=== PATIENT | female | born 1990 | race Caucasian/White ===

== ENCOUNTER 2019-08-09 08:28 | Inpatient (IN) | payer MEDICAID, SELFPAY ==
[2019-08-09] VITALS (22 sets, daily range): BP systolic 85–124; BP diastolic 50–89; PULSE 93–114; RESP 20–37; TEMP 37.1–38.1; O2SAT 86–98; BMI 18.3; BMI 17.2; BMI 17.3
--- NOTE | 2019-08-09 08:37 | EKG12_ITS ---
Test Reason : SOB Blood Pressure : / mmHG Vent. Rate : 107 BPM Atrial Rate : 107 BPM P-R Int : 168 ms QRS Dur : 076 ms QT Int : 340 ms P-R-T Axes : 037 020 025 degrees QTc Int : 453 ms Sinus tachycardia T wave abnormality, consider anterior ischemia Abnormal ECG Confirmed by ANDREW GARAY, BRENDA ([id number]), photograph editor SHANELLE MOREIRA ([id number]) on 08/12/2019 3:21:39 PM Referred By: NASH Confirmed By:BRENDA MORALES MD
--- NOTE | 2019-08-09 08:37 | RAD_ITS ---
STUDY: X-RAY CHEST REASON FOR EXAM: Female, 29 years old. Dyspnea. Possible aspiration. TECHNIQUE: AP semierect portable view. COMPARISON: None. FINDINGS: Left subclavian approach Essl-T-Lvjwpfam tip is in the SVC. Tracheostomy tube in place. Electronic device in the left chest with the radiopaque wire terminating in the left neck base is presumably used for pain control. Pulmonary hypoinflation. No suspicious infiltrates. There is no demonstrated pleural abnormality. Normal size heart. Normal mediastinum and nannette. Normal visualized pulmonary arteries. Normal visualized aortic arch and descending thoracic aorta. U-shaped metallic jason in the thoracolumbar spine with metallic wires from previous scoliosis surgery. Normal visualized ribs, clavicles, and shoulders. There is no demonstrated abnormality of the visualized soft tissue structures of the upper abdomen. RAD/Chest 1 View (Portable) IMPRESSION: 1. No acute cardiopulmonary morphology. 2. Long U-shaped metallic jason in the thoracolumbar spine with multiple metallic wires from previous scoliosis surgery. Electronically Signed: Colt Burciaga MD at 10:16 EDT , Service support ,
[2019-08-09 09:07] LABS: Mucous, Urine 0 SEEN /hpf (<or=2+); Red Blood Cells-Urine 0 SEEN /hpf (0-5)
[2019-08-09 09:08] LABS: Color, Urine Yellow (Yellow); Glucose, Dipstick Normal (Normal); Ketone-Dipstick Negative (Negative); Leukocyte Esterase-Dipstick 25 /ul (Negative); Nitrite-Dipstick Negative (Negative); Occult Blood-Urine 10 /ul (Negative); Protein-Dipstick 100 mg/dl (Negative); Urine Bilirubin Dipstick Negative (Negative); Urine Clarity Sl. Cloudy (Clear); Urine Urobilinogen Normal (Normal)
[2019-08-09 09:15] LABS: Bacteria 2+ /hpf (None Seen); Squamous Epithelial Cells - UA 5-10 SEEN /hpf (5-10); White Blood Cells 0-5 SEEN /hpf (0-5)
--- NOTE | 2019-08-09 09:48 | ED.RN ---
port accessed, mom unsure if power port. Power port catheter used but marked regular until verified. Port flushes very difficult but pump manages without difficulties. Mom very comfortable suctioning patient as she needs, which is very frequent.
--- NOTE | 2019-08-09 09:58 | ED.DCSUM_ITS ---
- ER Visit Summary Date of Service: 08/09/19 Chief Complaint: [Shortness of breath] History of Present Illness: The patient is a 29 F [presents to the emergency department with complaint of shortness of breath that started yesterday initially. 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 The patient has the port flushed once a month. Patient had an episode yesterday of vomiting after being fed through her Prem button. Mother is concerned that the patient may have aspirated. Patient has had history of aspiration pneumonia but has not been hospitalized for over 3 years. Patient normally gets her care at [facility]. Mother states the patient developed a fever today. She has not been out of the house in November and does have nursing that comes into the home but no sick contacts known. No exposures to COVID-19 known.] Patient is nonverbal. Physical Examination: [HEENT-PERRLA, EOMI. Cranial nerves II through XII grossly intact. TMs clear. Mucous membranes moist. No adenopathy. Cardiovascular-regular rate and rhythm without murmur or ectopy Lungs-coarse breath sounds bilaterally with rhonchi noted bilaterally. Mild tachypnea. No excessive muscle use or retractions. Abdomen-normoactive bowel sounds, soft, nontender, no rebound or rigidity, no peritoneal signs. Extremities-intact ?4, normal range of motion, normal pulses, atraumatic] Test Results: [EKG obtained arrival shows sinus tachycardia with a ventricular rate of 107 bpm with no acute ST segment changes noted. CBC with differential count 16.3, hemoglobin 14, hematocrit 40, placed to 78. Chemistry showed a sodium 121, potassium 3.4, chloride 87, CO2 28. Lactate was 0.4. Urinalysis was normal. Chest x-ray showed nothing acute.] Emergency Department Course and Treatment: [Patient had her port accessed on arrival. She was ordered normal saline. I performed a femoral stick to obtain blood from her femoral vein as she has poor vascular access.] I was asked obtain a COVID-19 test on patient prior to admission to the floor which was negative for COVID-19. Treatment Plan: [IV line established and patient was ordered normal saline fluid bolus as well as Zosyn 4.5 g IV.] Disposition: [Admit] Impression: [Sepsis Hypoxia Hyponatremia Aspiration pneumonia-clinically] This note was generated with RealOps dictation software. It may contain incorrect words, spelling, and punctuation that were not noted in review of the chart prior to signing ED Disposition - Plan for ED Patient: Referrals: [facility] Doctor,Out of [NON-STAFF] -
[2019-08-09 09:59] LABS: Absolute Lymphocyte Count 0.68 X10^3/uL (0.83-4.51); Absolute Neutrophil Count 13.9 X10^3/uL (2.0-7.7); Basophil# 0.04 X10^3/uL; Basophil% 0.2 % (0-1); Eosinophil# 0.04 X10^3/uL; Eosinophils% 0.2 % (0-5); Hematocrit 39.6 % (37-47); Hemoglobin 13.9 g/dL (12.0-15.0); Lymphocyte # 0.68 X10^3/ul (4.0); Lymphocyte % 4.2 % (19-41); Mean Corp Hgb Conc 35.1 g/dL (32-36); Mean Corpuscular Hgb 30.8 pg (27.0-32.0); Mean Corpuscular Volume 87.8 fL (81-99); Mean Platelet Vol. 8.4 fl (6.2-12.0); Monocyte# 1.59 X10^3/uL; Monocyte% 9.8 % (0-10); NRBC Flagged by Analyzer 0 % (0-5); Neutrophil # 13.88 X10^3/uL (2.7-7.7); Neutrophil % 85.2 % (47-70); POSITIVE DIFFERENTIAL YES; Platelet Count 278 K/mm3 (150-450); RBC Distribution Width CV 11.5 % (11.6-14.6); RBC Distribution Width SD 37.1 fl (35.1-43.9); Red Blood Count 4.51 M/mm3 (4.2-5.4); White Blood Count 16.3 K/mm3 (4.4-11.0)
[2019-08-09 10:07] LABS: Differential Indicated SCAN CRITERIA MET
[2019-08-09 10:09] LABS: Anion Gap 6 (5-15); BUN 5 mg/dL (7-18); BUN/Creat Ratio 24.8 RATIO (10-20); Calcium,Total 8.6 mg/dL (8.5-10.1); Chloride 87 mmol/L (98-107); EST Glomerular Filtration Rate 447 mL/min (>60); Est Glom Filt Rate - Afr Amer 541 mL/min (>60); Estimated Creatinine Clearance 322.83 ml/min; Glucose 92 mg/dL (74-106); Potassium 3.4 mmol/L (3.5-5.1); Sodium Level 121 mmol/L (136-145)
[2019-08-09] MEDS: 0.9% Normal Saline 1,000 ML 150 ML IV (10:11)
[2019-08-09 10:23] LABS: Lactic Acid 0.4 mmol/L (0.4-1.9)
[2019-08-09 10:27] LABS: Differential Comment SCANNED
--- NOTE | 2019-08-09 14:42 | PCM.HP.STD ---
Problem List (1) Sepsis Status: Acute (2) Hyponatremia Status: Acute (3) Aspiration pneumonia Status: Acute (4) Status post insertion of percutaneous endoscopic gastrostomy (PEG) tube Status: Chronic (5) Status post tracheostomy Status: Chronic (6) GERD (gastroesophageal reflux disease) Status: Chronic (7) Seizure disorder Status: Chronic (8) Mental disability Status: Chronic (9) Developmental disability Status: Chronic (10) Cerebral palsy Status: Chronic History of Present Illness Date of Admission: 08/09/19 Chief Complaint: Shortness of breath. The patient is a 29 year old F with past medical history as mentioned above who is a bedridden since childhood presented to the emergency room by her mother because of shortness of breath. At this time, patient was sleeping but arousable and her mother was at the bedside. Patient is not able to provide any history because of mental and developmental disabilities. Mother gave the full history. According to the mother, patient had an episode of vomiting yesterday, secretions from both her nose, mouth as well as tracheostomy and she aspirated twice. Since then, patient has been short of breath, requiring more oxygen than usual and she had a fever of 101.4 Fahrenheit today morning. Yesterday, her temperature was 99.8 Fahrenheit according to the mother. Mother mentioned that patient has been coughing since then, having lots of secretions coming out from her mouth and tracheostomy tube. Mother mentioned that patient takes around 4000 cc of tube feeds and fluids every day and she has been on this amount for the last 3 years. Patient with a history of mental retardation and developmental disabilities and she has been bedridden since childhood. She had history of Rett syndrome with cerebral palsy and as mentioned above, has been bedridden since younger age. She will history of seizure disorder and she has been on multiple medications including Lamictal, Keppra and phenytoin as well as Banzel. Patient history of GERD but obviously, she is not on PPI. Patient's mother mentioned that she had a history of recurrent aspiration pneumonia with the same scenario. In the emergency department, patient had a low-grade fever, was tachycardic, tachypneic, dyspneic and she was on trach collar with FiO2 of 50%. At home, mother mentioned that patient has been on oxygen at 2 L mainly at night. During daytime, she does not need oxygen. Her routine blood work was remarkable for leukocytosis, sodium of 121, potassium 3.4, BUN of 5, creatinine of 0.20. Lactic acid was normal. Urinalysis revealed cloudy urine, negative for nitrite, there was only 25 leukocyte esterase, there was 0-5 WBCs and 2+ bacteria. Testing for COVID-19 performed and came back negative. Chest x-ray showed no acute infiltrate, consolidation or effusion. EKG revealed sinus tachycardia, no acute ischemic changes. She is being admitted for aspiration pneumonia highly suspected on clinical evaluation with sepsis and also found to have hyponatremia and mild hypokalemia. Past Medical History Past Medical History (Chronic Problems): Chronic Problems Status post insertion of percutaneous endoscopic gastrostomy (PEG) tube (Chronic) Status post tracheostomy (Chronic) GERD (gastroesophageal reflux disease) (Chronic) Seizure disorder (Chronic) Mental disability (Chronic) Developmental disability (Chronic) Cerebral palsy (Chronic) Allergies latex Allergy (Verified 08/09/19 08:30) Rash hydromorphone [From Dilaudid] Adverse Reaction (Verified 08/09/19 08:30) Shortness of breath morphine Adverse Reaction (Verified 08/09/19 08:30) Shortness of breath Home Medications: Ambulatory Orders Medication Instructions Recorded Albuterol Aerosols [Ventolin 2.5 mg INHALATION TID 08/09/19 Aerosols] Cetirizine HCl 10 ml PO DAILY 08/09/19 Lamotrigine [Lamictal] 1.5 tab PO QHS 08/09/19 Lamotrigine [Lamictal] 400 mg PO DAILY 08/09/19 Levetiracetam 10 ml PO BID 08/09/19 Multivitamin,Therapeutic [Therems] 1 ea PO DAILY 08/09/19 Phenytoin 6 ml PO BID 08/09/19 Potassium Chloride 10 ml PO BID 08/09/19 Rufinamide [Banzel] 2 tab PO 4X/DAY 08/09/19 Surgical History: - - PEG tube insertion, port, back surgery. Placement of vagal nerve stimulator. 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 Denies: Anorexia Eyes: Denies: Blurred vision, Double vision, Drainage, Redness HEENT: Denies: Difficulty Hearing, Ear Pain, Eye Pain, Nasal Congestion, Sore Throat Cardiovascular: Denies: Chest Pain, Chest Pressure, Palpitations, Syncope Respiratory: Reports: Cough, Shortness of Breath. Denies: Sputum production, Wheezing Gastrointestinal: Reports: Vomiting. Denies: Abdominal Pain, Constipation, Diarrhea, Nausea Genitourinary: Denies: Dysuria, Frequency, Hematuria Musculoskeletal: Denies: Arm Pain, Back Pain, Foot Pain Skin: Denies: Dryness, Rash Neurological: Denies: Balance problems, Double vision, Change in Speech, Headaches, Incoordination Psychiatric: Denies: Anxiety, Depression Endocrine: Denies: Change in Body Habitus, Polydipsia, Polyuria VTE Information - Inpt Only VTE Present on Admission: Yes VTE Mechan Device Prophylaxis: None VTE Pharm Prophylaxis ordered?: Yes Patient Problems: Active and Suspected Problems Sepsis (Acute) Hyponatremia (Acute) Aspiration pneumonia (Acute) - Physical Exam Vitals/I&O's: Vital Signs Temp Pulse Resp BP Pulse Ox 99.5 F H 105 H 32 H 103/62 97 08/09/19 14:28 08/09/19 14:28 08/09/19 14:28 08/09/19 14:28 08/09/19 14:28 Oxygen Flow Rate (L/min) 14 Oxygen Delivery Method Venturi Mask Weight: 106 lb 11.26 oz Body Mass Index (BMI) 18.3 Intake and Output for Last 24 Hours 08/07/19 08/08/19 08/09/19 23:59 23:59 23:59 Intake Total 100 / 100 Balance 100 / 100 General: - - Sleeping but arousable. Mildly short of breath. HEENT: Atraumatic, PERRLA, Normocephalic Oral: Moist Mucosa, No Gingival or Mucosal Lesions/ Ulcerations Neck: Supple, No JVD, Negative Carotid Bruits, Trachea Midline, Thyroid Normal Size and Texture Lungs: Normal air movement, No wheeze, No rales, Diminished, Rhonchi Cardiovascular: Regular rate, Regular Rhythm, Normal S1, Normal S2, PMI Normal, Tachycardic Abdomen: Bowel Sounds Present, Soft, Non Tender, Non-Distended, No Hepato-splenomegaly, - - PEG tube in place. Extremities: No clubbing, No cyanosis, Edema, - Skin: No rashes, No breakdown Lymphatic: No Cervical, Supraclavicular, or Inguinal Adenopathy Neurological: Cranial nerves II-XII grossly intact, - - Underdeveloped both upper and lower extremities, quadriplegia. Psych/Mental Status: - - Unable to assess. Microbiology Past 72 Hours 08/09/19 10:52 Mucosa - Nasopharyngeal Coronavirus COVID-19 PCR - Final Laboratory Results 08/09/19 09:00: Urine Color Yellow, Urine Clarity Sl. Cloudy, Urine pH 7.0, Ur Specific [place] 1.010, Urine Protein 100 H, Urine Glucose (UA) Normal, Urine Ketones Negative, Urine Occult Blood 10 H, Urine Nitrite Negative, Urine Bilirubin Negative, Urine Urobilinogen Normal, Ur Leukocyte Esterase 25 H, Urine RBC 0 SEEN, Urine WBC 0-5 SEEN, Ur Squamous Epith Cells 5-10 SEEN, Urine Bacteria 2+, Urine Mucus 0 SEEN 08/09/19 09:40: WBC 16.3 H, RBC 4.51, Hgb 13.9, Hct 39.6, MCV 87.8, MCH 30.8, MCHC 35.1, RDW Std Deviation 37.1, RDW Coeff of Mendez 11.5 L, Plt Count 278, MPV 8.4, Immature Gran % (Auto) 0.400, Neut % (Auto) 85.2 H, Lymph % (Auto) 4.2 L, [place] % (Auto) 9.8, Eos % (Auto) 0.2, Baso % (Auto) 0.2, Absolute Neuts (auto) 13.9 H, Absolute Lymphs (auto) 0.68 L, Nucleated RBC % 0, Differential Comment SCANNED, Diff Path Review July08/09/19 09:40: Sodium 121 L, Potassium 3.4 L, Chloride 87 L, Carbon Dioxide 28.0, Anion Gap 6, BUN 5 L, Creatinine 0.20 L, Estim Creat Clear Calc 322.83, Est GFR (MDRD) Af Amer 541, Est GFR (MDRD) Non-Af 447, BUN/Creatinine Ratio 24.8 H, Glucose 92, Calcium 8.6 08/09/19 09:40: Lactic Acid 0.4 08/09/19 10:52: COVID-19 (KATARINA) Cancelled Clinical Impression(s) from Imaging Studies Chest X-Ray 08/09/19 08:37 IMPRESSION: 1. No acute cardiopulmonary morphology. 2. Long U-shaped metallic jason in the thoracolumbar spine with multiple metallic wires from previous scoliosis surgery. Electronically Signed: Colt Burciaga MD at 10:16 EDT , Service support , Current Medications Sodium Chloride () 1,000 mls @ 150 mls/hr IV .[id number] ONE Stop: 08/09/19 15:16 Last Admin: 08/09/19 10:11 Dose: 150 mls/hr Documented by: Assessment/Plan All Active Problems Sepsis (Acute) Hyponatremia (Acute) Aspiration pneumonia (Acute) This is a 29 years old female patient presented to the emergency room because of shortness of breath, cough and fever and she was found to have sepsis attributed to aspiration pneumonia diagnosed by clinical evaluation although chest x-ray revealed no evidence of acute infiltrate and she is being admitted for evaluation and treatment. #1 aspiration pneumonia/sepsis: This is based on clinical evaluation. Chest x-ray reviewed, no obvious infiltrate. Patient had spikes of low-grade fever in the ED, was dyspneic, tachypneic and does have leukocytosis. Lactic acid was normal. Testing for COVID-19 came back negative. Plan: Admit to PCU, cardiac monitoring, blood culture, urine culture, sputum culture, start IV Zosyn, albuterol inhaler 4 times daily, repeat CBC and BMP tomorrow morning, Tylenol PRN through the G-tube, IV Zofran PRN, chest physiotherapy, speech therapy evaluation and treatment, resume tube feeds, PT OT evaluation and treatment. #2 hyponatremia/hypokalemia: Patient's mother mentioned that her sodium and potassium are always low as well as her BUN/creatinine. She mentioned that her daughter takes around 4000 cc of tube feeds and fluids every day which I think it is very large amount. Given her low BUN and creatinine as well as vomiting and aspiration, hypervolemia could be the reason why her sodium is low. Plan: Urine is bloody, serum was bloody, urine sodium, urine potassium, urine creatinine, gentle IV fluids for hydration, repeat BMP tomorrow morning. #3 status post PEG tube/status post tracheostomy: Normally, she is on oxygen at 2 L mainly at night, not on oxygen during daytime. At this time, she is on trach collar with FiO2 of 50%. Plan to continue same, titrate as tolerated. #4 cerebral palsy/MRDD: Patient is bedridden, plan for PT OT, chest physiotherapy, supportive treatment. #5 seizure disorder: Stable, continue Lamictal, Keppra and phenytoin as well as Banzel. #6 GERD: Start IV Pepcid twice daily. #7 CODE STATUS: Full code, discussed with mother. #8 DVT prophylaxis consult [facility]. This note was generated with Entrec dictation software. It may contain incorrect words, spelling, and punctuation that were not noted in checking the note before signing. Inpatient E&M: 11067 Init Hosp L3
[2019-08-09 15:38] LABS: Magnesium 1.7 mg/dL (1.6-2.6)
[2019-08-09 16:10] LABS: Osmolality, Serum 245 mOsm/KG (275-295)
[2019-08-09 18:13] LABS: Urine Chloride 18 mmol/L (Not Establ.)
[2019-08-09 18:19] LABS: Urine Sodium 37 mmol/L (Not Establ.)
[2019-08-09 18:23] LABS: Osmolality, Urine 447 mOsm/KG
[2019-08-09] MEDS: Phenytoin Na 100 MG/4 ML UDC 150 MG GT (18:39)
[2019-08-09] MEDS: levETIRAcetam Oral Solution 500 MG/5 ML 1000 MG GT (18:39)
[2019-08-09] MEDS: LORazepam 1 MG Tablet GT (18:39)
[2019-08-09] MEDS: Albuterol 2.5 MG/3 ML VIAL.NEB. INHALATION ×2 (18:40→23:06)
[2019-08-09] MEDS: Ondansetron 4 MG/2 ML Vial IV (19:51)
[2019-08-09] MEDS: 0.9% Saline Lock 10 ML Syringe IV (19:51)
[2019-08-09] MEDS: lamoTRIgine 100 MG Tablet 300 MG GT (21:00)
[2019-08-09] MEDS: hydroCHLOROthiazide 12.5mg 12.5 MG GT (21:00)
[2019-08-09] MEDS: Famotidine 200 MG/20 ML MDV 20 MG in 0.9% Normal Saline (Pres. free 8 ML 300 MG IV (22:48)
[2019-08-10] VITALS (40 sets, daily range): BP systolic 86–147; BP diastolic 52–120; PULSE 78–122; RESP 18–36; TEMP 36.6–37.9; O2SAT 50–99
[2019-08-10] MEDS: Albuterol 2.5 MG/3 ML VIAL.NEB. INHALATION ×6 (02:45→22:31)
[2019-08-10] MEDS: LORazepam 1 MG Tablet GT ×3 (05:38→23:01)
[2019-08-10 06:08] LABS: Absolute Lymphocyte Count 0.66 X10^3/uL (0.83-4.51); Absolute Neutrophil Count 10.7 X10^3/uL (2.0-7.7); Basophil# 0.03 X10^3/uL; Basophil% 0.2 % (0-1); Eosinophil# 0.01 X10^3/uL; Eosinophils% 0.1 % (0-5); Hematocrit 37.7 % (37-47); Hemoglobin 12.9 g/dL (12.0-15.0); Lymphocyte # 0.66 X10^3/ul (4.0); Lymphocyte % 5.1 % (19-41); Mean Corp Hgb Conc 34.2 g/dL (32-36); Mean Corpuscular Hgb 31.2 pg (27.0-32.0); Mean Corpuscular Volume 91.1 fL (81-99); Mean Platelet Vol. 8.6 fl (6.2-12.0); Monocyte# 1.54 X10^3/uL; Monocyte% 11.8 % (0-10); NRBC Flagged by Analyzer 0 % (0-5); Neutrophil # 10.74 X10^3/uL (2.7-7.7); Neutrophil % 82.2 % (47-70); POSITIVE DIFFERENTIAL YES; Platelet Count 260 K/mm3 (150-450); RBC Distribution Width CV 11.9 % (11.6-14.6); RBC Distribution Width SD 39.5 fl (35.1-43.9); Red Blood Count 4.14 M/mm3 (4.2-5.4); White Blood Count 13.1 K/mm3 (4.4-11.0)
[2019-08-10 06:28] LABS: Differential Indicated SCAN CRITERIA MET
[2019-08-10 06:35] LABS: Anion Gap 8 (5-15); BUN 5 mg/dL (7-18); BUN/Creat Ratio 28.1 RATIO (10-20); Calcium,Total 8.2 mg/dL (8.5-10.1); Chloride 103 mmol/L (98-107); Creatinine, Serum 0.18 mg/dL (0.55-1.02); EST Glomerular Filtration Rate 518 mL/min (>60); Est Glom Filt Rate - Afr Amer 626 mL/min (>60); Estimated Creatinine Clearance 337.95 ml/min; Glucose 75 mg/dL (74-106); Potassium 3.2 mmol/L (3.5-5.1); Sodium Level 136 mmol/L (136-145)
[2019-08-10 08:00] LABS: Differential Comment SCANNED
--- NOTE | 2019-08-10 08:52 | PCM.PROGNOTE ---
Patient Problems: Active and Suspected Problems Sepsis (Acute) Hyponatremia (Acute) Aspiration pneumonia (Acute) Subjective: Chief complaint: Follow-up after admission for aspiration pneumonia, sepsis, hypokalemia and hyponatremia. Patient seen and examined. No acute events overnight. This morning, patient is alert, opening eyes spontaneously, not following commands. She looked slightly agitated. Suction was done this morning and she received albuterol treatment. She is afebrile, tachycardic, pulse ox is 96% on trach collar. Patient's mother mentioned that usually she gets tachycardic upon agitation or when she wants to urinate. - Physical Exam Vitals/I&O's: Vital Signs Temp Pulse Resp BP Pulse Ox 98.6 F 114 H 26 H 121/105 H 96 08/10/19 08:00 08/10/19 08:00 08/10/19 08:00 08/10/19 08:00 08/10/19 08:00 Oxygen Flow Rate (L/min) 12 Oxygen Delivery Method Trach Collar Weight: 100 lb 8.493 oz Body Mass Index (BMI) 17.2 Intake and Output for Last 24 Hours 08/08/19 08/09/19 08/10/19 23:59 23:59 23:59 Intake Total 1776.04 / 1776.04 543.96 / 543.96 Balance 1776.04 / 1776.04 543.96 / 543.96 General: Alert, - - Minimally agitated, not following commands. HEENT: Atraumatic, PERRLA, EOMI, Normocephalic Oral: Moist Mucosa, No Gingival or Mucosal Lesions/ Ulcerations Neck: Supple, No JVD, Negative Carotid Bruits, Trachea Midline, Thyroid Normal Size and Texture Lungs: No wheeze, No rales, Diminished, Rhonchi, - - Decreased breath sounds bilateral, scattered rhonchi. Cardiovascular: Regular rate, Regular Rhythm, Normal S1, Normal S2, PMI Normal, Tachycardic Abdomen: Bowel Sounds Present, Soft, Non Tender, Non-Distended, No Hepato-splenomegaly, - - PEG tube in place. Extremities: No clubbing, No cyanosis, Edema Skin: No rashes, No breakdown Lymphatic: No Cervical, Supraclavicular, or Inguinal Adenopathy Neurological: Cranial nerves II-XII grossly intact, - - Underdeveloped both upper and lower extremities, quadriplegia. Psych/Mental Status: - - Unable to assess. Microbiology Past 72 Hours 08/09/19 10:52 Mucosa - Nasopharyngeal Coronavirus COVID-19 PCR - Final Laboratory Results 08/09/19 09:00: Urine Color Yellow, Urine Clarity Sl. Cloudy, Urine pH 7.0, Ur Specific [place] 1.010, Urine Protein 100 H, Urine Glucose (UA) Normal, Urine Ketones Negative, Urine Occult Blood 10 H, Urine Nitrite Negative, Urine Bilirubin Negative, Urine Urobilinogen Normal, Ur Leukocyte Esterase 25 H, Urine RBC 0 SEEN, Urine WBC 0-5 SEEN, Ur Squamous Epith Cells 5-10 SEEN, Urine Bacteria 2+, Urine Mucus 0 SEEN 08/09/19 09:00: Urine Osmolality 447 08/09/19 09:00: Urine Creatinine 41.10 08/09/19 09:00: Urine Chloride 18 08/09/19 09:00: Urine Potassium 37.0 08/09/19 09:00: Ur Random Sodium 37 08/09/19 09:40: WBC 16.3 H, RBC 4.51, Hgb 13.9, Hct 39.6, MCV 87.8, MCH 30.8, MCHC 35.1, RDW Std Deviation 37.1, RDW Coeff of Mendez 11.5 L, Plt Count 278, MPV 8.4, Immature Gran % (Auto) 0.400, Neut % (Auto) 85.2 H, Lymph % (Auto) 4.2 L, Citrus % (Auto) 9.8, Eos % (Auto) 0.2, Baso % (Auto) 0.2, Absolute Neuts (auto) 13.9 H, Absolute Lymphs (auto) 0.68 L, Nucleated RBC % 0, Differential Comment SCANNED, Diff Path Review July08/09/19 09:40: Sodium 121 L, Potassium 3.4 L, Chloride 87 L, Carbon Dioxide 28.0, Anion Gap 6, BUN 5 L, Creatinine 0.20 L, Estim Creat Clear Calc 322.83, Est GFR (MDRD) Af Amer 541, Est GFR (MDRD) Non-Af 447, BUN/Creatinine Ratio 24.8 H, Glucose 92, Calcium 8.6 08/09/19 09:40: Lactic Acid 0.4 08/09/19 09:40: Serum Osmolality 245 L 08/09/19 09:40: Magnesium 1.7 08/09/19 10:52: COVID-19 (KATARINA) Cancelled 08/10/19 05:10: WBC 13.1 H, RBC 4.14 L, Hgb 12.9, Hct 37.7, MCV 91.1, MCH 31.2, MCHC 34.2, RDW Std Deviation 39.5, RDW Coeff of Mendez 11.9, Plt Count 260, MPV 8.6, Immature Gran % (Auto) 0.600, Neut % (Auto) 82.2 H, Lymph % (Auto) 5.1 L, [place] % (Auto) 11.8 H, Eos % (Auto) 0.1, Baso % (Auto) 0.2, Absolute Neuts (auto) 10.7 H, Absolute Lymphs (auto) 0.66 L, Nucleated RBC % 0, Differential Comment SCANNED, Diff Path Review July08/10/19 05:10: Sodium 136, Potassium 3.2 L, Chloride 103, Carbon Dioxide 25.0, Anion Gap 8, BUN 5 L, Creatinine 0.18 L, Estim Creat Clear Calc 337.95, Est GFR (MDRD) Af Amer 626, Est GFR (MDRD) Non-Af 518, BUN/Creatinine Ratio 28.1 H, Glucose 75, Calcium 8.2 L Current Medications Albuterol Sulfate (Ventolin Aerosols) 2.5 mg INHALATION Q4H PRN PRN Reason: SOB/Wheezing Last Admin: 08/10/19 07:26 Dose: 2.5 mg Documented by: Enoxaparin Sodium (Lovenox) 30 mg SC DAILY [facility] Famotidine (Pepcid) 20 mg GT BID [facility] Last Admin: 08/09/19 22:48 Dose: Not Given Documented by: Hydrochlorothiazide () 12.5 mg GT BID [facility] Last Admin: 08/09/19 21:00 Dose: 12.5 mg Documented by: Famotidine 20 mg/ Sodium (Chloride) 10 mls @ 300 mls/hr IV Q12 [facility] Last Infusion: 08/09/19 22:50 Dose: Infused Documented by: Piperacillin Sod/Tazobactam (Sod 3.375 gm/ Sodium Chloride) 50 mls @ 12.5 mls/hr IV Q8 [facility] Last Admin: 08/10/19 05:37 Dose: 12.5 mls/hr Documented by: Sodium Chloride () 250 mls @ 15 mls/hr IV .[id number] PRN PRN Reason: Saline Flush Sodium Chloride () 250 mls @ 15 mls/hr IV .[id number] PRN PRN Reason: Additional IVPB Infusion Potassium Chloride () 10 meq in 100 mls @ 100 mls/hr IV BOLUS Q1H [facility] Stop: 08/10/19 10:59 Sodium Chloride () 1,000 mls @ 60 mls/hr IV .[id number] [facility] Lactobacillus Acidophilus (Acidophilus) 1 tablet GT TID [facility] Last Admin: 08/10/19 05:38 Dose: 1 tablet Documented by: Lamotrigine (Lamictal) 300 mg GT QHS [facility] Last Admin: 08/09/19 21:00 Dose: 300 mg Documented by: Lamotrigine (Lamictal) 400 mg GT DAILY [facility] Levetiracetam (Keppra Oral Solution) 1,000 mg GT BID [facility] Last Admin: 08/09/19 18:39 Dose: 1,000 mg Documented by: Loratadine (Claritin) 10 mg GT DAILY [facility] Lorazepam (Ativan) 1 mg GT DAILY PRN PRN Reason: AGITATION Lorazepam (Ativan) 1 mg GT TID [facility] Last Admin: 08/10/19 05:38 Dose: 1 mg Documented by: Non-Formulary Medication (Rufinamide) 2 tab GT 4X/DAY [facility] Non-Formulary Medication (Nut.Tx.Impaired Digestive Fxn [Peptamen]) 150 ml GT 5X/DAY [facility] Ondansetron HCl (Zofran) 4 mg IV Q8H PRN PRN PRN Reason: NAUSEA/VOMITING Last Admin: 08/09/19 19:51 Dose: 4 mg Documented by: Phenytoin Sodium (Dilantin) 150 mg GT BID [facility] Last Admin: 08/09/19 18:39 Dose: 150 mg Documented by: Sodium Chloride () 10 - 40 ml IV UD PRN PRN Reason: SALINE FLUSH Last Admin: 08/09/19 19:51 Dose: 20 ml Documented by: Medical Necessity - Tobacco Use Smoking Status: Never smoker Tobacco Use: Non-smoker Assessment/Plan All Active Problems Sepsis (Acute) Hyponatremia (Acute) Aspiration pneumonia (Acute) This is a 29 years old female patient presented to the emergency room because of shortness of breath, cough and fever and she was found to have sepsis attributed to aspiration pneumonia diagnosed by clinical evaluation although chest x-ray revealed no evidence of acute infiltrate and she is being admitted for evaluation and treatment. #1 aspiration pneumonia/sepsis: She is on IV Zosyn. She has been afebrile, WBC is trending down. Blood pressure stable, slightly tachycardic, on trach collar. Sputum, urine and blood cultures are pending. She tested negative for COVID-19. Plan to continue same treatment, repeat CBC and BMP tomorrow morning.. #2 hyponatremia/hypokalemia: Both are chronic. Serum magnesium is normal. Sodium replaced and corrected, potassium still low. Plan: We will give IV potassium chloride replacement, change IV fluids to normal saline only at 60 cc/h, repeat BMP tomorrow morning. #3 status post PEG tube/status post tracheostomy: Normally, she is on oxygen at 2 L mainly at night, not on oxygen during daytime. Remained on trach collar with FiO2 50%. Started back on her home medications through the PEG tube. #4 cerebral palsy/MRDD: Patient is bedridden, continue PT OT, chest physiotherapy, supportive treatment. #5 seizure disorder: Stable, continue Lamictal, Keppra and phenytoin as well as Banzel. #6 GERD: She is on IV Pepcid twice daily. #7 CODE STATUS: Full code, discussed with mother. #8 DVT prophylaxis: Subcu Lovenox. This note was generated with [employer] dictation software. It may contain incorrect words, spelling, and punctuation that were not noted in checking the note before signing. Inpatient E&M: 96489 Subs Hosp L2
[2019-08-10] MEDS: 0.9% Normal Saline 1,000 ML 60 ML IV (10:06)
[2019-08-10] MEDS: Potassium Chloride 10mEq/100mL 10 MEQ/100 ML IV.SOLN. 100 MEQ IV BOLUS ×2 (10:06→11:17)
[2019-08-10] MEDS: Famotidine 200 MG/20 ML MDV 20 MG in 0.9% Normal Saline (Pres. free 8 ML 300 MG IV (10:06)
[2019-08-10] MEDS: 0.9% Saline Lock 10 ML Syringe IV (10:09)
[2019-08-10] MEDS: hydroCHLOROthiazide 12.5mg 12.5 MG GT ×2 (10:15→22:59)
[2019-08-10] MEDS: levETIRAcetam Oral Solution 500 MG/5 ML 1000 MG GT ×2 (10:15→22:59)
[2019-08-10] MEDS: Phenytoin Na 100 MG/4 ML UDC 150 MG GT ×2 (10:15→22:56)
[2019-08-10] MEDS: Enoxaparin 30 MG/0.3 ML Syringe SC (10:16)
[2019-08-10] MEDS: lamoTRIgine 100 MG Tablet 400 MG GT (10:17)
[2019-08-10] MEDS: Loratadine 10 MG Tablet GT (10:17)
[2019-08-10] MEDS: lamoTRIgine 100 MG Tablet 300 MG GT (22:59)
[2019-08-10] MEDS: Famotidine 20 MG Tablet GT (22:59)
[2019-08-11] VITALS (26 sets, daily range): BP systolic 90–143; BP diastolic 60–105; PULSE 81–112; RESP 16–28; TEMP 36.4–37; O2SAT 50–98; BMI 17.2
[2019-08-11] MEDS: 0.9% Normal Saline 1,000 ML 60 ML IV (03:02)
[2019-08-11] MEDS: Albuterol 2.5 MG/3 ML VIAL.NEB. INHALATION ×5 (03:31→20:04)
[2019-08-11] MEDS: LORazepam 1 MG Tablet GT ×3 (05:45→22:44)
--- NOTE | 2019-08-11 07:45 | PN_ITS ---
Patient Problems: Active and Suspected Problems Sepsis (Acute) Hyponatremia (Acute) Aspiration pneumonia (Acute) Reason for Visit: Follow-up aspiration pneumonia Subjective: Patient is a 29-year-old lady with history of cerebral palsy admitted with progressive shortness of breath and assessment of aspiration pneumonia made admitted to monitored bed where patient is currently being managed Objective: GENERAL: Patient is noncommunicative HEENT: Atraumatic; EYES; Anicteric, Normal Conjunctiva NECK; trach collar in place RESPIRATORY: Diminished to auscultation CARDIOVASCULAR: Regular S1 S2, GI: soft, PEG tube in situ : No Renal angle tenderness; EXTREMITIES: No edema, no clubbing, MUSCULOSKELETAL: no muscle waisting NEURO: Patient is noncommunicative SKIN: No Rash Vitals/I&O's: Vital Signs Temp Pulse Resp BP Pulse Ox 98.4 F 93 22 H 105/77 95 08/11/19 07:00 08/11/19 07:12 08/11/19 07:12 08/11/19 07:00 08/11/19 07:13 Oxygen Flow Rate (L/min) 12 Oxygen Delivery Method Trach Collar Weight: 45.6 kg Body Mass Index (BMI) 17.2 Intake and Output for Last 24 Hours 08/09/19 08/10/19 08/11/19 23:59 23:59 23:59 Intake Total 1776.04 / 1776.04 2870.21 / 2870.21 1310 / 1310 Balance 1776.04 / 1776.04 2870.21 / 2870.21 1310 / 1310 Microbiology Past 72 Hours 08/09/19 09:00 Urine Catheter - Catheter Urine Culture - Preliminary GNR lactose waiter/waitress counter 08/09/19 08:50 Sputum, Expectorated/Coughed Gram Stain - Final 08/09/19 08:50 Sputum, Expectorated/Coughed Respiratory Culture - Preliminary Gram negative jason Staphylococcus aureus Alpha Hemolytic Streptococcus 08/09/19 10:52 Mucosa - Nasopharyngeal Coronavirus COVID-19 PCR - Final Laboratory Results 08/10/19 05:10: Differential Comment SCANNED, Diff Path Review July08/11/19 07:38: WBC Pending, RBC Pending, Hgb Pending, Hct Pending, MCV Pending, MCH Pending, MCHC Pending, RDW Std Deviation Pending, RDW Coeff of Mendez Pending, Plt Count Pending, Neut % (Auto) Pending, Absolute Neuts (auto) Pending 08/11/19 07:38: Sodium Pending, Potassium Pending, Chloride Pending, Carbon Dioxide Pending, Anion Gap Pending, BUN Pending, Creatinine Pending, Est GFR (MDRD) Af Amer Pending, Est GFR (MDRD) Non-Af Pending, BUN/Creatinine Ratio Pending, Glucose Pending, Calcium Pending Current Medications Albuterol Sulfate (Ventolin Aerosols) 2.5 mg INHALATION Q4H PRN PRN Reason: SOB/Wheezing Last Admin: 08/11/19 07:11 Dose: 2.5 mg Documented by: Enoxaparin Sodium (Lovenox) 30 mg SC DAILY [facility] Last Admin: 08/10/19 10:16 Dose: 30 mg Documented by: Famotidine (Pepcid) 20 mg GT BID [facility] Last Admin: 08/10/19 22:59 Dose: 20 mg Documented by: Hydrochlorothiazide () 12.5 mg GT BID [facility] Last Admin: 08/10/19 22:59 Dose: 12.5 mg Documented by: Piperacillin Sod/Tazobactam (Sod 3.375 gm/ Sodium Chloride) 50 mls @ 12.5 mls/hr IV Q8 [facility] Last Admin: 08/11/19 05:49 Dose: 12.5 mls/hr Documented by: Sodium Chloride () 250 mls @ 15 mls/hr IV .[id number] PRN PRN Reason: Saline Flush Sodium Chloride () 250 mls @ 15 mls/hr IV .[id number] PRN PRN Reason: Additional IVPB Infusion Sodium Chloride () 1,000 mls @ 60 mls/hr IV .[id number] [facility] Last Admin: 08/11/19 03:02 Dose: 60 mls/hr Documented by: Lactobacillus Acidophilus (Acidophilus) 1 tablet GT TID [facility] Last Admin: 08/11/19 05:45 Dose: 1 tablet Documented by: Lamotrigine (Lamictal) 300 mg GT QHS [facility] Last Admin: 08/10/19 22:59 Dose: 300 mg Documented by: Lamotrigine (Lamictal) 400 mg GT DAILY [facility] Last Admin: 08/10/19 10:17 Dose: 400 mg Documented by: Levetiracetam (Keppra Oral Solution) 1,000 mg GT BID [facility] Last Admin: 08/10/19 22:59 Dose: 1,000 mg Documented by: Loratadine (Claritin) 10 mg GT DAILY [facility] Last Admin: 08/10/19 10:17 Dose: 10 mg Documented by: Lorazepam (Ativan) 1 mg GT DAILY PRN PRN Reason: AGITATION Lorazepam (Ativan) 1 mg GT TID [facility] Last Admin: 08/11/19 05:45 Dose: 1 mg Documented by: Non-Formulary Medication (Nut.Tx.Impaired Digestive Fxn [Peptamen]) 150 ml GT 5X/DAY [facility] Ondansetron HCl (Zofran) 4 mg IV Q8H PRN PRN PRN Reason: NAUSEA/VOMITING Last Admin: 08/09/19 19:51 Dose: 4 mg Documented by: Phenytoin Sodium (Dilantin) 150 mg GT BID [facility] Last Admin: 08/10/19 22:56 Dose: 150 mg Documented by: Sodium Chloride () 10 - 40 ml IV UD PRN PRN Reason: SALINE FLUSH Last Admin: 08/10/19 10:09 Dose: 10 ml Documented by: STROKE Vital Signs/Narrative: Vital Signs Temp Pulse Resp BP Pulse Ox 08/11/19 07:13 95 08/11/19 07:12 93 22 H 08/11/19 07:00 98.4 F 81 20 H 105/77 95 08/11/19 06:50 85 08/11/19 06:00 98.6 F 86 20 H 100/78 95 08/11/19 05:00 98.3 F 84 28 H 95/78 95 08/11/19 04:00 98.2 F 96 21 H 109/62 94 Medical Necessity - Tobacco Use Smoking Status: Never smoker Tobacco Use: Non-smoker Assessment/Plan All Active Problems Sepsis (Acute) Hyponatremia (Acute) Aspiration pneumonia (Acute) Patient is a 29-year-old lady with history of cerebral palsy admitted with progressive shortness of breath and assessment of aspiration pneumonia made admitted to monitored bed where patient is currently being managed . Sepsis secondary to aspiration pneumonia ?Patient was managed with Zosyn. Improving clinically 2. Hypokalemia ?Corrected per protocol 3. Hyponatremia ?Resolved with rehydration 4. Cerebral palsy ?With subsequent MRDD patient is post PEG as well as trach 5. Seizure disorder ?Patient is on Lamictal and Keppra as well as Banzel did continue 6. GERD ?Patient is on Pepcid 7. DVT prophylaxis SC Lovenox Inpatient E&M: 06779 Subs Hosp L2
[2019-08-11 07:49] LABS: Absolute Lymphocyte Count 1.17 X10^3/uL (0.83-4.51); Absolute Neutrophil Count 7.9 X10^3/uL (2.0-7.7); Basophil# 0.02 X10^3/uL; Basophil% 0.2 % (0-1); Eosinophil# 0.07 X10^3/uL; Eosinophils% 0.7 % (0-5); Hematocrit 33.7 % (37-47); Hemoglobin 12.1 g/dL (12.0-15.0); Lymphocyte # 1.17 X10^3/ul (4.0); Lymphocyte % 11.5 % (19-41); Mean Corp Hgb Conc 35.9 g/dL (32-36); Mean Corpuscular Hgb 31.9 pg (27.0-32.0); Mean Corpuscular Volume 88.9 fL (81-99); Mean Platelet Vol. 8.3 fl (6.2-12.0); Monocyte# 0.95 X10^3/uL; Monocyte% 9.4 % (0-10); NRBC Flagged by Analyzer 0 % (0-5); Neutrophil # 7.87 X10^3/uL (2.7-7.7); Neutrophil % 77.6 % (47-70); Platelet Count 220 K/mm3 (150-450); RBC Distribution Width CV 12.2 % (11.6-14.6); RBC Distribution Width SD 39.2 fl (35.1-43.9); Red Blood Count 3.79 M/mm3 (4.2-5.4); White Blood Count 10.1 K/mm3 (4.4-11.0)
[2019-08-11 08:18] LABS: Anion Gap 11 (5-15); BUN 3 mg/dL (7-18); Calcium,Total 8.4 mg/dL (8.5-10.1); Chloride 96 mmol/L (98-107); EST Glomerular Filtration Rate 631 mL/min (>60); Est Glom Filt Rate - Afr Amer 763 mL/min (>60); Glucose 65 mg/dL (74-106); Potassium 2.5 mmol/L (3.5-5.1); Sodium Level 134 mmol/L (136-145)
[2019-08-11 08:25] LABS: Creatinine, Serum < 0.15 mg/dL (0.55-1.02)
[2019-08-11] MEDS: Potassium Chloride 10mEq/100mL 10 MEQ/100 ML IV.SOLN. 100 MEQ IV BOLUS ×4 (09:40→13:23)
[2019-08-11] MEDS: Loratadine 10 MG Tablet GT (10:00)
[2019-08-11] MEDS: Phenytoin Na 100 MG/4 ML UDC 150 MG GT ×2 (10:00→22:29)
[2019-08-11] MEDS: levETIRAcetam Oral Solution 500 MG/5 ML 1000 MG GT ×2 (10:04→22:30)
[2019-08-11] MEDS: Famotidine 20 MG Tablet GT ×2 (10:04→22:30)
[2019-08-11] MEDS: Enoxaparin 30 MG/0.3 ML Syringe SC (10:05)
[2019-08-11] MEDS: lamoTRIgine 100 MG Tablet 400 MG GT (10:26)
--- NOTE | 2019-08-11 11:33 | PCM.NTREPORT ---
Nutrition Therapy Report - History Nutrition Services has been consulted to:: Manage enteral nutrition Current diet / nutrition support order:: NPO/ TF support - Anthropometric Measurements Height:: 5 ft 4 in Weight:: 45.6 kg Body Mass Index (BMI):: 17.2 - Relevant Labs Relevant Labs:: WBC 13.1 K/mm3 (4.4-11.0) H 08/10/19 05:10 RBC 3.79 M/mm3 (4.2-5.4) L 08/11/19 07:38 Hct 33.7 % (37-47) L 08/11/19 07:38 RDW Coeff of Mendez 11.5 % (11.6-14.6) L 08/09/19 09:40 Neut % (Auto) 77.6 % (47-70) H 08/11/19 07:38 Lymph % (Auto) 11.5 % (19-41) L 08/11/19 07:38 [place] % (Auto) 11.8 % (0-10) H 08/10/19 05:10 Absolute Neuts (auto) 7.9 X10^3/uL (2.0-7.7) H 08/11/19 07:38 Absolute Lymphs (auto) 0.66 X10^3/uL (0.83-4.51) L 08/10/19 05:10 Sodium 134 mmol/L (136-145) L 08/11/19 07:38 Potassium 2.5 mmol/L (3.5-5.1) L* 08/11/19 07:38 Chloride 96 mmol/L (98-107) L 08/11/19 07:38 BUN 3 mg/dL (7-18) L 08/11/19 07:38 Creatinine < 0.15 mg/dL (0.55-1.02) L 08/11/19 07:38 BUN/Creatinine Ratio 28.1 RATIO (10-20) H 08/10/19 05:10 Glucose 65 mg/dL (74-106) L 08/11/19 07:38 Serum Osmolality 245 mOsm/KG (275-295) L 08/09/19 09:40 Calcium 8.4 mg/dL (8.5-10.1) L 08/11/19 07:38 - Assessment Food / Nutrition-Related History:: Pt admitted with sepsis/aspiration pneumonia and hyponatremia. Spoke to pt's mother (Karen) at length today--she did bring TF from home & does not want [facility] formulary comparable substitution. Mom reports she has a very sensitive stomach typically when pt is acutely ill, Mom holds TF for 1 to 2 days & starts very slowly with Pedialyte on day 2-3 then restarts TF of Peptamen Intense VHP with only 50 ml on day 3-4 with gradual increase to typical goal TF of bolus 150 ml 4 times per day plus 100 ml last bolus of the day (not 150 ml) for total 700 ml/day. Informed pt that [facility] does not have pedialytle but, pt is receiving IV fluids at this time. Mom agrees to restart TF very very slowly today with 50 ml bolus 5 times per day & increase by 25 ml per day to goal TF of 150 ml bolus 5 times per day by Monday 08/14. Mom brought TF product from home & this RD spoke to Quiana, pharmacist to clarify TF order. No new wt to assess since admit and labs noted--Na improving & K+ low. Discussed TF plan with [facility]. Peptamen Intense VHP provides 840 ml water/L, 1 kcal/ml, 92 gm pro/L so, estimated nutrition provided with pt's home TF regimen~588 ml free water, 700 kcal and 64.4 gm protein/day. Re-estimated nutrition needs~4693-7952 kcal & ~55-65 gm protein/day and ~1500 ml free water/day. Home TF appears to be adequate to meet estimated protein needs but, inadequate to meet estimated energy/kcal needs, only meeting~50% of calorie needs. Mom is very adamant that TF must start slowly prior to advancing to goal and reports that she follows with a paper coater for TF managment. Pt has had gradual wt loss over the past several years per Mom but, currently maintaining wt. - Nutrition Diagnosis Problem / Etiology / Signs & Symptoms (PES):: Increased nutrition needs for merrill/pro related to inflammation/sepsis and inability to swallow as evidenced by need for TF support/NPO. Evidence of Malnutrition Exists:: No - Nutrition Intervention Nutrition Prescription:: Peptamen Intense VHP brought from home--will start bolus 50 ml 5 times per day & increase each bolus feed by 25 ml each day to goal 150 ml bolus 5 times per day (should be reached by 08/14). Spoke to Quiana in pharmacy to clarify home TF as ordered on admit. TF bolus at goal 150 ml Q feed 5 times daily will provide 750 kcal, 69 gm protein and 630 ml free water per day. Suggest water flush to start ~20 ml Q bolus and increase by ~20 ml free water each day as TF titrated up to goal bolus feeding to provide an additonal 100-600 ml/day as TF increased. - Food / Nutrient Delivery Interventions Summary of nutrition intervention:: Peptamen Intense VHP brought from home--will start bolus 50 ml 5 times per day & increase each bolus feed by 25 ml each day to goal 150 ml bolus 5 times per day (should be reached by 08/14). Spoke to Quiana in pharmacy to clarify home TF as ordered on admit. TF bolus at goal 150 ml Q feed 5 times daily will provide 750 kcal, 69 gm protein and 630 ml free water per day. Suggest water flush to start ~20 ml Q bolus and increase by ~20 ml free water each day as TF titrated up to goal bolus feeding to provide an additonal 100-600 ml/day as TF increased. Maintain NPO--pt does not take food/nutrition by mouth. Nutrition support ordered as / adjusted to:: Peptamen Intense VHP brought from home--will start bolus 50 ml 5 times per day today & increase each bolus feed by 25 ml each day to goal 150 ml bolus 5 times per day (should be reached by 08/14) Nutrition education provided?: Yes - to Karen pt's mom--she is in agreement with TF plan. - MNT Monitoring Further MNT monitoring and evaluation required?: Yes MNT Follow-up in:: 1-2 days
[2019-08-11 11:49] LABS: Pathologist Review Reviewed
[2019-08-11 11:52] LABS: Pathologist Review Reviewed
--- NOTE | 2019-08-11 13:48 | CASEMGMT ---
Addendum entered by Radha Morton 08/11/19 14:21: Patient is also active with [employer] and her rn field case manager is Kylahbecky Velasco. SW will notify her that patient is in the hospital. Radha BACK Original Note: Assessment- SW called patient's mom and completed assessment. Patient is non ambulatory and non verbal. Living situation- Patient lives with her mom in a 2 story home with a ramp entrance. Patient is set up on the first floor. PCP: Her PCP retired. She will be seeing Dr Parish Leonard with [facility] Specialists: Nephrology-Dr Duran at [facility], Dr Winston Medina- ENT in [place], Dr Anabella Vasquez-Endocrinology at [facility], Dr Frida Maya-Neurology at [facility], Dr Johnson- Pulmonology [facility], Dr Barber-Urology at [facility], and Palliative Care with [facility]: [facility] in [place] DME: Percussor, pulse ox, video monitor, Ambu bag, hospital bed, suction machine, O2 and nebulizer through [employer], air pressure mattress, humidifier for her trach, wheelchair, bath seat, and a van with a lift. ADL's/IADL's: Patient's mom helps patient with everything. Patient is bedbound and has been. Past SNF/rehab: None Past HH: current with [facility]. She has nurses 10 hours a day 7 days a week and she gets 3 hours of respite a week. LW: None POA: None Plan: Plan is to return home with patient's mom who is her caregiver. They will resume their home health nursing. Patient gets her trach supplies and O2 through [employer] and her port flushing supplies through [employer]. She could not remember the name of the company they go through for her tube feeds. She does not anticipate any additional needs at d/c. She will need transportation arranged for patient. She has a van with a lift, but her dies last year and she cannot transport patient on her own due to patient needing frequent suctioning. MOE will notify [facility] that patient is in the hospital. Radha BACK
--- NOTE | 2019-08-11 14:27 | CASEMGMT ---
MOE left a message for Kylah Velasco with [employer] notifying her of patient's admission. Radha DUPONT MSW
[2019-08-11 15:15] LABS: Anion Gap 3 (5-15); BUN 4 mg/dL (7-18); BUN/Creat Ratio 20.5 RATIO (10-20); Calcium,Total 8.6 mg/dL (8.5-10.1); Chloride 103 mmol/L (98-107); EST Glomerular Filtration Rate 466 mL/min (>60); Est Glom Filt Rate - Afr Amer 564 mL/min (>60); Estimated Creatinine Clearance 304.16 ml/min; Glucose 96 mg/dL (74-106); Potassium 5.4 mmol/L (3.5-5.1); Sodium Level 134 mmol/L (136-145)
[2019-08-11] MEDS: lamoTRIgine 100 MG Tablet 300 MG GT (22:30)
[2019-08-11] MEDS: hydroCHLOROthiazide 12.5mg 12.5 MG GT (22:31)
[2019-08-12] VITALS (15 sets, daily range): BP systolic 96–120; BP diastolic 49–103; PULSE 75–118; RESP 16–28; TEMP 36.3–36.7; O2SAT 86–97
[2019-08-12] MEDS: 0.9% Normal Saline 1,000 ML 60 ML IV (01:40)
[2019-08-12] MEDS: LORazepam 1 MG Tablet GT ×2 (06:26→13:25)
[2019-08-12] MEDS: Albuterol 2.5 MG/3 ML VIAL.NEB. INHALATION ×2 (07:10→11:18)
[2019-08-12 08:03] LABS: Hematocrit 35.9 % (37-47); Hemoglobin 12.4 g/dL (12.0-15.0); Mean Corp Hgb Conc 34.5 g/dL (32-36); Mean Corpuscular Hgb 31.2 pg (27.0-32.0); Mean Corpuscular Volume 90.4 fL (81-99); Mean Platelet Vol. 8.4 fl (6.2-12.0); Platelet Count 270 K/mm3 (150-450); RBC Distribution Width CV 11.9 % (11.6-14.6); RBC Distribution Width SD 39.3 fl (35.1-43.9); Red Blood Count 3.97 M/mm3 (4.2-5.4); White Blood Count 8.6 K/mm3 (4.4-11.0)
[2019-08-12 08:33] LABS: Anion Gap 6 (5-15); BUN 3 mg/dL (7-18); Calcium,Total 8.1 mg/dL (8.5-10.1); Chloride 100 mmol/L (98-107); Creatinine, Serum < 0.15 mg/dL (0.55-1.02); Glucose 92 mg/dL (74-106); Magnesium 1.4 mg/dL (1.6-2.6); Potassium 2.8 mmol/L (3.5-5.1); Sodium Level 135 mmol/L (136-145)
[2019-08-12 08:34] LABS: EST Glomerular Filtration Rate 631 mL/min (>60); Est Glom Filt Rate - Afr Amer 765 mL/min (>60)
[2019-08-12] MEDS: Loratadine 10 MG Tablet GT (09:10)
[2019-08-12] MEDS: Famotidine 20 MG Tablet GT (09:10)
[2019-08-12] MEDS: Phenytoin Na 100 MG/4 ML UDC 150 MG GT (09:10)
[2019-08-12] MEDS: hydroCHLOROthiazide 12.5mg 12.5 MG GT (09:11)
[2019-08-12] MEDS: lamoTRIgine 100 MG Tablet 400 MG GT (09:11)
[2019-08-12] MEDS: Enoxaparin 30 MG/0.3 ML Syringe SC (09:12)
[2019-08-12] MEDS: levETIRAcetam Oral Solution 500 MG/5 ML 1000 MG GT (09:13)
--- NOTE | 2019-08-12 10:49 | DCINST_ITS ---
- Discharge Diagnoses Current Active Problems: Current Active and Chronic Problems Sepsis (Acute) Hyponatremia (Acute) Aspiration pneumonia (Acute) Status post insertion of percutaneous endoscopic gastrostomy (PEG) tube (Chronic) Status post tracheostomy (Chronic) GERD (gastroesophageal reflux disease) (Chronic) Seizure disorder (Chronic) Mental disability (Chronic) Developmental disability (Chronic) Cerebral palsy (Chronic) You will use the following diet at home:: Other - Tube feeding Your food should be the consistency of: Regular Allergies/Adverse Reactions: Allergies latex Allergy (Verified 08/09/19 08:30) Rash hydromorphone [From Dilaudid] Adverse Reaction (Verified 08/09/19 08:30) Shortness of breath morphine Adverse Reaction (Verified 08/09/19 08:30) Shortness of breath Medications to take at Discharge Albuterol Aerosols [Ventolin Aerosols] 2.5 mg INHALATION TID 08/09/19 Cetirizine HCl 10 ml PO DAILY 08/09/19 Denosumab [Prolia] 60 mg SQ 08/09/19 Famotidine [Pepcid] 20 mg PO BID 08/09/19 Hydrochlorothiazide 2 tab JT BID 08/09/19 Lactobacillus Acidophilus [Acidophilus] 1 ea PO TID 08/09/19 Lamotrigine [Lamictal] 1.5 tab PO QHS 08/09/19 Lamotrigine [Lamictal] 400 mg PO DAILY 08/09/19 Levetiracetam 10 ml PO BID 08/09/19 Lorazepam [Ativan] 1 mg PO DAILY PRN 08/09/19 Lorazepam [Ativan] 1 mg PO TID 08/09/19 Multivitamin,Therapeutic [Therems] 1 ea PO DAILY 08/09/19 Nut.tx.impaired Digestive Fxn [Peptamen] 150 ml GT 5X/DAY 08/09/19 Phenytoin 6 ml PO BID 08/09/19 Rufinamide [Banzel] 2 tab PO 4X/DAY 08/09/19 Amox/Clav 400mg/5ml Susp [Augmentin Suspension 400mg/5ml] 800 mg PO BIDCM #140 ml 08/12/19 Potassium Chloride 15 ml PO BID #0 08/12/19 The following prescriptions were given: Amox/Clav 400mg/5ml Susp [Augmentin Suspension 400mg/5ml] 800 mg PO BIDCM #140 ml Transmission Status: Received by JOON [facility]UMAS [facility] Primary Care Physician: [facility] Doctor,Out of [NON-STAFF] - Please follow up with your Primary Care Physician in: Follow-up with primary care physician for repeat BMP on 08/15/2019 Test Results: Test results from this visit will be discussed in further detail at your follow- up appointment, if applicable. Proposed Discharge Date: 08/12/19
--- NOTE | 2019-08-12 11:33 | CASEMGMT ---
Addendum entered by Laura Haney 08/12/19 15:07: Per RT Jeanie, pt de-satted on RA via trach collar down to 86%. Pt requiring 2 L/M via trach collar to keep pulse ox @ 91%. Dr Bradshaw notified and new order received for 2 L/M via trach collar continuously. Per Mahsa @ [facility], CMN form w/updated oxygen documentation form works as an updated script. This was signed by Dr Bradshaw and faxed to [facility] along w/documented Home oxygen testing completed by RT Jeanie. ALEXIS CHARLES to room to talk w/pt's mother. She is aware of pt requiring O2 continuously. She denies having any other discharge planning/needs. Addendum entered by Laura Haney 08/12/19 14:43: Oxygen has been weaned and pt is currently on RA/trach collar and pulse ox maintaining @ 93%. Pt does not qualify for increasing oxygen than current Home O2 @ HS. Discharge summary faxed to [facility] at this time. Original Note: ALEXIS CHARLES NOTE: Call placed to [facility] to inquire about pt's current oxygen orders. Pt's current oxygen orders are for 2.5 L/M O2 @ HS. Spoke w/Tameka HERNDON. She states she is currently weaning pt's oxygen at this time and will notify ALEXIS CHARLES if she is unable to get pt weaned to RA. [facility]: Call placed to Paulina @ [facility]. She was made aware pt is discharging today. Discharge instructions faxed to [facility] at this time. H/P and progress note also faxed at this time. [facility]: Erendira BROWN RN, CM
--- NOTE | 2019-08-12 11:46 | CASEMGMT ---
Patient will be discharged today. MOE called [facility] and arranged for patient to get picked up at 3p via cot. ALEXIS CM taking care of notifying home health of discharge. Plan: Home with resumption of [facility] home health and [facility] will transport home via cot. Radha DUPONT MSW
[2019-08-12 14:20] LABS: Potassium 3.5 mmol/L (3.5-5.1)
--- NOTE | 2019-08-12 14:29 | PCM.DC.SUM ---
Discharge Date and Diagnosis - Problem List Patient Problems: Active and Suspected Problems Sepsis (Acute) Hyponatremia (Acute) Aspiration pneumonia (Acute) Date of Admission: 08/09/19 Date of Discharge: 08/12/19 - Primary Discharge Diagnosis Active and Suspected Problems Sepsis (Acute) Hyponatremia (Acute) Aspiration pneumonia (Acute) - Secondary Discharge Diagnosis Chronic Problems Status post insertion of percutaneous endoscopic gastrostomy (PEG) tube (Chronic) Status post tracheostomy (Chronic) GERD (gastroesophageal reflux disease) (Chronic) Seizure disorder (Chronic) Mental disability (Chronic) Developmental disability (Chronic) Cerebral palsy (Chronic) Hospital Course and Treatment Summary of Care Provided: Patient is a 29-year-old lady with history of cerebral palsy admitted with progressive shortness of breath and assessment of aspiration pneumonia made admitted to monitored bed where patient is currently being managed . Sepsis secondary to aspiration pneumonia ?Patient was managed with Zosyn. Improving clinically -Patient's mother felt patient was ready for discharge subsequently requested for patient to be discharged home. Prescription was written for Augmentin for 7 more days 2. Hypokalemia ?Corrected per protocol 3. Hyponatremia ?Resolved with rehydration 4. Cerebral palsy ?With subsequent MRDD patient is post PEG as well as trach 5. Seizure disorder ?Patient is on Lamictal and Keppra as well as Banzel did continue 6. GERD ?Patient is on Pepcid 7. DVT prophylaxis -SC Lovenox Patient Problems: Active and Suspected Problems Sepsis (Acute) Hyponatremia (Acute) Aspiration pneumonia (Acute) Objective: GENERAL: Patient is noncommunicative HEENT: Atraumatic; EYES; Anicteric, Normal Conjunctiva NECK; trach collar in place RESPIRATORY: Diminished to auscultation CARDIOVASCULAR: Regular S1 S2, GI: soft, PEG tube in situ : No Renal angle tenderness; EXTREMITIES: No edema, no clubbing, MUSCULOSKELETAL: no muscle waisting NEURO: Patient is noncommunicative SKIN: No Rash - Physical Exam Vitals/I&O's: Vital Signs Temp Pulse Resp BP Pulse Ox 98.0 F 114 H 20 H 119/82 H 93 08/12/19 14:03 08/12/19 14:03 08/12/19 14:03 08/12/19 14:03 08/12/19 14:03 Oxygen Flow Rate (L/min) 6 Oxygen Delivery Method Trach Collar Weight: 45.6 kg Body Mass Index (BMI) 17.2 Intake and Output for Last 24 Hours 08/10/19 08/11/19 08/12/19 23:59 23:59 23:59 Intake Total 2870.21 / 2870.21 2980 / 2980 2533.25 / 2533.25 Balance 2870.21 / 2870.21 2980 / 2980 2533.25 / 2533.25 Microbiology Past 72 Hours 08/09/19 08:50 Sputum, Expectorated/Coughed Gram Stain - Final 08/09/19 08:50 Sputum, Expectorated/Coughed Respiratory Culture - Preliminary Pseudomonas aeroginosa Staphylococcus aureus Gram negative jason 08/09/19 09:40 Blood Culture (Wb) - Femoral Artery Blood Culture - Preliminary No growth in 48 hours. 08/09/19 09:40 Blood Culture (Wb) - Femoral Artery Blood Culture - Preliminary No growth in 48 hours. 08/09/19 09:00 Urine Catheter - Catheter Urine Culture - Final Klebsiella oxytoca 08/09/19 10:52 Mucosa - Nasopharyngeal Coronavirus COVID-19 PCR - Final Laboratory Results 08/11/19 14:15: Sodium 134 L, Potassium 5.4 H, Chloride 103, Carbon Dioxide 28.0, Anion Gap 3 L, BUN 4 L, Creatinine 0.20 L, Estim Creat Clear Calc 304.16, Est GFR (MDRD) Af Amer 564, Est GFR (MDRD) Non-Af 466, BUN/Creatinine Ratio 20.5 H, Glucose 96, Calcium 8.6 08/12/19 07:56: WBC 8.6, RBC 3.97 L, Hgb 12.4, Hct 35.9 L, MCV 90.4, MCH 31.2, MCHC 34.5, RDW Std Deviation 39.3, RDW Coeff of Mendez 11.9, Plt Count 270, MPV 8.4 08/12/19 07:56: Sodium 135 L, Potassium 2.8 L, Chloride 100, Carbon Dioxide 29.0, Anion Gap 6, BUN 3 L, Creatinine < 0.15 L, Estim Creat Clear Calc 405.57, Est GFR (MDRD) Af Amer 765, Est GFR (MDRD) Non-Af 631, BUN/Creatinine Ratio 20.0, Glucose 92, Calcium 8.1 L, Magnesium 1.4 L 08/12/19 14:08: Potassium 3.5 Current Medications Albuterol Sulfate (Ventolin Aerosols) 2.5 mg INHALATION Q4H PRN PRN Reason: SOB/Wheezing Last Admin: 08/12/19 11:18 Dose: 2.5 mg Documented by: Enoxaparin Sodium (Lovenox) 30 mg SC DAILY [facility] Last Admin: 08/12/19 09:12 Dose: 30 mg Documented by: Famotidine (Pepcid) 20 mg GT BID [facility] Last Admin: 08/12/19 09:10 Dose: 20 mg Documented by: Hydrochlorothiazide () 12.5 mg GT BID [facility] Last Admin: 08/12/19 09:11 Dose: 12.5 mg Documented by: Piperacillin Sod/Tazobactam (Sod 3.375 gm/ Sodium Chloride) 50 mls @ 12.5 mls/hr IV Q8 [facility] Last Infusion: 08/12/19 10:28 Dose: Infused Documented by: Sodium Chloride () 250 mls @ 15 mls/hr IV .[id number] PRN PRN Reason: Saline Flush Last Infusion: 08/12/19 10:28 Dose: 15 mls/hr Documented by: Sodium Chloride () 250 mls @ 15 mls/hr IV .[id number] PRN PRN Reason: Additional IVPB Infusion Sodium Chloride () 1,000 mls @ 60 mls/hr IV .[id number] [facility] Last Admin: 08/12/19 13:43 Dose: Not Given Documented by: Lactobacillus Acidophilus (Acidophilus) 1 tablet GT TID [facility] Last Admin: 08/12/19 13:15 Dose: 1 tablet Documented by: Lamotrigine (Lamictal) 300 mg GT QHS [facility] Last Admin: 08/11/19 22:30 Dose: 300 mg Documented by: Lamotrigine (Lamictal) 400 mg GT DAILY [facility] Last Admin: 08/12/19 09:11 Dose: 400 mg Documented by: Levetiracetam (Keppra Oral Solution) 1,000 mg GT BID [facility] Last Admin: 08/12/19 09:13 Dose: 1,000 mg Documented by: Loratadine (Claritin) 10 mg GT DAILY [facility] Last Admin: 08/12/19 09:10 Dose: 10 mg Documented by: Lorazepam (Ativan) 1 mg GT DAILY PRN PRN Reason: AGITATION Lorazepam (Ativan) 1 mg GT TID [facility] Last Admin: 08/12/19 13:25 Dose: 1 mg Documented by: Non-Formulary Medication (Nut.Tx.Impaired Digestive Fxn [Peptamen]) 75 ml GT 5X/DAY [facility]; Taper Stop: 05/10/22 09:59 Last Admin: 08/12/19 13:15 Dose: 75 ml Documented by: Ondansetron HCl (Zofran) 4 mg IV Q8H PRN PRN PRN Reason: NAUSEA/VOMITING Last Admin: 08/09/19 19:51 Dose: 4 mg Documented by: Phenytoin Sodium (Dilantin) 150 mg GT BID [facility] Last Admin: 08/12/19 09:10 Dose: 150 mg Documented by: [facility] Sodium [facility] () 10 - 40 ml IV UD PRN PRN Reason: SALINE FLUSH Last Admin: 08/10/19 10:09 Dose: 10 ml Documented by: Home Medications: Medications to take at Discharge Albuterol Aerosols [Ventolin Aerosols] 2.5 mg INHALATION TID 08/09/19 Cetirizine HCl 10 ml PO DAILY 08/09/19 Denosumab [Prolia] 60 mg SQ 08/09/19 Famotidine [Pepcid] 20 mg PO BID 08/09/19 Hydrochlorothiazide 2 tab JT BID 08/09/19 Lactobacillus Acidophilus [Acidophilus] 1 ea PO TID 08/09/19 Lamotrigine [Lamictal] 1.5 tab PO QHS 08/09/19 Lamotrigine [Lamictal] 400 mg PO DAILY 08/09/19 Levetiracetam 10 ml PO BID 08/09/19 Lorazepam [Ativan] 1 mg PO DAILY PRN 08/09/19 Lorazepam [Ativan] 1 mg PO TID 08/09/19 Multivitamin,Therapeutic [Therems] 1 ea PO DAILY 08/09/19 Nut.tx.impaired Digestive Fxn [Peptamen] 150 ml GT 5X/DAY 08/09/19 Phenytoin 6 ml PO BID 08/09/19 Rufinamide [Banzel] 2 tab PO 4X/DAY 08/09/19 Amox/Clav 400mg/5ml Susp [Augmentin Suspension 400mg/5ml] 800 mg PO BIDCM #140 ml 08/12/19 Potassium Chloride 15 ml PO BID #0 08/12/19 Following Prescrptions Were Given to Patient: Amox/Clav 400mg/5ml Susp [Augmentin Suspension 400mg/5ml] 800 mg PO BIDCM #140 ml Transmission Status: Received by JOON [facility] [facility] Primary Care Physician: [facility] Doctor,Out of [NON-STAFF] - Please follow up with your Primary Care Physician in: Follow-up with primary care physician for repeat BMP on 08/15/2019 Disposition: [facility] facility Minutes spent on discharge:: 35 Patient Condition:: Stable Medical Necessity - Tobacco Use Smoking Status: Never smoker Tobacco Use: Non-smoker Meaningful Use Info Meaningful Use Diagnoses (Choose all that apply): None applicable Inpatient E&M: 46971 Disch Hosp
[2019-08-12] MEDS: 0.9% Saline Lock 10 ML Syringe IV (14:46)
--- NOTE | 2019-08-12 15:00 | CPS ---
Patient was 86% on room air at rest. Patient unable to amulate. Put on 2 lpm and patient's sat. was 91%
--- NOTE | 2019-08-12 15:02 | CPS ---
86% at rest, unable to ambulate, put on 2 lpm and patient's sat. was 91%
--- NOTE | 2019-08-12 15:19 | NURSING ---
transport team arrived to PCU to transport pt home. this rn gave report to transport team including pt's freq need for suction.
== END 2019-08-12 16:45 | disposition home or self-care (01) | DRG 720 ==
LOC: ED 10:02 → PCU 14:53
PROVIDERS: Admitting Provider Hospitalist; Emergency Provider Emergency Medicine; Visit Provider Internal Medicine
DX: A41.9 Sepsis, unspecified organism (principal); J69.0 Pneumonitis due to inhalation of food and vomit; R09.02 Hypoxemia; E87.1 Hypo-osmolality and hyponatremia; E87.6 Hypokalemia; F84.2 Rett's syndrome; G80.9 Cerebral palsy, unspecified; K21.9 Gastro-esophageal reflux disease without esophagitis; G40.909 Epilepsy, unspecified, not intractable, without status epilepticus; F79 Unspecified intellectual disabilities; Z74.01 Bed confinement status; Z93.0 Tracheostomy status; Z79.899 Other long term (current) drug therapy; Z87.01 Personal history of pneumonia (recurrent); Z93.1 Gastrostomy status
CPT/HCPCS: 31720; 36415; 71045; 80048; 81001; 82436; 82570; 83605; 83735; 83930; 83935; 84132; 84133; 84300; 85025; 85027; 87040; 87070; 87077; 87086; 87088; 87184; 87186; 87205; 87635; 92526; 93005; 94640; 94667; 94668; 94762; 96361; 96365; 96366; 97802; 97803; 99251; 99285; G2023; J7030; J7050; A4216; G0463; J2405; J3490; U0002

== ENCOUNTER → 2020-05-27 04:44 | Outpatient (CLI) | payer MEDICAID, SELFPAY ==
[2019-08-11 11:42] VITALS: BMI 17.2
[2020-05-27 10:22] LABS: Basophil# 0.03 X10^3/uL; Basophil% 0.5 % (0-1); Eosinophil# 0.18 X10^3/uL; Eosinophils% 2.8 % (0-5); Hematocrit 38.6 % (37-47); Hemoglobin 13.2 g/dL (12.0-15.0); Mean Corp Hgb Conc 34.2 g/dL (32-36); Mean Corpuscular Volume 93.7 fL (81-99); Monocyte# 0.77 X10^3/uL; Monocyte% 11.8 % (0-10); NRBC Flagged by Analyzer 0 % (0-5); Neutrophil # 4.03 X10^3/uL (2.7-7.7); Neutrophil % 61.6 % (47-70); Platelet Count 282 K/mm3 (150-450); RBC Distribution Width CV 12.4 % (11.6-14.6); RBC Distribution Width SD 42.5 fl (35.1-43.9); Red Blood Count 4.12 M/mm3 (4.2-5.4); White Blood Count 6.5 K/mm3 (4.4-11.0)
[2020-05-27 11:01] LABS: ALB/GLOB Ratio 0.8 RATIO (0.9-2.4); AST(SGOT) 23 U/L (15-37); Alanine Aminotransfer ALT/SGPT 22 U/L (13-56); Albumin, Serum 3.1 g/dL (3.2-5.0); Alkaline Phosphatase 76 U/L (45-117); Anion Gap 7 (5-15); BUN 14 mg/dL (7-18); BUN/Creat Ratio 73.7 RATIO (10-20); Calcium,Total 8.8 mg/dL (8.5-10.1); Chloride 92 mmol/L (98-107); Creatinine, Serum 0.19 mg/dL (0.55-1.02); EST Glomerular Filtration Rate 477 mL/min (>60); Est Glom Filt Rate - Afr Amer 577 mL/min (>60); Glucose 91 mg/dL (74-106); Iron 68 ug/dL (50-170); Iron Binding Capacity,Total 394 ug/dL (250-450); Potassium 3.9 mmol/L (3.5-5.1); Prealbumin 27.5 mg/dL (20.0-40.0); Protein, Total 7.1 g/dL (6.4-8.2); Sodium Level 129 mmol/L (136-145)
[2020-05-27 12:49] LABS: Vitamin B12 985 pg/mL (211-911); Vitamin D,25 Hydroxy 64.5 ng/mL
== END ==
DX: Z91.89 Other specified personal risk factors, not elsewhere classified (principal); M81.0 Age-related osteoporosis without current pathological fracture
CPT/HCPCS: 36415; 80053; 82306; 82607; 83540; 83550; 84134; 85025

== ENCOUNTER → 2020-08-17 08:53 | Outpatient (CLI) | payer MEDICAID, SELFPAY ==
[2019-08-11 11:42] VITALS: BMI 17.2
[2020-08-17 13:34] LABS: Anion Gap 5 (5-15); BUN 16 mg/dL (7-18); BUN/Creat Ratio 98.8 RATIO (10-20); Calcium,Total 8.8 mg/dL (8.5-10.1); Chloride 97 mmol/L (98-107); Creatinine, Serum 0.16 mg/dL (0.55-1.02); EST Glomerular Filtration Rate 573 mL/min (>60); Est Glom Filt Rate - Afr Amer 693 mL/min (>60); Glucose 74 mg/dL (74-106); Potassium 3.8 mmol/L (3.5-5.1); Sodium Level 133 mmol/L (136-145); Thyroid Stim Hormone (TSH) 1.73 uIU/mL (0.358-3.74)
[2020-08-19 12:59] LABS: Vitamin D,25 Hydroxy 55.1 ng/mL
== END ==
DX: M81.0 Age-related osteoporosis without current pathological fracture (principal); E87.1 Hypo-osmolality and hyponatremia
CPT/HCPCS: 36415; 80048; 82306; 84443

== ENCOUNTER 2020-09-02 19:19 | Emergency (ER) | payer MEDICAID, SELFPAY ==
[2019-08-11 11:42] VITALS: BMI 17.2
[2020-09-02 19:20] VITALS: BP 152/81; PULSE 104; RESP 20; TEMP 36.3; O2SAT 95; BMI 17.3
--- NOTE | 2020-09-02 20:14 | EDS_ITS ---
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 she is basically nonverbal full care patient, she is developed a skin lesion to the buttock consisting of a shallow ulcer she sees physicians in [place] and they did not wish to take the patient all the way to [place] as she is a full care patient they understand how to manage her skin conditions and her other health conditions well been stable PFSH [facility] Home Medications Lactobacillus acidophilus 1 ea PO TID 08/09/19 [History Last Taken Unknown] albuterol sulfate 2.5 mg INHALATION TID 08/09/19 [History Last Taken Unknown] cetirizine 10 ml PO DAILY 08/09/19 [History Last Taken Unknown] denosumab 60 mg SQ 08/09/19 [History Last Taken Unknown] famotidine 20 mg PO BID 08/09/19 [History Last Taken Unknown] hydrochlorothiazide 2 tab JT BID 08/09/19 [History Last Taken Unknown] lamotrigine 1.5 tab PO QHS 08/09/19 [History Last Taken Unknown] lamotrigine 400 mg PO DAILY 08/09/19 [History Last Taken Unknown] levetiracetam 10 ml PO BID 08/09/19 [History Last Taken Unknown] lorazepam 1 mg PO DAILY PRN 08/09/19 [History Last Taken Unknown] lorazepam 1 mg PO TID 08/09/19 [History Last Taken Unknown] nut.tx.impaired digest fxn 150 ml GT 5X/DAY 08/09/19 [History Last Taken Unknown] phenytoin 6 ml PO BID 08/09/19 [History Last Taken Unknown] rufinamide 2 tab PO 4X/DAY 08/09/19 [History Last Taken Unknown] therapeutic multivitamin 1 ea PO DAILY 08/09/19 [History Last Taken Unknown] potassium chloride 15 ml PO BID #0 08/12/19 [Rx Last Taken Unknown] Allergy/AdvReac Type Severity Reaction Status Date / Time latex Allergy Rash Verified 09/02/20 19:20 hydromorphone [From Dilaudid] AdvReac Shortness Verified 09/02/20 19:20 of breath morphine AdvReac Shortness Verified 09/02/20 19:20 of breath Social History Smoking Status: Never smoker ROS ROS ED ROS Narrative History is unobtainable due to the patient's mental status per the mother the patient has no complaints they just wanted somebody to check the decubitus ulcer involving her buttock Review of Systems ROS Unobtainable: due to encephalopathy, due to endotracheal tube, due to mental condition and other EXAM Physical Exam Narrative Exam Narrative: The patient basically is unresponsive her eyes are open she has a short body habitus no other acute issues per the mother just the issue to the decubitus, to the buttock area there is a small circular area of decubitus ulcer that really is barely through the skin surface it does not involve the subcu there is no bony involvement, there is no drainage or foul order tenderness or discomfort 2 cm maximum diameter, we discussed wound care managed with the mother she needs some dressing supplies with which we have provided she is comfortable with discharge home Const Vital Signs: 09/02/20 19:20 Temperature 97.3 F L Temperature Source Temporal Pulse Rate 104 H Respiratory Rate 20 H Blood Pressure 152/81 H Blood Pressure Mean 104 Pulse Ox 95 Oxygen Delivery Method Room Air Positive well developed General Appearance ED: well developed HEENT Reports normocephalic Negative for trauma Eyes EOMs intact bilaterally Neck supple Chest Wall inspection of chest normal Resp normal respiratory effort Cardio regular rate GI non-tender and non-distended Back/Spine Back/Spine Narrative: unremarkable Extremity normal to inspection Neuro Neuro Narrative: Eyes open looking about at baseline Psych Psych Narrative: At baseline per mother Skin no rashes or lesions noted Skin Narrative: See the dictation above MDM MDM MDM Narrative Medical decision making narrative: Given all the above given the nature of this skin condition we provided wound care instructions wound care management supplies to the mother she will basically persist and manage her at home follow- up with her outpatient providers and return for change in symptoms as the lesion appears to be very superficial and the patient is otherwise doing well per the mother they believe that the potential diaper elastic rubbed up against this area causing the skin to be irritated superficially abraded Discharge Plan Triage Chief Complaint: Wound ED Provider: Parveen Vegas Dx/Rx/DC Orders Clinical Impression: Cerebral palsy Instructions: Pressure Ulcer, ED Skin Avulsion Prescriptions: No Action lamotrigine 200 MG tablet 400 mg PO DAILY RF: 0 lamotrigine 200 MG tablet 1.5 tab PO QHS RF: 0 albuterol sulfate 2.5 MG/3 ML solution for nebulization 2.5 mg inhalation TID RF: 0 therapeutic multivitamin 1 EACH tablet 1 ea PO DAILY RF: 0 phenytoin 125 MG/5 ML suspension 6 ml PO BID RF: 0 levetiracetam 100 MG/ML solution 10 ml PO BID RF: 0 rufinamide 400 MG tablet 2 tab PO 4X/DAY RF: 0 cetirizine 5 MG/5 ML solution 10 ml PO DAILY RF: 0 famotidine 20 MG tablet 20 mg PO BID RF: 0 hydrochlorothiazide 12.5 mg capsule 2 tab JT BID RF: 0 lorazepam 1 MG tablet 1 mg PO TID RF: 0 lorazepam 1 MG tablet 1 mg PO DAILY PRN (Reason: Agitation) RF: 0 Lactobacillus acidophilus 1 EACH capsule 1 ea PO TID RF: 0 denosumab 60 MG/ML syringe 60 mg SQ RF: 0 nut.tx.impaired digest fxn 250 ML liquid 150 ml GT 5X/DAY RF: 0 potassium chloride 20 MEQ/15 ML liquid 15 ml PO BID Qty: 0 RF: 0 Referrals: NAVI SKINNER [Other]
== END 2020-09-02 20:30 | disposition home or self-care (01) ==
LOC: ED 20:13
PROVIDERS: Emergency Provider Emergency Medicine
DX: L89.309 Pressure ulcer of unspecified buttock, unspecified stage (principal); G80.9 Cerebral palsy, unspecified; F84.2 Rett's syndrome
CPT/HCPCS: 99282

== ENCOUNTER → 2020-10-13 10:44 | Outpatient (CLI) | payer MEDICAID, SELFPAY ==
[2020-10-13 12:03] LABS: Erythrocyte Sedimentation Rate 49 mm/hr (0-30)
[2020-10-13 12:05] LABS: Absolute Lymphocyte Count 1.43 X10^3/uL (0.83-4.51); Absolute Neutrophil Count 5.7 X10^3/uL (2.0-7.7); Basophil# 0.04 X10^3/uL; Basophil% 0.5 % (0-1); Eosinophil# 0.18 X10^3/uL; Eosinophils% 2.2 % (0-5); Hematocrit 42.5 % (37-47); Hemoglobin 13.7 g/dL (12.0-15.0); Lymphocyte # 1.43 X10^3/ul (0.83-4.51); Lymphocyte % 17.2 % (19-41); Mean Corp Hgb Conc 32.2 g/dL (32-36); Mean Corpuscular Hgb 30.3 pg (27.0-32.0); Mean Platelet Vol. 8.3 fl (6.2-12.0); Monocyte# 0.96 X10^3/uL; Monocyte% 11.5 % (0-10); NRBC Flagged by Analyzer 0 % (0-5); Neutrophil # 5.65 X10^3/uL (2.7-7.7); Neutrophil % 67.9 % (47-70); Platelet Count 435 K/mm3 (150-450); RBC Distribution Width CV 12.6 % (11.6-14.6); RBC Distribution Width SD 43.4 fl (35.1-43.9); Red Blood Count 4.52 M/mm3 (4.2-5.4); White Blood Count 8.3 K/mm3 (4.4-11.0)
[2020-10-13 12:23] LABS: ALB/GLOB Ratio 0.6 RATIO (0.9-2.4); AST(SGOT) 46 U/L (15-37); Alanine Aminotransfer ALT/SGPT 35 U/L (13-56); Albumin, Serum 2.6 g/dL (3.2-5.0); Alkaline Phosphatase 82 U/L (45-117); Anion Gap 4 (5-15); BUN 16 mg/dL (7-18); CPK Total, Creatine Kinase 21 U/L (26-192); Calcium,Total 8.6 mg/dL (8.5-10.1); Chloride 102 mmol/L (98-107); Globulin 4.5 g/dL (2.2-4.2); Glucose 87 mg/dL (74-106); Potassium 3.6 mmol/L (3.5-5.1); Protein, Total 7.1 g/dL (6.4-8.2); Sodium Level 138 mmol/L (136-145)
[2020-10-13 12:34] LABS: BUN/Creat Ratio 106.7 RATIO (10-20); Creatinine, Serum < 0.15 mg/dL (0.55-1.02); EST Glomerular Filtration Rate 627 mL/min (>60); Est Glom Filt Rate - Afr Amer 760 mL/min (>60)
== END ==
DX: M86.9 Osteomyelitis, unspecified (principal)
CPT/HCPCS: 36415; 80053; 82550; 85025; 85652; 86140

== ENCOUNTER → 2020-10-20 08:34 | Outpatient (CLI) | payer MEDICAID, SELFPAY ==
[2020-10-20 10:56] LABS: ALB/GLOB Ratio 0.5 RATIO (0.9-2.4); AST(SGOT) 44 U/L (15-37); Alanine Aminotransfer ALT/SGPT 35 U/L (13-56); Albumin, Serum 2.6 g/dL (3.2-5.0); Alkaline Phosphatase 87 U/L (45-117); Anion Gap 4 (5-15); BUN 17 mg/dL (7-18); CPK Total, Creatine Kinase 35 U/L (26-192); Calcium,Total 8.6 mg/dL (8.5-10.1); Chloride 99 mmol/L (98-107); Creatinine, Serum < 0.15 mg/dL (0.55-1.02); EST Glomerular Filtration Rate 625 mL/min (>60); Est Glom Filt Rate - Afr Amer 756 mL/min (>60); Globulin 5.3 g/dL (2.2-4.2); Glucose 86 mg/dL (74-106); Potassium 3.9 mmol/L (3.5-5.1); Protein, Total 7.9 g/dL (6.4-8.2); Sodium Level 133 mmol/L (136-145)
[2020-10-20 11:00] LABS: Erythrocyte Sedimentation Rate 56 mm/hr (0-30)
[2020-10-20 11:13] LABS: Absolute Lymphocyte Count 1.42 X10^3/uL (0.83-4.51); Absolute Neutrophil Count 6.1 X10^3/uL (2.0-7.7); Basophil# 0.05 X10^3/uL; Basophil% 0.6 % (0-1); Eosinophil# 0.18 X10^3/uL; Hematocrit 41.8 % (37-47); Hemoglobin 13.5 g/dL (12.0-15.0); Lymphocyte # 1.42 X10^3/ul (0.83-4.51); Mean Corp Hgb Conc 32.3 g/dL (32-36); Mean Corpuscular Hgb 30.3 pg (27.0-32.0); Mean Corpuscular Volume 93.9 fL (81-99); Mean Platelet Vol. 8.2 fl (6.2-12.0); Monocyte# 1.08 X10^3/uL; Monocyte% 12.2 % (0-10); NRBC Flagged by Analyzer 0 % (0-5); Neutrophil # 6.09 X10^3/uL (2.7-7.7); Neutrophil % 68.5 % (47-70); Platelet Count 504 K/mm3 (150-450); RBC Distribution Width CV 12.8 % (11.6-14.6); RBC Distribution Width SD 43.8 fl (35.1-43.9); Red Blood Count 4.45 M/mm3 (4.2-5.4); White Blood Count 8.9 K/mm3 (4.4-11.0)
[2020-10-20 11:43] LABS: Color, Urine Yellow (Yellow); Glucose, Dipstick Normal (Normal); Ketone-Dipstick Negative (Negative); Leukocyte Esterase-Dipstick Negative /ul (Negative); Nitrite-Dipstick Negative (Negative); Occult Blood-Urine Negative /ul (Negative); Protein-Dipstick 15 mg/dl (Negative); Specific Gravity, Urine 1.015 (1.002-1.030); Urine Bilirubin Dipstick Negative (Negative); Urine Clarity Sl. Cloudy (Clear); Urine Urobilinogen Normal (Normal)
== END ==
DX: N39.0 Urinary tract infection, site not specified (principal); M86.9 Osteomyelitis, unspecified
CPT/HCPCS: 36415; 80053; 81002; 82550; 85025; 85652; 86140; 87086; 87088

== ENCOUNTER → 2020-10-27 09:02 | Outpatient (CLI) | payer MEDICAID, SELFPAY ==
[2020-10-27 11:19] LABS: Erythrocyte Sedimentation Rate 43 mm/hr (0-30)
[2020-10-27 11:29] LABS: Absolute Lymphocyte Count 0.93 X10^3/uL (0.83-4.51); Absolute Neutrophil Count 7.6 X10^3/uL (2.0-7.7); Basophil# 0.04 X10^3/uL; Basophil% 0.4 % (0-1); Eosinophil# 0.16 X10^3/uL; Eosinophils% 1.6 % (0-5); Hematocrit 40.3 % (37-47); Hemoglobin 13.2 g/dL (12.0-15.0); Lymphocyte # 0.93 X10^3/ul (0.83-4.51); Lymphocyte % 9.5 % (19-41); Mean Corp Hgb Conc 32.8 g/dL (32-36); Mean Corpuscular Hgb 30.9 pg (27.0-32.0); Mean Corpuscular Volume 94.4 fL (81-99); Mean Platelet Vol. 8.2 fl (6.2-12.0); Monocyte# 0.96 X10^3/uL; Monocyte% 9.8 % (0-10); NRBC Flagged by Analyzer 0 % (0-5); Neutrophil # 7.64 X10^3/uL (2.7-7.7); Neutrophil % 78.4 % (47-70); Platelet Count 393 K/mm3 (150-450); RBC Distribution Width CV 12.9 % (11.6-14.6); RBC Distribution Width SD 44.6 fl (35.1-43.9); Red Blood Count 4.27 M/mm3 (4.2-5.4); White Blood Count 9.8 K/mm3 (4.4-11.0)
[2020-10-27 11:46] LABS: ALB/GLOB Ratio 0.5 RATIO (0.9-2.4); AST(SGOT) 39 U/L (15-37); Alanine Aminotransfer ALT/SGPT 32 U/L (13-56); Albumin, Serum 2.7 g/dL (3.2-5.0); Alkaline Phosphatase 86 U/L (45-117); Anion Gap 3 (5-15); BUN 17 mg/dL (7-18); BUN/Creat Ratio 110.4 RATIO (10-20); CPK Total, Creatine Kinase 33 U/L (26-192); Calcium,Total 8.7 mg/dL (8.5-10.1); Chloride 97 mmol/L (98-107); Creatinine, Serum 0.15 mg/dL (0.55-1.02); EST Glomerular Filtration Rate 606 mL/min (>60); Est Glom Filt Rate - Afr Amer 734 mL/min (>60); Globulin 5.2 g/dL (2.2-4.2); Glucose 82 mg/dL (74-106); Potassium 3.6 mmol/L (3.5-5.1); Protein, Total 7.9 g/dL (6.4-8.2); Sodium Level 135 mmol/L (136-145)
== END ==
DX: M86.9 Osteomyelitis, unspecified (principal)
CPT/HCPCS: 36415; 80053; 82550; 85025; 85652; 86140

== ENCOUNTER → 2020-11-03 07:06 | Outpatient (CLI) | payer MEDICAID, SELFPAY ==
[2020-11-03 10:19] LABS: Erythrocyte Sedimentation Rate 54 mm/hr (0-30)
[2020-11-03 10:20] LABS: Absolute Lymphocyte Count 1.34 X10^3/uL (0.83-4.51); Absolute Neutrophil Count 3.7 X10^3/uL (2.0-7.7); Basophil# 0.03 X10^3/uL; Basophil% 0.5 % (0-1); Eosinophil# 0.29 X10^3/uL; Eosinophils% 4.7 % (0-5); Hematocrit 41.6 % (37-47); Hemoglobin 13.6 g/dL (12.0-15.0); Lymphocyte # 1.34 X10^3/ul (0.83-4.51); Lymphocyte % 21.7 % (19-41); Mean Corp Hgb Conc 32.7 g/dL (32-36); Mean Corpuscular Hgb 30.6 pg (27.0-32.0); Mean Corpuscular Volume 93.7 fL (81-99); Mean Platelet Vol. 8.2 fl (6.2-12.0); Monocyte# 0.75 X10^3/uL; Monocyte% 12.1 % (0-10); NRBC Flagged by Analyzer 0 % (0-5); Neutrophil # 3.74 X10^3/uL (2.7-7.7); Neutrophil % 60.5 % (47-70); Platelet Count 328 K/mm3 (150-450); RBC Distribution Width CV 12.5 % (11.6-14.6); Red Blood Count 4.44 M/mm3 (4.2-5.4); White Blood Count 6.2 K/mm3 (4.4-11.0)
[2020-11-03 10:56] LABS: ALB/GLOB Ratio 0.6 RATIO (0.9-2.4); AST(SGOT) 55 U/L (15-37); Alanine Aminotransfer ALT/SGPT 43 U/L (13-56); Albumin, Serum 2.9 g/dL (3.2-5.0); Alkaline Phosphatase 87 U/L (45-117); Anion Gap 6 (5-15); BUN 18 mg/dL (7-18); BUN/Creat Ratio 94.2 RATIO (10-20); CPK Total, Creatine Kinase 41 U/L (26-192); Chloride 96 mmol/L (98-107); Creatinine, Serum 0.19 mg/dL (0.55-1.02); EST Glomerular Filtration Rate 473 mL/min (>60); Est Glom Filt Rate - Afr Amer 572 mL/min (>60); Glucose 96 mg/dL (74-106); Potassium 3.5 mmol/L (3.5-5.1); Protein, Total 7.9 g/dL (6.4-8.2); Sodium Level 134 mmol/L (136-145)
== END ==
DX: M86.9 Osteomyelitis, unspecified (principal)
CPT/HCPCS: 36415; 80053; 82550; 85025; 85652; 86140

== ENCOUNTER → 2020-11-11 04:33 | Outpatient (CLI) | payer MEDICAID, SELFPAY ==
[2020-11-11 11:59] LABS: Erythrocyte Sedimentation Rate 55 mm/hr (0-30)
[2020-11-11 12:03] LABS: Absolute Lymphocyte Count 1.13 X10^3/uL (0.83-4.51); Basophil# 0.04 X10^3/uL; Basophil% 0.5 % (0-1); Eosinophils% 2.4 % (0-5); Hematocrit 41.4 % (37-47); Hemoglobin 13.4 g/dL (12.0-15.0); Lymphocyte # 1.13 X10^3/ul (0.83-4.51); Lymphocyte % 13.3 % (19-41); Mean Corp Hgb Conc 32.4 g/dL (32-36); Mean Corpuscular Hgb 30.5 pg (27.0-32.0); Mean Corpuscular Volume 94.1 fL (81-99); Mean Platelet Vol. 8.3 fl (6.2-12.0); Monocyte# 1.02 X10^3/uL; NRBC Flagged by Analyzer 0 % (0-5); Neutrophil # 6.03 X10^3/uL (2.7-7.7); Platelet Count 379 K/mm3 (150-450); RBC Distribution Width SD 44.9 fl (35.1-43.9); White Blood Count 8.5 K/mm3 (4.4-11.0)
[2020-11-11 12:09] LABS: ALB/GLOB Ratio 0.5 RATIO (0.9-2.4); AST(SGOT) 43 U/L (15-37); Alanine Aminotransfer ALT/SGPT 41 U/L (13-56); Alkaline Phosphatase 93 U/L (45-117); Anion Gap 5 (5-15); BUN 19 mg/dL (7-18); BUN/Creat Ratio 96.9 RATIO (10-20); CPK Total, Creatine Kinase 28 U/L (26-192); Calcium,Total 9.3 mg/dL (8.5-10.1); Chloride 95 mmol/L (98-107); EST Glomerular Filtration Rate 459 mL/min (>60); Est Glom Filt Rate - Afr Amer 555 mL/min (>60); Globulin 5.5 g/dL (2.2-4.2); Glucose 72 mg/dL (74-106); Potassium 3.6 mmol/L (3.5-5.1); Protein, Total 8.5 g/dL (6.4-8.2); Sodium Level 133 mmol/L (136-145)
== END ==
DX: M86.9 Osteomyelitis, unspecified (principal)
CPT/HCPCS: 36415; 80053; 82550; 85025; 85652; 86140

== ENCOUNTER → 2020-11-17 04:22 | Outpatient (CLI) | payer MEDICAID, SELFPAY ==
[2020-11-17 11:31] LABS: Erythrocyte Sedimentation Rate 47 mm/hr (0-30)
[2020-11-17 11:33] LABS: Absolute Lymphocyte Count 1.15 X10^3/uL (0.83-4.51); Absolute Neutrophil Count 5.6 X10^3/uL (2.0-7.7); Basophil# 0.04 X10^3/uL; Basophil% 0.5 % (0-1); Eosinophil# 0.17 X10^3/uL; Eosinophils% 2.1 % (0-5); Hemoglobin 13.4 g/dL (12.0-15.0); Lymphocyte # 1.15 X10^3/ul (0.83-4.51); Lymphocyte % 14.1 % (19-41); Mean Corp Hgb Conc 32.7 g/dL (32-36); Mean Corpuscular Hgb 30.9 pg (27.0-32.0); Mean Corpuscular Volume 94.7 fL (81-99); Mean Platelet Vol. 8.1 fl (6.2-12.0); Monocyte# 1.13 X10^3/uL; Monocyte% 13.9 % (0-10); NRBC Flagged by Analyzer 0 % (0-5); Neutrophil # 5.61 X10^3/uL (2.7-7.7); Neutrophil % 68.8 % (47-70); Platelet Count 427 K/mm3 (150-450); RBC Distribution Width CV 12.8 % (11.6-14.6); RBC Distribution Width SD 44.9 fl (35.1-43.9); Red Blood Count 4.33 M/mm3 (4.2-5.4); White Blood Count 8.2 K/mm3 (4.4-11.0)
[2020-11-17 11:54] LABS: ALB/GLOB Ratio 0.5 RATIO (0.9-2.4); AST(SGOT) 42 U/L (15-37); Alanine Aminotransfer ALT/SGPT 36 U/L (13-56); Albumin, Serum 2.8 g/dL (3.2-5.0); Alkaline Phosphatase 87 U/L (45-117); Anion Gap 4 (5-15); BUN 19 mg/dL (7-18); CPK Total, Creatine Kinase 30 U/L (26-192); Calcium,Total 9.2 mg/dL (8.5-10.1); Chloride 98 mmol/L (98-107); Creatinine, Serum 0.15 mg/dL (0.55-1.02); EST Glomerular Filtration Rate 615 mL/min (>60); Est Glom Filt Rate - Afr Amer 744 mL/min (>60); Globulin 5.3 g/dL (2.2-4.2); Glucose 75 mg/dL (74-106); Potassium 3.5 mmol/L (3.5-5.1); Protein, Total 8.1 g/dL (6.4-8.2); Sodium Level 134 mmol/L (136-145)
== END ==
DX: M86.9 Osteomyelitis, unspecified (principal)
CPT/HCPCS: 36415; 80053; 82550; 85025; 85652; 86140

== ENCOUNTER → 2020-11-22 17:00 | Outpatient (CLI) | payer MEDICAID, SELFPAY ==
[2020-11-23 13:09] LABS: Color, Urine Yellow (Yellow); Glucose, Dipstick Normal (Normal); Ketone-Dipstick Negative (Negative); Leukocyte Esterase-Dipstick 100 /ul (Negative); Nitrite-Dipstick Negative (Negative); Occult Blood-Urine Negative /ul (Negative); Protein-Dipstick 15 mg/dl (Negative); Specific Gravity, Urine 1.015 (1.002-1.030); Urine Bilirubin Dipstick Negative (Negative); Urine Clarity Clear (Clear); Urine Urobilinogen Normal (Normal)
== END ==
DX: N39.0 Urinary tract infection, site not specified (principal); R19.7 Diarrhea, unspecified
CPT/HCPCS: 81002; 87077; 87086; 87088; 87186; 87493

== ENCOUNTER → 2021-01-04 10:50 | Outpatient (CLI) | payer MEDICAID, SELFPAY | DX: N39.0 Urinary tract infection, site not specified (principal) | CPT/HCPCS: 87077; 87086; 87088; 87186 ==

== ENCOUNTER → 2021-01-19 09:23 | Outpatient (CLI) | payer MEDICAID, SELFPAY ==
[2021-01-19 12:26] LABS: Vitamin D,25 Hydroxy 59.6 ng/mL
[2021-01-19 13:16] LABS: PTHIN 25.9 pg/mL (18.4-80.1)
[2021-01-19 13:22] LABS: Anion Gap 8 (5-15); BUN 14 mg/dL (7-18); Calcium,Total 9.2 mg/dL (8.5-10.1); Chloride 98 mmol/L (98-107); Creatinine, Serum 0.16 mg/dL (0.55-1.02); EST Glomerular Filtration Rate 575 mL/min (>60); Est Glom Filt Rate - Afr Amer 696 mL/min (>60); Glucose 86 mg/dL (74-106); Magnesium 1.9 mg/dL (1.6-2.6); Phosphorus 3.4 mg/dL (2.5-4.9); Potassium 3.6 mmol/L (3.5-5.1); Sodium Level 134 mmol/L (136-145); Thyroid Stim Hormone (TSH) 1.57 uIU/mL (0.358-3.74)
[2021-01-19 14:18] LABS: 24HR. Urine Creatinine 0.39 g/24 HR (0.70-1.90); 24Hr.Lytes Total Volume 3000 mL; Creatinine, Urine < 13.00 mg/dL (NO RANGE EST.); Sodium 24 HR UR 135 mmol/24h (40-220); Urine Chloride 38 mmol/L (Not Establ.); Urine Chloride / 24 Hours 114 mmol/24h (110-250); Urine Sodium 45 mmol/L (Not Establ.)
== END ==
DX: E83.51 Hypocalcemia (principal); M81.8 Other osteoporosis without current pathological fracture; F84.2 Rett's syndrome; G82.50 Quadriplegia, unspecified; Z87.81 Personal history of (healed) traumatic fracture; Z87.898 Personal history of other specified conditions; R82.991 Hypocitraturia
CPT/HCPCS: 36415; 80048; 81050; 82306; 82330; 82436; 82570; 83735; 83970; 84100; 84133; 84300; 84443

== ENCOUNTER → 2021-01-21 08:59 | Outpatient (CLI) | payer MEDICAID, SELFPAY ==
[2021-01-21 11:05] LABS: 24HR UR TOTAL VOLUME 3000 ml; Calcium Urine pH Range 1; Urine Calcium (Random) 10.6 (Not Estab.)
[2021-01-25 16:08] LABS: Citric Acid, Ur 5 mg/L (Undefined)
[2021-01-25 16:39] LABS: Citric Acid, 24Ur 15 mg/24 hr (320-1240)
== END ==
DX: M81.8 Other osteoporosis without current pathological fracture (principal); E83.51 Hypocalcemia; R82.991 Hypocitraturia; F84.2 Rett's syndrome; Z87.81 Personal history of (healed) traumatic fracture; G82.50 Quadriplegia, unspecified; Z87.898 Personal history of other specified conditions
CPT/HCPCS: 81050; 82340; 82507

== ENCOUNTER 2021-03-30 04:17 | Outpatient (CLI) | payer MEDICAID, SELFPAY ==
[2021-03-30 09:55] LABS: Phenytoin (Dilantin) Level 20.4 mL (10.0-20.0)
[2021-04-02 08:36] LABS: Lamotrigine (Lamictal) Level 4.1 ug/mL (2.0-20.0)
== END 2021-03-30 23:59 | disposition home or self-care (01) ==
PROVIDERS: Visit Provider Psychiatry & Neurology Neurology
DX: G40.309 Generalized idiopathic epilepsy and epileptic syndromes, not intractable, without status epilepticus (principal)
CPT/HCPCS: 36415; 80177; 80185; 82542

== ENCOUNTER 2021-05-13 04:25 | Outpatient (CLI) | payer MEDICAID, SELFPAY ==
[2021-05-13 09:56] LABS: Anion Gap 6 (5-15); BUN 14 mg/dL (7-18); BUN/Creat Ratio 54.1 RATIO (10-20); Calcium,Total 9.1 mg/dL (8.5-10.1); Chloride 102 mmol/L (98-107); Creatinine, Serum 0.26 mg/dL (0.55-1.02); EST Glomerular Filtration Rate 331 mL/min (>60); Est Glom Filt Rate - Afr Amer 401 mL/min (>60); Glucose 96 mg/dL (74-106); Potassium 3.5 mmol/L (3.5-5.1); Sodium Level 138 mmol/L (136-145)
[2021-05-16 18:02] LABS: Lamotrigine (Lamictal) Level 4.9 ug/mL (2.0-20.0)
== END 2021-05-13 23:59 | disposition home or self-care (01) ==
PROVIDERS: Visit Provider Internal Medicine Endocrinology, Diabetes & Metabolism
DX: F84.2 Rett's syndrome (principal)
CPT/HCPCS: 36415; 80048; 82330; 82542

== ENCOUNTER → 2021-09-19 | Outpatient (CLI) | payer MEDICAID, SELFPAY ==
[2021-09-19 11:09] LABS: Anion Gap 8 (5-15); BUN 28 mg/dL (7-18); BUN/Creat Ratio 106.9 RATIO (10-20); Calcium,Total 9.4 mg/dL (8.5-10.1); Chloride 101 mmol/L (98-107); Creatinine, Serum 0.26 mg/dL (0.55-1.02); EST Glomerular Filtration Rate 326 mL/min (>60); Est Glom Filt Rate - Afr Amer 395 mL/min (>60); Glucose 99 mg/dL (74-106); Potassium 3.4 mmol/L (3.5-5.1); Sodium Level 136 mmol/L (136-145)
== END | disposition home or self-care (01) ==
PROVIDERS: Referring Provider Internal Medicine Endocrinology, Diabetes & Metabolism
DX: F84.2 Rett's syndrome (principal); E83.51 Hypocalcemia
CPT/HCPCS: 36415; 80048; 82330; 82542

== ENCOUNTER → 2021-10-03 08:07 | Outpatient (CLI) | payer MEDICAID, SELFPAY ==
[2021-10-05 16:14] LABS: Lamotrigine (Lamictal) Level 2.6 ug/mL (2.0-20.0)
== END ==
DX: F84.2 Rett's syndrome (principal)
CPT/HCPCS: 82330; 82542

== ENCOUNTER → 2022-10-26 | Outpatient (CLI) | payer MEDICAID, SELFPAY ==
[2022-10-26 11:49] LABS: Absolute Lymphocyte Count 1.83 X10^3/uL (0.83-4.51); Absolute Neutrophil Count 3.8 X10^3/uL (2.0-7.7); Basophil# 0.03 X10^3/uL; Basophil% 0.4 % (0-1); Eosinophil# 0.21 X10^3/uL; Eosinophils% 3.1 % (0-5); Hematocrit 45.4 % (37-47); Hemoglobin 15.3 g/dL (12.0-15.0); Lymphocyte # 1.83 X10^3/ul (0.83-4.51); Lymphocyte % 26.9 % (19-41); Mean Corp Hgb Conc 33.7 g/dL (32-36); Mean Corpuscular Hgb 32.3 pg (27.0-32.0); Mean Platelet Vol. 8.2 fl (6.2-12.0); Monocyte# 0.91 X10^3/uL; Monocyte% 13.4 % (0-10); NRBC Flagged by Analyzer 0 % (0-5); Neutrophil # 3.79 X10^3/uL (2.7-7.7); Neutrophil % 55.8 % (47-70); POSITIVE MORPHOLOGY YES; Platelet Count 265 K/mm3 (150-450); RBC Distribution Width CV 12.2 % (11.6-14.6); RBC Distribution Width SD 43.3 fl (35.1-43.9); Red Blood Count 4.73 M/mm3 (4.2-5.4); White Blood Count 6.8 K/mm3 (4.4-11.0)
[2022-10-26 11:50] LABS: Differential Indicated SCAN CRITERIA MET
[2022-10-26 12:23] LABS: Atypical Lymphocyte 1+ %
[2022-10-26 12:31] LABS: ALB/GLOB Ratio 0.6 RATIO (0.9-2.4); AST(SGOT) 17 U/L (15-37); Alanine Aminotransfer ALT/SGPT 28 U/L (13-56); Albumin, Serum 2.9 g/dL (3.2-5.0); Alkaline Phosphatase 87 U/L (45-117); Anion Gap 5 (5-15); BUN 35 mg/dL (7-18); BUN/Creat Ratio 120.3 RATIO (10-20); Calcium,Total 9.1 mg/dL (8.5-10.1); Chloride 103 mmol/L (98-107); Creatinine, Serum 0.29 mg/dL (0.55-1.02); EST Glomerular Filtration Rate 287 mL/min (>60); Est Glom Filt Rate - Afr Amer 347 mL/min (>60); Globulin 4.9 g/dL (2.2-4.2); Glucose 80 mg/dL (74-106); Potassium 3.6 mmol/L (3.5-5.1); Protein, Total 7.8 g/dL (6.4-8.2); Sodium Level 140 mmol/L (136-145); Vitamin D,25 Hydroxy 57.2 ng/mL
== END | disposition home or self-care (01) ==
LOC: LAB 09:58
PROVIDERS: Referring Provider Internal Medicine Endocrinology, Diabetes & Metabolism; Visit Provider Internal Medicine Endocrinology, Diabetes & Metabolism
DX: M81.0 Age-related osteoporosis without current pathological fracture (principal); G40.319 Generalized idiopathic epilepsy and epileptic syndromes, intractable, without status epilepticus; E55.9 Vitamin D deficiency, unspecified; F84.2 Rett's syndrome
CPT/HCPCS: 36415; 80053; 82306; 85025

== ENCOUNTER → 2023-04-19 | Outpatient (CLI) | payer MEDICAID, SELFPAY ==
--- OUTSIDE RECORDS SUMMARY | 2023-04-19 04:37 | XMS RPT_ITS | CCD ---
Author Name Unknown Address [address] [place] [address] Organization [facility] Care Team Providers Care Pony Worker Name Role Phone KELSEYSANTOS DALY Unavailable Unavailable IM[facility] Referring Unavailable [facility] Primary Care Unavailable Parish Leonard Primary Care Provider Misty Porter Primary Care Provider Misty Porter MD Primary Care Provider Misty Porter MD Primary Care Provider Teagarden DO, Lolis N Primary Care Provider Misty Porter Primary Care Provider Teagarden DO, Lolis N Primary Care Provider Teagarden DO, Lolis N Primary Care Provider [phone] Teagarden DO, Lolis N Primary Care Provider Chris Goff RPh Unavailable Neri Ontiveros APRN, CNP Unavailable Zahira Cedeno MD Unavailable Misty Porter Primary Care Provider Teagarden DO, Lolis N Primary Care Provider [phone] Chris Goff RPh Unavailable Neri Ontiveros APRN, CNP Unavailable Zahira Cedeno MD Unavailable Misty Porter MD Primary Care Provider NERI MITCHELL Attending Unavailable TEAGARDEN, LOLIS Primary Care Unavailable YOGI JONESIC Attending Unavailable TEAGARDEN, OLLIS Primary Care Unavailable TEAGARDEN, LOLIS Attending Unavailable TEAGARDEN, LOLIS Primary Care Unavailable SANTOS BELLO Attending Unavailable TEAGARDEN, LOLIS Primary Care Unavailable NERI MITCHELL Attending Unavailable TEAGARDEN, LOLIS Primary Care Unavailable SANTOS BELLO Attending Unavailable TEAGARDEN, LOLIS Primary Care Unavailable Zahira Cedeno MD Unavailable Allergies Allergy Classification Reported Allergen(s) Allergy Type Date of Onset Reaction(s) Facility Adhesive Tape (6 sources) Adhesive Tape Substance Allergy 11-28-19 12 Hives [facility] Doxycycline (6 sources) Doxycycline Drug Allergy 09-14-19 18 Nausea And Vomiting [facility] Work Phone: Latex (6 sources) Latex Substance Allergy 04-14-19 10 Hives, Rash [facility] Work Phone: Nitrofurantoin (6 sources) Nitrofurantoin Drug Allergy 09-14-19 18 Nausea And Vomiting [facility] Work Phone: Opioid Agonists (12 sources) HYDROmorphone Drug Allergy 11-28-19 12 Other (See Comments) [facility] Work Phone: (9 sources) Adhesive Tape; Translations: [ADHESIVE TAPE (ROSINS)] Propensity to adverse reactions (disorder) 11-28-19 12 Hives [facility] Rep[facility] (20 sources) doxycycline; Translations: [DOXYCYCLINE] Drug Allergy 09-14-19 18 Nausea And Vomiting, Vomiting [facility] (9 sources) HYDROmorphone; Translations: [HYDROMORPHONE (BULK)] Drug Allergy 11-28-19 12 Other: See Comments [facility] (20 sources) Latex; Translations: [LATEX] Propensity to adverse reactions to drug (disorder) 04-14-19 10 Hives, Rash [facility] (20 sources) morphine; Translations: [MORPHINE] Drug Allergy 11-28-19 12 Other (See Comments), Shortness of Breath [facility] (9 sources) NITROFURANTOIN MONOHYD/M-CRYST; Translations: [NITROFURANTOIN MONOHYD/M-CRYST] Propensity to adverse reactions to drug (disorder) 09-14-19 18 Vomiting [facility] (9 sources) OPIOIDS - MORPHINE ANALOGUES; Translations: [OPIOIDS - MORPHINE ANALOGUES] Propensity to adverse reactions to drug (disorder) 01-25-20 12 Other: See Comments [facility] (20 sources) Adhesive Tape Propensity to adverse reactions to drug 11-28-19 12 [facility] [place] [place] ([facility] sources) HYDROmorphone Drug Allergy 11-28-19 12 Other (See Comments) [place] (20 sources) Nitrofurantoin Drug Allergy 09-14-19 18 Nausea And Vomiting [place], [place] (20 sources) Wound Dressing Adhesive Propensity to adverse reactions to drug 11-28-19 12 Rash, [facility] [place] [place] Medications Current Medications Medication Drug Class(es) Dates Sig (Normalized) Sig (Original) acetaminophen 500 mg oral tablet (20 sources) Start: 03-21-2023 acetaminophen (Tylenol) 500 MG tablet TAKE 1 AND 1/2 TABLETS VIA GTUBE EVERY 4 HOURS NEEDED FOR PAIN. DO NOT EXCEED 4 DOSES 120 tablet 5 03/21/2023 Active Completed/Discontinued Medications Medication Drug Class(es) Dates Sig (Normalized) Sig (Original) calcium chloride 0.0014 meq/ml / potassium chloride 0.004 meq/ml / sodium chloride 0.103 meq/ml / sodium lactate 0.028 meq/ml injectable solution (1 source) Start: 10-04-2020 End: 10-05-2020 lactated ringers infusion daptomycin (CUBICIN) infusion (10 sources) Start: 10-06-2020 End: 11-17-2020 take 300 mg intravenously every twenty-four hours daptomycin (CUBICIN) infusion Infuse 300 mg intravenously every 24 hours Compound per protocol. 0 10/06/2020 11/17/2020 Problems Active Problems Problem Classification Problem Date Documented Da te Episodic/Chronic Allergic reactions (1 source) Inflammatory dermatosis; Translations: [Dermatitis, unspecified] 12-22-2022 Episodic Asthma (20 sources) Moderate persistent asthma; Translations: [Moderate persistent asthma, uncomplicated] Onset: 0 11-12-2019 Chronic Developmental disorders (20 sources) Profound intellectual disability; Translations: [Profound intellectual disabilities] Onset: 3 11-12-2019 Chronic Disorders usually diagnosed in infancy childhood or adolescence (20 sources) Rett's disorder; 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] Onset: 2 11-12-2019 Chronic Epilepsy; convulsions (20 sources) Refractory generalized convulsive epilepsy; Translations: [Generalized idiopathic epilepsy and epileptic syndromes, intractable, without status epilepticus] Onset: 8 11-12-2019 Chronic Esophageal disorders (20 sources) Gastroesophageal reflux disease; Translations: [Gastro-esophageal reflux disease without esophagitis] Onset: 0 04-19-2022 Chronic Genitourinary symptoms and ill-defined conditions (20 sources) Urinary incontinence; Translations: [Unspecified urinary incontinence] Onset: 9 Resolved: 1 11-12-2019 Chronic Infective arthritis and osteomyelitis (except that caused by tuberculosis or sexually transmitted disease) (20 sources) Chronic osteomyelitis; Translations: [Other chronic osteomyelitis, unspecified site] Onset: 1 02-14-2021 Chronic Medical examination/evaluation (1 source) Encounter for general adult medical examination without abnormal findings; Translations: [Encounter for general adult medical examination without abnormal findings] Onset: 8 Episodic Nutritional deficiencies (4 sources) Vitamin D deficiency; Translations: [Vitamin D deficiency, unspecified] Onset: 3 Chronic Osteoporosis (20 sources) Osteoporosis; Translations: [Age-related osteoporosis without current pathological fracture] Onset: 2 11-12-2019 Chronic Other acquired deformities (20 sources) Contracture of multiple joints; Translations: [Contracture, unspecified joint] Onset: 0 11-12-2019 Chronic Other acquired deformities (20 sources) Scoliosis deformity of spine; Translations: [Scoliosis, unspecified] Onset: 0 11-12-2019 Chronic Other gastrointestinal disorders (2 sources) H/O: gastrostomy; Translations: [Gastrostomy status] Onset: 8 11-12-2019 Chronic Other gastrointestinal disorders (20 sources) Dependence on enabling machine or device; Translations: [Gastrostomy status] Onset: 8 02-14-2021 Chronic Other gastrointestinal disorders (5 sources) Slow transit constipation; Translations: [Slow transit constipation] Onset: 3 Episodic Other inflammatory condition of skin (1 source) Psoriasis; Translations: [Other psoriasis] Onset: 3 11-12-2019 Chronic Other inflammatory condition of skin (1 source) Seborrheic dermatitis of scalp; Translations: [Seborrhea capitis] Episodic Other upper respiratory disease (20 sources) Tracheostomy present; Translations: [Tracheostomy status] Onset: 7 11-12-2019 Chronic Other upper respiratory disease (20 sources) Seasonal allergic rhinitis; Translations: [Other seasonal allergic rhinitis] Onset: 8 11-12-2019 Chronic Other upper respiratory disease (2 sources) Allergic rhinitis; Translations: [Allergic rhinitis, unspecified] Chronic Paralysis (20 sources) Spastic tetraplegia; Translations: [Quadriplegia, unspecified] Onset: 0 11-12-2019 Chronic Residual codes; unclassified (20 sources) Obstructive sleep apnea syndrome; Translations: [Obstructive sleep apnea (adult) (pediatric)] Onset: 0 11-12-2019 Chronic Residual codes; unclassified (20 sources) Past history of procedure; Translations: [Presence of other specified functional implants] Onset: 8 11-12-2019 Chronic Residual codes; unclassified (8 sources) Dependence on wheelchair; Translations: [Dependence on wheelchair] Onset: 8 Resolved: 1 09-06-2017 Chronic Residual codes; unclassified (1 source) Other specified personal risk factors, not elsewhere classified; Translations: [Other specified personal history presenting hazards to health] 12-25-2022 Episodic Residual codes; unclassified (2 sources) At risk for imbalanced nutrition, less than body requirements; Translations: [At high risk for malnutrition] Onset: 0 11-12-2019 Unclassified (2 sources) For cardiopulmonary resuscitation; Translations: [Full cardiopulmonary resuscitation status] Onset: 0 11-12-2019 Unclassified (20 sources) Reflux; Translations: [Reflux] Onset: 0 11-12-2019 Past or Other Problems Problem Classification Problem Date Documented Da te Episodic/Chronic Aspiration pneumonitis; food/vomitus (20 sources) Aspiration pneumonia; Translations: [Pneumonitis due to inhalation of food and vomit] Onset: 11-12-2019 Resolved: 04-23-2020 11-12-2019 Episodic Blindness and vision defects (20 sources) Astigmatism; Translations: [Unspecified astigmatism, unspecified eye] Onset: 07-30-2020 07-30-2020 Episodic Calculus of urinary tract (20 sources) Kidney stone; Translations: [History of calculus of kidney] Onset: 02-04-2008 Resolved: 04-19-2022 11-12-2019 Episodic Chronic ulcer of skin (20 sources) Pressure ulcer of buttock; Translations: [Pressure ulcer of right buttock, unstageable] Onset: 10-05-2020 Resolved: 04-19-2022 Chronic Complication of device; implant or graft (20 sources) Urinary tract infectious disease; Translations: [Infection and inflammatory reaction due to indwelling urethral catheter, initial encounter] Onset: 12-01-2020 Resolved: 04-19-2022 12-01-2020 Episodic Diseases of white blood cells (12 sources) Leukocytosis; Translations: [Elevated white blood cell count, unspecified] Onset: 02-14-2021 Resolved: 02-18-2021 02-18-2021 Chronic Esophageal disorders (2 sources) Reflux; Translations: [Reflux] Onset: 11-12-2019 11-12-2019 Episodic Fracture of neck of femur (hip) (1 source) Fracture of neck of femur; Translations: [Femoral neck fracture] Onset: 01-21-2017 11-12-2019 Episodic Genitourinary symptoms and ill-defined conditions (7 sources) Abnormal urinalysis; Translations: [Unspecified abnormal findings in urine] Onset: 09-05-2018 09-05-2018 Episodic Heart valve disorders (20 sources) Heart murmur; Translations: [Cardiac murmur, unspecified] Onset: 07-15-2012 Resolved: 12-01-2020 11-12-2019 Episodic Noninfectious gastroenteritis (2 sources) Noninfective gastroenteritis and colitis, unspecified; Translations: [Noninfective gastroenteritis and colitis, unspecified] Onset: 10-11-2022 Episodic Other aftercare (20 sources) Drug therapy finding; Translations: [Other residential (current) drug therapy] Onset: 07-26-2022 Episodic Other aftercare (2 sources) Other residential (current) drug therapy; Translations: [Other residential (current) drug therapy] Onset: 07-26-2022 Episodic Other diseases of bladder and urethra (20 sources) Neurogenic bladder; Translations: [Neuromuscular dysfunction of bladder, unspecified] Onset: 09-05-2018 Resolved: 04-07-2023 11-12-2019 Chronic Other gastrointestinal disorders (20 sources) Gastrostomy present; Translations: [Gastrostomy status] Onset: 08-28-2017 Resolved: 04-23-2020 11-12-2019 Chronic Other gastrointestinal disorders (20 sources) Oropharyngeal dysphagia; Translations: [Dysphagia, oropharyngeal phase] Onset: 11-12-2019 11-12-2019 Episodic Other gastrointestinal disorders (20 sources) Diarrhea; Translations: [Diarrhea, unspecified] Onset: 07-02-2012 Resolved: 04-19-2022 Episodic Other gastrointestinal disorders (1 source) Slow transit constipation; Translations: [Slow transit constipation] Onset: 10-11-2022 Episodic Other inflammatory condition of skin (9 sources) Cradle cap; Translations: [Seborrhea capitis] Onset: 11-11-2012 04-23-2020 Episodic Other inflammatory condition of skin (20 sources) Seborrheic dermatitis; Translations: [Seborrheic dermatitis, unspecified] Onset: 11-11-2012 12-01-2020 Episodic Other injuries and conditions due to external causes (20 sources) H/O: fracture; Translations: [Personal history of (healed) traumatic fracture] Onset: 01-21-2017 Resolved: 04-19-2022 04-23-2020 Episodic Other injuries and conditions due to external causes (7 sources) Fracture of bone; Translations: [Unspecified multiple injuries, initial encounter] Onset: 01-25-2012 01-25-2012 Episodic Other nutritional; endocrine; and metabolic disorders (20 sources) Developmental delay; Translations: [Unspecified lack of expected normal physiological development in childhood] Onset: 07-02-2012 02-14-2021 Episodic Residual codes; unclassified (20 sources) Wheelchair bound; Translations: [Dependence on wheelchair] Onset: 09-06-2017 Resolved: 04-23-2020 04-23-2020 Chronic Residual codes; unclassified (2 sources) Past history of procedure; Translations: [Status post VNS (vagus nerve stimulator) placement] Onset: 08-24-2017 11-12-2019 Episodic Residual codes; unclassified (2 sources) Wheelchair bound; Translations: [Wheelchair bound] Onset: 09-06-2017 Resolved: 04-23-2020 11-12-2019 Episodic Residual codes; unclassified (20 sources) At risk for imbalanced nutrition, less than body requirements; Translations: [Other specified personal risk factors, not elsewhere classified] Onset: 11-12-2019 11-12-2019 Episodic Residual codes; unclassified (20 sources) For cardiopulmonary resuscitation; Translations: [Other specified health status] Onset: 11-12-2019 11-12-2019 Episodic Residual codes; unclassified (20 sources) Urinary catheter in situ; Translations: [Presence of other specified devices] Onset: 12-01-2020 Resolved: 04-19-2022 12-01-2020 Episodic Septicemia (except in labor) (20 sources) Sepsis; Translations: [Sepsis, unspecified organism] Onset: 10-04-2020 Resolved: 02-18-2021 Episodic Skin and subcutaneous tissue infections (20 sources) Cellulitis; Translations: [Cellulitis, unspecified] Onset: 02-14-2021 Resolved: 04-19-2022 02-14-2021 Episodic Results Test Name Value Interpretation Reference Range Facil ity Vital Signs Date Time Vital Sign Value Performing Clinician Carissa millan 07-26-2022 14:21-0400 Body height 162.6 cm Deanalka Jones [employer] - [employer] Work Phone: [employer] 07-26-2022 14:21-0400 Body mass index (BMI) [Ratio] 25.58 kg/m2 Dean [employer] Work Phone: [employer] 07-26-2022 14:21-0400 Body weight 67.59 kg Dean [employer] - [employer] Work Phone: [employer] 10-08-2020 17:31-0400 Diastolic blood pressure 84 mm[Hg] Bharat Baez MD Work Phone: [employer] Phone: 10-08-2020 17:31-0400 Heart rate 115 /min Bharat Baez MD Work Phone: [facility] Work Phone: 10-08-2020 17:31-0400 Respiratory rate 20 /min Bharat Baez MD Work Phone: [facility] Work Phone: 10-08-2020 17:31-0400 SaO2% (BldA) [Mass fraction] 94 % Bharat Baez MD Work Phone: [facility] Work Phone: 10-08-2020 17:31-0400 Systolic blood pressure 118 mm[Hg] Bharat Baez MD Work Phone: [facility] Work Phone: 10-08-2020 15:28-0400 Body temperature 98.1 [degF] Bharat Baez MD Work Phone: [facility] Work Phone: 10-06-2020 09:01-0400 Body temperature 97.7 [degF] DELORIS Oliva MD Work Phone: [facility] Work Phone: 10-06-2020 09:01-0400 Diastolic blood pressure 63 mm[Hg] DELORIS Oliva MD Work Phone: [facility] Work Phone: 10-06-2020 09:01-0400 Heart rate 90 /min DELORIS Oliva MD Work Phone: [facility] Work Phone: 10-06-2020 09:01-0400 Respiratory rate 15 /min DELORIS Oliva MD Work Phone: [facility] Work Phone: 10-06-2020 09:01-0400 SaO2% (BldA) [Mass fraction] 94 % DELORIS Oliva MD Work Phone: [facility] Work Phone: 10-06-2020 09:01-0400 Systolic blood pressure 99 mm[Hg] DELORIS Oliva MD Work Phone: [facility] Work Phone: 10-05-2020 11:39-0400 Body height 162.6 cm DELORIS Oliva MD Work Phone: [facility] Work Phone: 10-05-2020 06:04-0400 Body mass index (BMI) [Ratio] 18.23 kg/m2 DELORIS Oliva MD Work Phone: [facility] Work Phone: 10-05-2020 06:04-0400 Body weight 48.17 kg DELORIS Oliva MD Work Phone: [facility] Work Phone: Encounters Encounter Date Encounter Type Care Provider Facility Start: 04-12-2023 Refill Deanalka Jones [employer] - [employer] Work Phone: [facility] Procedures Date Procedure Procedure Detail Performing Clinician Start: 08-10-2022 Follow-up visit Follow-up SANTOS BELLO Start: 07-05-2021 Cul prsmptv pthgnc organism scrn w/colony estimj Edelmira Lopez [employer] - [employer] Work Phone: Start: 10-06-2020 End: 10-06-2020 Assay of magnesium Janice Herrera [employer] - [employer] Work Phone: Start: 10-06-2020 BASIC METABOLIC PANEL W/ REFLEX TO MG FOR LOW K Janice Herrera [employer] - [employer] Work Phone: Start: 10-05-2020 Drug screen quantitative vancomycin Samy Maloney MD Work Phone: Start: 10-05-2020 Cul prsmptv pthgnc organism scrn w/colony estimj Moody Lopez MD Work Phone: Start: 10-05-2020 Blood count complete auto&auto difrntl wbc Samy Maloney MD Work Phone: Start: 10-05-2020 RBC morphology finding Nom (Bld) Samy Maloney MD Work Phone: Start: 10-04-2020 CULTURE, BLOOD 1 Samy Maloney MD Work Phone: Start: 10-04-2020 Basic metabolic panel calcium total Bree May [employer] - [employer] Work Phone: Start: 08-26-2007 H/O: gastrostomy Gastrostomy status Misty Porter MD Work Phone: H/O: gastrostomy Gastrostomy sta tus ([facility]) Lolis Tito Crandall DO Work Phone: Plan of Treatment Date Care Activity Detail Author Start: 2057 Pneumococcal 0-64 ye ars Vaccine (2 of 2 - PPSV23) Pneumococcal 0-64 years Vaccine (2 of 2 - PPSV23) [facility] Start: 2052 RSV Immunization age d 60 or older (1 - 1-dose 60+ series) RSV Immunization aged 60 or older (1 - 1-dose 60+ series) [facility] Start: 2042 Zoster Vaccines (1 of 2) Zoster Vacc anastacia (1 of 2) [facility] Start: 11-25-2029 Screening for malign ant neoplasm of cervix Pap smear [facility] Immunizations Immunization Date Immunization Notes Care Provider Fa [facility] 12-20-2015 influenza, injectabl e, quadrivalent, preservative free Negrita Pennington [employer] Work Phone: [facility] 12-20-2015 influenza virus vacc ine, unspecified formulation Licha Mullen RN [facility] 12-22-2013 influenza, seasonal, injectable Negrita Pennington [employer] Work Phone: [facility] 01-15-2013 influenza virus vacc ine, whole virus Negrita Pennington [employer] Work Phone: [facility] 12-26-2011 influenza, seasonal, injectable, preservative free Negrita Pennington TU[employer] TE[employer] Work Phone: [facility] 12-23-2011 influenza, injectabl e, quadrivalent, preservative free Negrita Pennington TUBE TE[employer] Work Phone: [facility] 02-20-2011 influenza virus vacc ine, whole virus Negrita Pennington TUBE TE[employer] Work Phone: [facility] 02-07-2010 influenza, seasonal, injectable Negrita Pennington [employer] TE[employer] Work Phone: [facility] 01-31-2010 meningococcal polysaccharide (groups A, C, Y and W-135) diphtheria toxoid conjugate vaccine (MCV4P) [facility] [place] 01-31-2010 TD(adult) unspecifie d formulation [place], [place] 01-31-2010 tetanus and diphther ia toxoids, adsorbed, preservative free, for adult use (2 Lf of tetanus toxoid and 2 Lf of diphtheria toxoid) [facility] [place] 01-18-2010 influenza, seasonal, injectable Negrita Pennington TU[employer] Work Phone: [facility] 01-25-2009 novel influenza-H1N1 -09, preservative-free, injectable Negrita Pennington TU[employer] Work Phone: [facility] 01-25-2009 pneumococcal polysaccharide vaccine, 23 valent [facility] [place] 01-18-2009 influenza, seasonal, injectable Negrita Pennington [employer] Work Phone: [facility] 02-03-2008 influenza, seasonal, injectable Negrita Pennington [employer] Work Phone: [facility] 01-29-2006 influenza, seasonal, injectable Negrita Pennington [employer] Work Phone: [facility] 02-06-2005 influenza virus vacc ine, whole virus Negrita Pennington TU[employer] TE[employer] Work Phone: [facility] 02-04-2004 influenza, seasonal, injectable Negrita Pennington [employer] Work Phone: [facility] 01-12-2003 influenza, seasonal, injectable Negrita Pennington TU[employer] Work Phone: [facility] 01-10-2002 influenza, seasonal, injectable Negrita Pennington [employer] Work Phone: [facility] 01-10-2002 pneumococcal polysaccharide vaccine, 23 valent [facility] [place] 10-30-1997 measles, mumps and rubella virus vaccine [facility] [place] 07-28-1997 diphtheria, tetanus toxoids and acellular pertussis vaccine [facility] [place] 07-28-1997 diphtheria, tetanus toxoids and acellular pertussis vaccine, unspecified formulation Negrita Pennington [employer] Work Phone: [facility] 07-28-1997 poliovirus vaccine, inactivated [facility] [place] 03-05-1995 diphtheria, tetanus toxoids and acellular pertussis vaccine [facility] [place] 03-05-1995 diphtheria, tetanus toxoids and acellular pertussis vaccine, unspecified formulation Negrita Pennington TU[employer] Work Phone: [facility] 10-19-1993 haemophilus influenz ae type b vaccine, PRP-T conjugate [facility] [place] 10-19-1993 measles, mumps and rubella virus vaccine [facility] [place] 10-19-1993 poliovirus vaccine, inactivated [facility] [place] 01-20-1993 diphtheria, tetanus toxoids and acellular pertussis vaccine [facility] [place] 01-20-1993 diphtheria, tetanus toxoids and acellular pertussis vaccine, unspecified formulation Negrita Pennington TU[employer] Work Phone: [facility] 01-20-1993 haemophilus influenz ae type b conjugate and Hepatitis B vaccine [facility] [place] 1992 diphtheria, tetanus toxoids and acellular pertussis vaccine [facility] [place] 1992 diphtheria, tetanus toxoids and acellular pertussis vaccine, unspecified formulation Negrita Pennington TU[employer] TE[employer] Work Phone: [facility] 1992 haemophilus influenz ae type b vaccine, PRP-T conjugate [facility] [place] 1992 poliovirus vaccine, inactivated [facility] [facility] [place] [facility] diphtheria, tetanus toxoids and acellular pertussis vaccine [place], [place] 1992 diphtheria, tetanus toxoids and acellular pertussis vaccine, unspecified formulation Negrita Morris TUBE TESTER.WOVEN BLIND LOOM TENDER Work Phone: [facility] 1990 haemophilus influenz ae type b conjugate and Hepatitis B vaccine [place], [place] 1992 poliovirus vaccine, inactivated [place], [place] 1992 hepatitis B vaccine, pediatric or pediatric/adolescent dosage Negrita Morris TUBE TESTER.WOVEN BLIND LOOM TENDER Work Phone: [facility] Payers Date Payer Category Payer Medicaid [id number] 2018 Unknown DENTAL [facility] DENTAL [id number] 2018-Present [phone] [address] [place] [address] Dental [id number] 2014 Medicaid [id number] 2011 Medicaid [id number] 2011 Medicaid [id number] 1992 Unknown [id number] Social History Date Type Detail Facility Tobacco smoking stat [facility] Unknown if ever smoked [place], [place] Start: 1990 Sex Assigned At Not on file [place], [place] Start: 07-02-2012 End: 07-21-2020 Tobacco smoking status NEIS Never smoker [facility] Start: 07-02-2012 End: 07-21-2020 Tobacco use and exposure Never used [facility] Start: 10-06-2020 End: 04-07-2023 Alcohol intake Lifetime non-drinker (finding) [facility] Work Phone: Start: 10-04-2020 History SDOH Alcohol Frequency 1 [facility] Work Phone: Start: 08-06-2021 End: 10-11-2022 Exposure to SARS-CoV-2 (event) Not sure [facility] Start: 03-09-2020 Alcohol intake 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 (finding) [facility] Start: 1990 Sex Assigned At Female [facility] Start: 07-16-2022 End: 08-10-2022 Exposure to SARS-CoV-2 (event) Unable to assess [facility] History of tobacco use Passive smoker [facility] Work Phone: Start: 04-12-2022 End: 07-26-2022 History of Social function [facility] Start: 04-12-2022 End: 07-26-2022 Tobacco use panel [facility] Start: 01-25-2022 Gender identity Identifies as female gender (finding) [facility] National Score (1-100), lower number is lower risk 67 [facility] Medical Equipment Procedure Code Equipment Code Equipment Origin al Text Equipment Identifier Dates 1 each by Does n ot apply route daily [id number] Start: 04-22-2021 1 EACH BY DOES N OT APPLY ROUTE DAILY [id number] Start: 02-23-2022 End: 03-17-2023 1 EACH BY DOES N OT APPLY ROUTE DAILY [id number] Start: 03-01-2023 End: 02-27-2024 Clinical Notes 08-24-2017 to 03-02-2023 Telephone Encounter - Cristino Salazar APRN.CNP - 03/02/2023 11:03 AM ESTTelephone Encounter - Britta Fischer - 03/01/2023 3:35 PM ESTTelephone Encounter - Ny Aragon MA - 03/01/2023 3:23 PM EST Note Date & Type Note Facility 03-02-2023 Miscellaneous Notes The following approved medication requests have been transmitted electronically. Requested Prescriptions Signed Prescriptions Disp Refills lamoTRIgine (LAMICTAL) 200 mg tablet 315 tablet 1 Sig: TAKE 2 TABLETS by G-tube EVERY MORNING and TAKE 1 AND 1/2 TABLETS EVERY EVENING Authorizing Provider: CRISTINO SALAZAR APRN.CNP Prescription Refill: Requested by: pharmacy Please E-Scribe Caller Contact Number: Pharmacy Name: [facility] Number: [phone] Generic/ brand: 30 or 90 day supply requested: 90 Last appointment: 03/16/21 Next Appointment: none; sent to schedulers Patient of Dr. Phipps documented in this encounter [facility] 03-01-2023 Telephone encounter Note Next appt 09/05/2023. [facility] 03-01-2023 Miscellaneous Notes Next appt 09/05/2023. documented in this encounter [facility] 02-21-2023 History of Presen t illness Narrative . ENDOCRINOLOGY [address] [place] [address] Dept: [phone] Dept Visit type: Established patient Reason for Visit: Osteoporosis Patient was identified and seen today via Telehealth by agreement and consent. I used the following Telehealth technology: Audio and video capabilities. Patient location: Patient Location: Home. This patient encounter is appropriate and reasonable under the circumstances: too sick to leave home . The patient has been advised of the potential risks and limitations of this mode of treatment (including but not limited to the absence of in-person examination) and has agreed to be treated in a remote fashion in spite of them. Any and all of the patient's/patient's family's questions on this issue have been answered and I have made no promises or guarantees to the patient. The patient has also been advised to contact this office for worsening conditions or problems, and seek emergency medical treatment and/or call 911 if the patient deems either necessary. The patient stated that they are currently in the [facility]. If the patient is a minor, permission has been obtained by the parent or guardian for the patient to receive medical care at this visit. Chief complaint osteoporosis Assessment and Plan 1. Osteoporosis without current pathological fracture, unspecified osteoporosis type - Basic metabolic panel - Vitamin D Deficiency Screening (Vit D 25) 2. Vitamin D deficiency Follow up in about 6 months (around 08/22/2023). Discussed with patient and mother -osteoporosis treatment -osteoporosis diagnosis Will want to stop forteo in late 04/18 and start reclast in 05/19 -will need to get it at home if possible- very difficult for pt to move out of her home Check bmp in 04/18 and d level- will place order for late 04/18 Subjective HPI Follow-up appointment for osteoporosis Still taking forteo Has been on close to 2 years Has had no issues with it Had vitamin d level done Previously was on infusion therapy of pamidronate Had been on oral bisphosphonates but had Forteo for 2 years Has been unable to get dexa scans bc debility and immobility- previous scans demonstrated severe osteoporosis Could not get arm scan on continued basis Had renal function 3 mos ago Does have nephrolithiasis had therapy Taking vit d 2000 units daily Review of Systems Constitutional: Negative for fatigue. HENT: Negative for hearing loss, trouble swallowing and voice change. Respiratory: Negative for shortness of breath and wheezing. Cardiovascular: Negative for chest pain and palpitations. Gastrointestinal: Negative for nausea and vomiting. Endocrine: Negative for cold intolerance and heat intolerance. Genitourinary: Negative for dysuria and hematuria. Skin: Negative for rash. Neurological: Positive for weakness. Negative for headaches. Psychiatric/Behavioral: Negative for sleep disturbance. Allergies Allergen Reactions Hydromorphone Other reaction(s): Other (See Comments) Can take very small doses. Usually is given Tylenol #3. Doxycycline Nausea And Vomiting Latex Hives and Rash Morphine Other reaction(s): Other (See Comments) Resiptory Issues. VEry sensitive to small doses Nitrofurantoin Nausea And Vomiting Pedi-Pre Tape [place] [Wound Dressing Adhesive] Hives and Rash Outpatient Medications Prior to Visit Medication Sig Dispense Refill acetaminophen (Tylenol Children's) 160 MG/5ML suspension Take 22.5 mL (720 mg) by mouth every 6 hours as needed for mild pain (1-3), moderate pain (4-6) or fever. No more than 4 doses in a 24 hour period. 118 mL 11 Acetaminophen Extra Strength 500 MG tablet TAKE 1 AND 1/2 TABLETS VIA GTUBE EVERY 4 HOURS NEEDED FOR PAIN. DO NOT EXCEED 4 DOSES 120 tablet 5 albuterol (2.5 MG/3ML) 0.083% nebulizer solution USE 1 VIAL VIA NEBULIZER DIRECTED EVERY 4 HOURS NEEDED 120 mL 5 Banzel 400 MG tablet Take 2 tablets (800 mg) by mouth in the morning and 2 tablets (800 mg) at noon and 2 tablets (800 mg) in the evening and 2 tablets (800 mg) before bedtime. 240 tablet 5 betamethasone valerate (Valisone) 0.1 % lotion apply 5 milliliters to affected area 2 TIMES A WEEK, WHEN NEEDED FOR RASH cetirizine (ZyrTEC) 1 MG/ML syrup 10 mL (10 mg) by Per G Tube route daily. 300 mL 5 collagenase (Santyl) 250 UNIT/GM ointment APPLY OINTMENT TOPICALLY TO WOUND DIRECTED Control Gel Formula Dressing (DuoDERM CGF Border) misc Apply to open wound and change every 7 days. Size: 10 x 10 cm D-Neal Pediatric 10 MCG/ML liquid TAKE 5 ML BY MOUTH (1 TEASPOONFUL) BY MOUTH EVERY DAY 5 mLs by Per G Tube route daily 150 mL 11 famotidine (Pepcid) 40 MG/5ML suspension USE DIRECTED 2 TIMES DAILY 2.5 mLs by Per G Tube route 2 times daily 150 mL 11 fluocinonide (Lidex) 0.05 % external solution APPLY TOPICALLY THIN LAYER TO THE AFFECTED AREA(S) TO SCALP AND SKIN EVERY OTHER DAY NEEDED 120 mL 5 ibuprofen 100 MG/5ML suspension TAKE 10 ML [2 TEASPOONFUL] BY MOUTH EVERY 6 HOURS NEEDED FOR PAIN OR FOR FEVER insulin pen needle 31G x 6 mm misc 1 EACH BY DOES NOT APPLY ROUTE DAILY 100 each 3 ketoconazole (NIZOral) 2 % cream Apply topically daily to affected areas on face 60 g 5 ketoconazole (NIZOral) 2 % shampoo Apply topically. Lactobacillus (Acidophilus) tablet 1 capsule by Per G Tube route in the morning and 1 capsule at noon and 1 capsule before bedtime. 270 tablet 3 lamoTRIgine (LaMICtal) 200 MG tablet Takes 2 tabs in the AM and 1.5 tabs in the PM levETIRAcetam (Keppra) 100 MG/ML solution 10 mL (1,000 mg) by Per G Tube route 2 times daily. 1800 mL 3 lidocaine-prilocaine (Emla) 2.5-2.5 % cream Apply topically as needed for Pain (prior to blood draw) 30 g 5 loperamide (Imodium) 2 MG capsule TAKE 1 CAPSULE BY MOUTH 3 TIMES DAILY NEEDED 90 capsule 1 LORazepam (Ativan) 1 MG tablet Take 1 mg by mouth as needed for seizures. LORazepam (Ativan) 1 MG tablet 1 tablet (1 mg) by Per G Tube route 3 times daily. Do not start before December 06, 2022. 90 tablet 5 Midazolam 5 MG/0.1ML solution Inhale 5 mg as needed. Multiple Vitamins-Minerals (multivitamin with iron-minerals) liquid TAKE 15 ML BY MOUTH (1 TABLESPOONFUL) BY MOUTH EVERY DAY 450 mL 11 mupirocin (Bactroban) 2 % ointment APPLY TOPICALLY THIN LAYER TO THE AFFECTED AREA(S) TO TO TO RASH 3 TIMES DAILY NEEDED 22 g 5 Nutritional Supplements (Nutritional Supplement Plus) liquid PEPTAMIN VHP 4 cans per day nystatin (Mycostatin) cream Apply topically 2 times daily. 60 g 5 Oral Electrolytes (Pediatric Electrolyte) solution 30 mL. oral electrolytes replacement (Pedialyte) solution 200 mL. phenytoin (Dilantin) 125 MG/5ML suspension 6 mL (150 mg) by Per G Tube route 2 times daily. 360 mL 0 polyethylene glycol (Miralax) 17 GM/SCOOP powder GIVE 17gram PER gtube 2 TIMES DAILY 1020 g 5 pyridoxine (B-6) 100 MG tablet CRUSHED] 1 tablet AND put THROUGH THE tube ONCE daily 30 tablet 11 Senna (Senokot) 8.8 MG/5ML syrup 5 mLs by Per G Tube route 2 times daily 236 mL 5 sodium chloride 0.9 % injection Normal saline bullets for trach cleaning - lifetime refills sodium chloride 0.9 % nebulizer solution use 3 mLs by nebulization as needed for Wheezing (about 60% of 1 vial. Discard any remaining from the vial) 600 mL 5 sodium hypochlorite (Dakin's, HALF-Strength,) external solution Irrigate with 473 mL as directed. sodium phosphate (Fleets) 7-19 GM/118ML enema enema place 1 enema RECTALLY 2 TIMES DAILY NEEDED FOR CONSTIPATION teriparatide (Forteo) injection Inject 20 mcg under the skin. teriparatide (Forteo) injection INJECT 0.08ML UNDE THE SKIN DAILY 2.4 mL 3 No facility-administered medications prior to visit. 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 Scoliosis Seizure (HCC) Urinary tract infection associated with indwelling urethral catheter ([facility]) 12/01/2020 Social History Tobacco Use Smoking status: Never Smokeless tobacco: Never Substance Use Topics Alcohol use: Never Past Surgical History: Procedure Laterality Date GASTROSTOMY TUBE PLACEMENT SPINAL FIXATION SURGERY W/ IMPLANT TRACHEOSTOMY VAGUS NERVE STIMULATOR INSERTION Family History Problem Relation Name Age of Onset Colon cancer Neg Hx Ulcerative colitis Neg Hx Celiac disease Neg Hx Stomach cancer Neg Hx Seizures Neg Hx Inflammatory bowel disease Neg Hx Objective There were no vitals taken for this visit. Physical Exam Today's visit was a telehealth visit occurring by phone; therefore physical examination could not be completed. A physical examination will be completed at the time of the patient's next in person office visit. Data Reviewed and Summarized Labs: THYROID STIMULATING HORMONE Date Value Ref Range Status 08/17/2020 1.73 uIU/mL Final Comment: [facility] Auto WBC Date Value Ref Range Status 02/17/2021 13.5 (H) 3.6 - 10.7 10*3/uL Final Hemoglobin Date Value Ref Range Status 02/17/2021 12.2 11.7 - 16.0 g/dL Final 02/16/2021 11.0 (L) 11.7 - 16.0 g/dL Final 02/15/2021 9.8 (L) 11.7 - 16.0 g/dL Final 02/14/2021 11.5 (L) 11.7 - 16.0 g/dL Final 02/13/2021 13.4 11.7 - 16.0 g/dL Final 10/06/2020 14.5 11.7 - 16.0 g/dL Final 10/05/2020 13.1 11.7 - 16.0 g/dL Final 10/04/2020 15.0 11.7 - 16.0 g/dL Final 05/27/2020 13.2 12.0 - 16.0 g/dL Final [facility] MEAN CORPUSCULAR VOLUME Date Value Ref Range Status 02/17/2021 88.8 79.0 - 98.0 fL Final SODIUM Date Value Ref Range Status 10/26/2022 140 135 - 145 mmol/L Final POTASSIUM Date Value Ref Range Status 10/26/2022 3.6 3.5 - 5.1 mmol/L Final CHLORIDE Date Value Ref Range Status 10/26/2022 103 98 - 107 mmol/L Final CARBON DIOXIDE Date Value Ref Range Status 10/26/2022 32 (A) 22 - 30 mmol/L Final UREA NITROGEN Date Value Ref Range Status 10/26/2022 35 (A) 7 - 17 mg/dL Final CREATININE Date Value Ref Range Status 10/26/2022 0.29 (A) 0.52 - 1.04 mg/dL Final 09/19/2021 0.26 Final 02/17/2021 <0.15 (L) 0.52 - 1.25 mg/dL Final 02/16/2021 <0.15 (L) 0.52 - 1.25 mg/dL Final 02/15/2021 <0.15 (L) 0.52 - 1.25 mg/dL Final 02/14/2021 <0.15 (L) 0.52 - 1.25 mg/dL Final 02/13/2021 <0.15 (L) 0.52 - 1.25 mg/dL Final 01/20/2021 0.16 Final 10/06/2020 0.20 (L) 0.52 - 1.25 mg/dL Final 10/05/2020 <0.15 (L) 0.52 - 1.25 mg/dL Final 10/04/2020 <0.15 (L) 0.52 - 1.25 mg/dL Final 08/17/2020 0.16 Final 05/27/2020 0.19 Final GLUCOSE Date Value Ref Range Status 10/26/2022 80 70 - 100 mg/dL Final CALCIUM Date Value Ref Range Status 10/26/2022 9.1 8.4 - 10.4 mg/dL Final MAGNESIUM Date Value Ref Range Status 02/14/2021 1.7 1.6 - 2.3 mg/dL Final AST (SGOT) Date Value Ref Range Status 10/26/2022 17 15 - 46 U/L Final ALT Date Value Ref Range Status 10/26/2022 28 0 - 34 U/L Final TOTAL PROTEIN Date Value Ref Range Status 10/26/2022 7.8 6.3 - 8.2 g/dL Final BILIRUBIN, TOTAL Date Value Ref Range Status 10/26/2022 0.2 0.2 - 1.3 mg/dL Final ALKALINE PHOSPHATASE Date Value Ref Range Status 10/26/2022 87 38 - 126 U/L Final [facility] VITAMIN D 25-HYDROXY Date Value Ref Range Status 01/20/2021 59.6 Final Imaging/Testing: On this date, 02/21/2023 I have spent 35 minutes reviewing previous notes, test results and face to face with the patient discussing the diagnosis and importance of compliance with the treatment plan as well as documenting on the day of the visit. Santos Bello MD documented in this encounter [facility] 01-31-2023 Telephone encounter Note Letter created and attached to new order. Please call Mom to see if wound concerns are improved. [facility] 01-31-2023 Miscellaneous Notes Letter created and attached to new order. Please call Mom to see if wound concerns are improved. SW had received a message from pts new [facility]: Elizabeth Paula on 01/25/23. A justification for the incontinence supplies would be needed in order for a request to be submitted through waiver. SW reached back out to mom for clairity on the number of times that pt needs to be changed. Mom changes her daughter every 3 hrs which includes both the diaper and the booster pad. Mom had received about 311 diapers/pads in the past-this allowed her to get through the month without any shortages. SW received a message from [facility] re: whether or not [facility] is a waiver provider. SW reached out to [facility] and it does not appear that they are a waiver provider. SW will reach back out to [facility]. Total time of phone call: 11-15 minutes Spoke with Karen. Reports she called [facility] and was told they could not give her advice unless she was referred as a new patient (due to length of time since last visit) New pressure relieving mattress has been in process for 3 years per Karen- [facility] reports she is working as fast as she can on it. Karen is applying Desitin with fungal cream to area. Will send photo of wound (Karen states areas are staple sized in length- they look bigger in the picture. .mdc Spoke with pts mom to gather additional information re: incontinence supplies. Mom is stating that she is not receiving enough supplies through the month and is having to buy additional diapers and pads. SW reached out to [facility]-sales support representative is stating that pt is receiving the maximum that insurance will allow. [facility] does not make any exceptions based on medical need. Pts next shipment is due around Feb 02. Pt is currently receiving 96 pad, 90 briefs, 2 boxes of gloves and 150 chux. A new order will be needed at the end of February. SW left a message for pts [facility]: Paulina Velasco [phone] to determine if there are resources available through board. Total time of phone call: 6-10 minutes Agree with advice given. Called and spoke with Karen. Area is on Eveline's back directly over a jason. 2-3 weeks duration. Approximately 1 inch in length. Reddened Not able to palpate any fluid beneath. No exudate or drainage. Area is not open. More friction-related. Karen feels area is irritated from turning (hand placement with turns) Recommended that Karen call [facility]'s [facility] Care (as she has had extensive treatment from them in the past) for advisement. She is comfortable doing this. She agrees to let me know what their recommendation is. Karen reports she has a new supplier for [employer] diapers. Asks that Jennyfer call her related to concerns with quantity of diapers being supplied. Will forward request. Total time of phone call: <5 minutes Please call to get more information. S: Patient's mom spoke with [facility] nurse regarding medication request B: Onset of symptoms/concern 2-3 weeks A: Per patient's mother, patient had a jaosn placed in her back since 2003. Patient is getting a new mattress, currently sleeping on an air mattress. Patient takes collagen. Patient is bedridden, has had only 1 bed sore. Patient has a red spot where the jason is located. Mother and care givers have tried multiple things: billingsley skin, gauze, turn and reposition frequently, anti fungal cream with desitin, bag balm, eucerin cream. Mother states the area looks like it wants to open up, which it isn't. Afebrile. Mother is seeking advice and a medication to prevent further skin breakdown for patient. Allergies and pharmacy were verified. R: Message sent HP to provider for review. Mother of patient verbalized understanding. Reason for Disposition Prescription request for new medicine (not a refill) Protocols used: Medication Question [id number] documented in this encounter [facility] 01-26-2023 Telephone encounter Note SW had received a message from pts new [facility]: Elizabeth Paula on 01/25/23. A justification for the incontinence supplies would be needed in order for a request to be submitted through waiver. SW reached back out to mom for clairity on the number of times that pt needs to be changed. Mom changes her daughter every 3 hrs which includes both the diaper and the booster pad. Mom had received about 311 diapers/pads in the past-this allowed her to get through the month without any shortages. SW received a message from [facility] re: whether or not [facility] is a waiver provider. SW reached out to [facility] and it does not appear that they are a waiver provider. SW will reach back out to [facility]. Total time of phone call: 11-15 minutes [facility] 01-26-2023 Telephone encounter Note Spoke with Karen. Reports she called [facility] and was told they could not give her advice unless she was referred as a new patient (due to length of time since last visit) New pressure relieving mattress has been in process for 3 years per Karen- [facility] reports she is working as fast as she can on it. Karen is applying Desitin with fungal cream to area. Will send photo of wound (Karen states areas are staple sized in length- they look bigger in the picture. .mdc [facility] 01-25-2023 Telephone encounter Note Spoke with pts mom to gather additional information re: incontinence supplies. Mom is stating that she is not receiving enough supplies through the month and is having to buy additional diapers and pads. SW reached out to [facility]-sales support representative is stating that pt is receiving the maximum that insurance will allow. [facility] does not make any exceptions based on medical need. Pts next shipment is due around Feb 02. Pt is currently receiving 96 pad, 90 briefs, 2 boxes of gloves and 150 chux. A new order will be needed at the end of February. SW left a message for pts [facility]: Paulina Fosterer [phone] to determine if there are resources available through DD board. Total time of phone call: 6-10 minutes [facility] 01-25-2023 Miscellaneous Notes Spoke with pts mom to gather additional information re: incontinence supplies. Mom is stating that she is not receiving enough supplies through the month and is having to buy additional diapers and pads. SW reached out to [facility] is stating that pt is receiving the maximum that insurance will allow. [facility] does not make any exceptions based on medical need. Pts next shipment is due around Feb 02. Pt is currently receiving 96 pad, 90 briefs, 2 boxes of gloves and 150 chux. A new order will be needed at the end of February. [facility] left a message for pts [facility]: Paulina Fosterer [phone] to determine if there are resources available through DD board. Total time of phone call: 6-10 minutes Agree with advice given. Called and spoke with Karen. Area is on Eveline's back directly over a jason. 2-3 weeks duration. Approximately 1 inch in length. Reddened Not able to palpate any fluid beneath. No exudate or drainage. Area is not open. More friction-related. Karen feels area is irritated from turning (hand placement with turns) Recommended that Karen call [facility]'s [facility] Care (as she has had extensive treatment from them in the past) for advisement. She is comfortable doing this. She agrees to let me know what their recommendation is. Karen reports she has a new supplier for Eveline's diapers. Asks that Jennyfer call her related to concerns with quantity of diapers being supplied. Will forward request. Total time of phone call: <5 minutes Please call to get more information. S: Patient's mom spoke with [facility] nurse regarding medication request B: Onset of symptoms/concern 2-3 weeks A: Per patient's mother, patient had a jason placed in her back since 2003. Patient is getting a new mattress, currently sleeping on an air mattress. Patient takes collagen. Patient is bedridden, has had only 1 bed sore. Patient has a red spot where the jason is located. Mother and care givers have tried multiple things: billingsley skin, gauze, turn and reposition frequently, anti fungal cream with desitin, bag balm, eucerin cream. Mother states the area looks like it wants to open up, which it isn't. Afebrile. Mother is seeking advice and a medication to prevent further skin breakdown for patient. Allergies and pharmacy were verified. R: Message sent HP to provider for review. Mother of patient verbalized understanding. Reason for Disposition Prescription request for new medicine (not a refill) Protocols used: Medication Question [id number] documented in this encounter [facility] 01-24-2023 Telephone encounter Note Agree with advice given. [facility] 01-24-2023 Miscellaneous Notes Agree with advice given. Called and spoke with Karen. Area is on Eveline's back directly over a jason. 2-3 weeks duration. Approximately 1 inch in length. Reddened Not able to palpate any fluid beneath. No exudate or drainage. Area is not open. More friction-related. Karen feels area is irritated from turning (hand placement with turns) Recommended that Karen call [facility] (as she has had extensive treatment from them in the past) for advisement. She is comfortable doing this. She agrees to let me know what their recommendation is. Karen reports she has a new supplier for [employer] diapers. Asks that Jennyfer call her related to concerns with quantity of diapers being supplied. Will forward request. Total time of phone call: <5 minutes Please call to get more information. S: Patient's mom spoke with [facility] nurse regarding medication request B: Onset of symptoms/concern 2-3 weeks A: Per patient's mother, patient had a jason placed in her back since 2003. Patient is getting a new mattress, currently sleeping on an air mattress. Patient takes collagen. Patient is bedridden, has had only 1 bed sore. Patient has a red spot where the jason is located. Mother and care givers have tried multiple things: billingsley skin, gauze, turn and reposition frequently, anti fungal cream with desitin, bag balm, eucerin cream. Mother states the area looks like it wants to open up, which it isn't. Afebrile. Mother is seeking advice and a medication to prevent further skin breakdown for patient. Allergies and pharmacy were verified. R: Message sent HP to provider for review. Mother of patient verbalized understanding. Reason for Disposition Prescription request for new medicine (not a refill) Protocols used: Medication Question [id number] documented in this encounter [facility] 01-24-2023 Telephone encounter Note Called and spoke with Karen. Area is on Eveline's back directly over a jason. 2-3 weeks duration. Approximately 1 inch in length. Reddened Not able to palpate any fluid beneath. No exudate or drainage. Area is not open. More friction-related. Karen feels area is irritated from turning (hand placement with turns) Recommended that Karen call [facility] (as she has had extensive treatment from them in the past) for advisement. She is comfortable doing this. She agrees to let me know what their recommendation is. Karen reports she has a new supplier for Eveline's diapers. Asks that Jennyfer call her related to concerns with quantity of diapers being supplied. Will forward request. Total time of phone call: <5 minutes [facility] 01-24-2023 Telephone encounter Note Please call to get more information. T [facility] 01-24-2023 Telephone encounter Note S: Patient's mom spoke with [facility] nurse regarding medication request B: Onset of symptoms/concern 2-3 weeks A: Per patient's mother, patient had a jason placed in her back since 2003. Patient is getting a new mattress, currently sleeping on an air mattress. Patient takes collagen. Patient is bedridden, has had only 1 bed sore. Patient has a red spot where the jason is located. Mother and care givers have tried multiple things: billingsley skin, gauze, turn and reposition frequently, anti fungal cream with desitin, bag balm, eucerin cream. Mother states the area looks like it wants to open up, which it isn't. Afebrile. Mother is seeking advice and a medication to prevent further skin breakdown for patient. Allergies and pharmacy were verified. R: Message sent HP to provider for review. Mother of patient verbalized understanding. Reason for Disposition Prescription request for new medicine (not a refill) Protocols used: Medication Question [id number] [facility] 11-30-2022 Telephone encounter Note Next appt on 02/21/2023 with . [facility] 11-30-2022 Miscellaneous Notes Next appt on 02/21/2023 with . documented in this encounter [facility] 11-06-2022 Note Called and spoke oliver Jones. Labs were drawn 2 weeks ago. Called [facility]. They will fax results. Total time of phone call: <5 minutes [facility] 10-27-2022 Telephone encounter Note Document signed/faxed. [facility] 10-27-2022 Miscellaneous Notes Document signed/faxed. Called [facility], updated fax number will place fax in office to be signed. Can you please look for this if you haven't seen it? Name of caller: Colt Rosas Contact phone number: [phone] Relationship to Patient: [facility] Health Provider: Dr. Crandall Practice: [facility] Chief Complaint/Reason for Call: Caller states he faxed over standard order for formula supplies and tube feeding on 10.25.22 at 1 pm and would faxed to [phone] and notified once complete. Please advise. Thank you Best time of day caller can be reached: Any Patient advised that office/PCP has 24-48 business hours to return their call: Yes documented in this encounter [facility] 10-27-2022 Telephone encounter Note Called [facility], updated fax number will place fax in office to be signed. [facility] 10-26-2022 Telephone encounter Note Can you please look for this if you haven't seen it? [facility] 10-26-2022 Telephone encounter Note Name of caller: Colt Rosas Contact phone number: [phone] Relationship to Patient: [facility] Provider: Dr. Crandall Practice: [facility] [facility] Chief Complaint/Reason for Call: Caller states he faxed over standard order for formula supplies and tube feeding on 10.25.22 at 1 pm and would faxed to [phone] and notified once complete. Please advise. Thank you Best time of day caller can be reached: Any Patient advised that office/PCP has 24-48 business hours to return their call: Yes [facility] 10-20-2022 Telephone encounter Note Reviewed. [facility] 10-20-2022 Miscellaneous Notes Reviewed. Received call from Carolyn at [facility]. She did a re-certification assessment for Eveline. No acute needs identified. Flushed Med-port without difficulty. Medport has no blood return but flushes easily. Carolyn is able to do labs. She would prefer patient resource coordinator from [facility] draw the labs as Eveline is a difficult venipuncture but would try if needed. She will discuss with Karen. Verbal order to continue nursing services given per Dr Crandall. Total time of phone call: <5 minutes documented in this encounter [facility] 10-20-2022 Telephone encounter Note Received call from Carolyn at [facility]. She did a re-certification assessment for Eveline. No acute needs identified. Flushed Med-port without difficulty. Medport has no blood return but flushes easily. Carolyn is able to do labs. She would prefer patient resource coordinator from [facility] draw the labs as Eveline is a difficult venipuncture but would try if needed. She will discuss with Karen. Verbal order to continue nursing services given per Dr Crandall. Total time of phone call: <5 minutes [facility] 10-11-2022 Note 10/11/2022 REFERRING PHYSICIAN: Lolis Crandall DO REASON FOR REFERRAL: Chief Complaint Patient presents with Follow-up Multidisciplinary Visit Chief complaint: Asthma, NURIA, chronic tracheostomy History of Present Illness: Here with mom and patient's twice weekly nurse Venus. Mom says patient is stable, says chronic congestion needing to be suctioned frequently but that is not unusual. Occasional wheeze. Good cough with suction. ROS: Review of Systems Unable to perform ROS: Patient nonverbal Past Medical History: 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 Scoliosis Seizure (HCC) Urinary tract infection associated with indwelling urethral catheter (HCC) 12/01/2020 Past Surgical History Past Surgical History: Procedure Laterality Date GASTROSTOMY TUBE PLACEMENT SPINAL FIXATION SURGERY W/ IMPLANT TRACHEOSTOMY VAGUS NERVE STIMULATOR INSERTION Social History: Social History Socioeconomic History Marital status: Single Tobacco Use Smoking status: Never Smokeless tobacco: Never Substance and Sexual Activity Alcohol use: Never Drug use: Never Medications: Current Outpatient Medications Medication Sig Dispense Refill acetaminophen (Tylenol Children's) 160 MG/5ML suspension Take 22.5 mL (720 mg) by mouth every 6 hours as needed for mild pain (1-3), moderate pain (4-6) or fever. No more than 4 doses in a 24 hour period. 118 mL 11 Acetaminophen Extra Strength 500 MG tablet TAKE 1 AND 1/2 TABLETS VIA GTUBE EVERY 4 HOURS NEEDED FOR PAIN. DO NOT EXCEED 4 DOSES 120 tablet 5 albuterol (2.5 MG/3ML) 0.083% nebulizer solution USE 1 VIAL VIA NEBULIZER DIRECTED EVERY 4 HOURS NEEDED 120 mL 5 Banzel 400 MG tablet Take 2 tablets (800 mg) by mouth in the morning and 2 tablets (800 mg) at noon and 2 tablets (800 mg) in the evening and 2 tablets (800 mg) before bedtime. 240 tablet 5 betamethasone valerate (Valisone) 0.1 % lotion apply 5 milliliters to affected area 2 TIMES A WEEK, WHEN NEEDED FOR RASH cetirizine (Cetirizine HCl Allergy Child) 5 MG/5ML syrup 10 mL (10 mg) by Per G Tube route daily. 300 mL 5 collagenase (Santyl) 250 UNIT/GM ointment APPLY OINTMENT TOPICALLY TO WOUND DIRECTED Control Gel Formula Dressing (DuoDERM CGF Border) misc Apply to open wound and change every 7 days. Size: 10 x 10 cm D-Neal Pediatric 10 MCG/ML liquid TAKE 5 ML BY MOUTH (1 TEASPOONFUL) BY MOUTH EVERY DAY 5 mLs by Per G Tube route daily 150 mL 11 famotidine (Pepcid) 40 MG/5ML suspension USE DIRECTED 2 TIMES DAILY 2.5 mLs by Per G Tube route 2 times daily fluocinonide (Lidex) 0.05 % external solution APPLY TOPICALLY THIN LAYER TO THE AFFECTED AREA(S) TO SCALP AND SKIN EVERY OTHER DAY NEEDED 120 mL 5 ibuprofen 100 MG/5ML suspension TAKE 10 ML [2 TEASPOONFUL] BY MOUTH EVERY 6 HOURS NEEDED FOR PAIN OR FOR FEVER insulin pen needle 31G x 6 mm misc 1 EACH BY DOES NOT APPLY ROUTE DAILY 100 each 3 ketoconazole (NIZOral) 2 % cream Apply topically daily to affected areas on face 60 g 5 ketoconazole (NIZOral) 2 % shampoo Apply topically. Lactobacillus (Acidophilus) tablet 1 capsule by Per G Tube route in the morning and 1 capsule at noon and 1 capsule before bedtime. 270 tablet 3 lamoTRIgine (LaMICtal) 200 MG tablet Takes 2 tabs in the AM and 1.5 tabs in the PM levETIRAcetam (Keppra) 100 MG/ML solution 10 mL (1,000 mg) by Per G Tube route 2 times daily. 1800 mL 3 lidocaine-prilocaine (Emla) 2.5-2.5 % cream Apply topically as needed for Pain (prior to blood draw) 30 g 5 loperamide (Imodium) 2 MG capsule TAKE 1 CAPSULE BY MOUTH 3 TIMES DAILY NEEDED 90 capsule 1 LORazepam (Ativan) 1 MG tablet Take 1 mg by mouth as needed for seizures. LORazepam (Ativan) 1 MG tablet 1 tablet (1 mg) by Per G Tube route 3 times daily. 90 tablet 5 Midazolam 5 MG/0.1ML solution Inhale 5 mg as needed. Multiple Vitamins-Minerals (multivitamin with iron-minerals) liquid TAKE 15 ML BY MOUTH (1 TABLESPOONFUL) BY MOUTH EVERY DAY mupirocin (Bactroban) 2 % ointment APPLY TOPICALLY THIN LAYER TO THE AFFECTED AREA(S) TO TO TO RASH 3 TIMES DAILY NEEDED 22 g 3 Nutritional Supplements (Nutritional Supplement Plus) liquid PEPTAMIN VHP 4 cans per day nystatin (Mycostatin) cream Apply topically 2 times daily. 60 g 5 Oral Electrolytes (Pediatric Electrolyte) solution 30 mL. oral electrolytes replacement (Pedialyte) solution 200 mL. phenytoin (Dilantin) 125 MG/5ML suspension 6 mL (150 mg) by Per G Tube route 2 times daily. 360 mL 0 polyethylene glycol (Miralax) 17 GM/SCOOP powder GIVE 17gram PER gtube 2 TIMES DAILY 1020 g 5 pyridoxine (B-6) 100 MG tab (more content not included)... [facility] 10-11-2022 History of Presen t illness Narrative Images from the original note were not included. documented in this encounter [facility] 09-15-2022 Telephone encounter Note Noted. [facility] 09-15-2022 Miscellaneous Notes Noted. Received call from Kimberly [facility]. Med port was to be flushed this week- unable to do flush until next week. Will be going on Sunday. Dr Crandall notified. Total time of phone call: <5 minutes documented in this encounter [facility] 09-15-2022 Telephone encounter Note Received call from Kimber[facility]. Med port was to be flushed this week- unable to do flush until next week. Will be going on Sunday. Dr Crandall notified. Total time of phone call: <5 minutes [facility] 09-11-2022 Miscellaneous Notes The following approved medication requests have been transmitted electronically. Requested Prescriptions Signed Prescriptions Disp Refills lamoTRIgine (LAMICTAL) 200 mg tablet 315 tablet 1 Sig: TAKE 2 TABLETS by G-tube EVERY MORNING and TAKE 1 AND 1/2 TABLETS EVERY EVENING Authorizing Provider: CRISTINO SALAZAR APRN.CNP Prescription Refill: Requested by: pharmacy Please E-Scribe Caller Contact Number: [phone] Pharmacy Name: [facility] Pharmacy Number: [phone] Generic/ brand: Generic 30 or 90 day supply requested: 90 Last appointment: 03/16/21 Next Appointment: None, sent message to S51 for scheduling. Patient of Dr. Phipps documented in this encounter [facility] 08-25-2022 Telephone encounter Note Rx declined, as It was just filled on 08/22/22 at [facility]. [facility] 08-25-2022 Miscellaneous Notes Rx declined, as It was just filled on 08/22/22 at [facility]. documented in this encounter [facility] 08-09-2022 Telephone encounter Note VV scheduled for tomorrow at 4pm. [facility] 08-09-2022 Miscellaneous Notes VV scheduled for tomorrow at 4pm. Name of caller: Karen Contact phone number: [phone] Relationship to Patient: family member mother Provider: Dr. Bello Practice: [facility] Chief Complaint/Reason for Call: Karen states she thought appt for 08/09 was VV due to pt being on bed rest, mom would like to know if Dr. Bello can see pt at her 09/13/22 appt with PCP. Please advise. Best time of day caller can be reached: any Patient advised that office/PCP has 24-48 business hours to return their call: N/A documented in this encounter [facility] 08-09-2022 Telephone encounter Note Name of caller: Karen Contact phone number: [phone] Relationship to Patient: family member mother Provider: Dr. Bello Practice: [facility] Chief Complaint/Reason for Call: Karen states she thought appt for 08/09 was VV due to pt being on bed rest, mom would like to know if Dr. Bello can see pt at her 09/13/22 appt with PCP. Please advise. Best time of day caller can be reached: any Patient advised that office/PCP has 24-48 business hours to return their call: N/A [facility] 07-28-2022 Miscellaneous Notes The following approved medication requests have been transmitted electronically. Requested Prescriptions Signed Prescriptions Disp Refills phenytoin (DILANTIN) 125 mg/5 mL susp 1100 mL 1 Sig: take 6 milliliters by mouth every 12 hours Authorizing Provider: CRISTINO SALAZAR APRN.CNP Prescription Refill: Requested by: pharmacy Please E-Scribe Caller Contact Number: fax Pharmacy Name: [facility] Number: [phone] Generic/ brand: Generic 30 or 90 day supply requested: 90 Last appointment: 03/16/21 Next Appointment: Needs appointment Patient of Dr. Phipps documented in this encounter [facility] 07-28-2022 Telephone encounter Note I'm getting a request for forteo refill but I am not seeing that we have seen this patient yet. Please see if that is the case. Thank you [facility] 07-28-2022 Miscellaneous Notes I'm getting a request for forteo refill but I am not seeing that we have seen this patient yet. Please see if that is the case. Thank you documented in this encounter [facility] 07-26-2022 History of Presen t illness Narrative Images from the original note were not included. Department of Neurological Sciences Section of Epilepsy [facility] [address] [facility] [address] Dept: [phone] Dept Loc: [phone] Patient was seen today via Telehealth by agreement and consent in light of the current COVID-19 pandemic.This ambulatory visit was attempted as a virtual video encounter with the patient in their home as the originating site but the patient care provider was unable to connect with video services so the encounter was completed with audio only. I used the following Telehealth technology: Audio and video capabilities. Per the [facility] guidelines, this patient encounter is appropriate and reasonable under the circumstances given the patient's particular presentation at this time. The patient has been advised of the potential risks and limitations of this mode of treatment (including but not limited to the absence of in-person examination) and has agreed to be treated in a remote fashion in spite of them. The patient was advised to contact the clinic should they have any change in their clinical status prior to their rescheduled appointment. The patient was advised that the clinic is a safe place to receive medical care. Any and all of the patient's/patient's family's questions on this issue have been answered. The patient has also been advised to contact this office for worsening conditions or problems, and seek emergency medical treatment and/or call 911 if the patient deems either necessary. The patient stated that they are currently in the state of [place]. Last in office appointment in [place] was 09/01/21. For concerns related to possible COVID-19 symptoms including but not limited to fever, cough, and shortness of breath, the patient is advised to contact the clinic. Patient was also advised to visit COVID-19 information webpage, or call with additional questions or Concerns. The patient was also advised per the CDC guidelines to implement strategies to minimize their risk of exposure to COVID-19 including not going out of the home if they are sick except to seek medical care, avoiding others who are sick, aggressive hand washing and avoiding touching their face. Visit type: followup Reason for Visit: Follow-up and Seizures (Last seizure- 7 years ago) Objective HPI Eveline Saavedra is a 31 y.o. 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 She has a VNS (IPG placed in right chest now replaced on the left 5 years ago) and on ASM polytherapy through G-tube and trach. Prior to 5 years ago she had been hospitalized at [facility]. She vomits when the the magnet is swiped. She is an established patient of Dr. Phipps and was last seen by Negrita Morris CNP on 03/09/2020, at which time ASMs were continued after reports of seizure freedom for 5 years ago while sick. She was last seen by an outside provide on 03/14/2021. At that time, seizures well controlled on current regimen, seizure free for at least 4 years. Tolerating medication well, no side effects. Patient currently undergoing wound vac treatment for pressure ulcer on coccyx, recently complicated by cellulitis. Mom is paid via [employer] to work with Eveline full-time. She is being seen today for followup. Interval Events: Eveline has been doing well. Her mother denies any seizure for the past 7 years. Her mother denies any concerns. Current ASM: Lorazepam 1 mg tid and PRN levetiracetam 1000mg bid Banzel 800mg qid Midazolam (nayzilam) 5 mg prn for breatkthrough prolonged seizure Phenytoin 125mg/ 5ml Take 6 ml bid. Lamictal 400 mg morning and 300 mg at night. Prior History: 01/25/23 Karen her mother reports that Eveline wound on her buttock has healed and she is no longer following with wound care. Karen reports that she is unsure if she still has any bone infection . Eveline has not had fevers or demonstrating any signs of infections. She has been off of antibiotic for about 1 year. Karen has not witnessed any seizures or concerning events. 09/21/21 Dee has been doing well. She denies any seizure or seizure like events. Her last known seizure was 5 years ago. Labs 06/08/21 Lamotrigine level 4.9 Phenytoin level 20.8 06/07/21 Diet Clinic The patient was seen today for dietary treatment options in the epilepsy diet clinic. The patient and her family member attended a one-hour session during which all dietary treatments of epilepsy were discussed. The patient's history is suggestive for a diagnosis of symptomatic epilepsy which is very intractable to multiple ASM and VNS in the context of Rett syndrome (MECP2 unclear subtype). Patient is G-tube and tracheostomy tube dependent. Mother is confirming stable quality of life with baseline palliative goals. Seizures are putatively controlled on current regimen, seizure free for at least 5 years. Tolerating medication well, no side effects. 05/09/2021 Her mother reports her VNS triggers when she bears down to defecate. Today, mom reports that last seizure was 4 or 5 years ago, medication is controlling seizures very well. Tolerating ASMs well, no reports of side effects. Mom states that the last time Eveline had seizures, she was hospitalized for other medical issues at that time. In other health, patient has been hospitalized twice for cellulitis this year from a pressure ulcer near her coccyx. She is now following with the wound clinic. Mom states that tape from the wound vac caused pressure sore since July 2020/cellulitis with a wound prep. Otherwise she has been healthy during [facility]. She has a nurse visiting 3 days per week (3 hrs per shift) and another nurse visiting 4 days per week for (10 hours per shift). Mom is following through the weekends. CURRENT ASMs: LEV 100mg/mL solution - 1000 mg (10 mL) BID Banzel 800 mg QID Lamotrigine 400/300 Ativan 1 mg TID and as needed for breakthrough seizures Dilantin 125/5mL - 150 mg (6 mL) BID Nayzilam PRN (never used) At the last visit mom reported daily staring spells and GTC sz under relative good control on current five AED regimen. Mother did not want to make any changes and plan was to continue current AEDs. Other Interval History: No ER visits, hospitalizations or changes in health status since the last visit. Continues with daily brief staring spells. Eyes roll and unresponsive for seconds. No GTC since last visit. Patient's father last month from [place]. They were very close. They slept in hospital next to each other in the living room. Patient noticeably less bright since his passing. SEIZURE HISTORY (Per [facility]): Seizure started at age 1-2 years. Though there were no issues with or perinatally. Patient was noted to have developmental delay and she did not walk on time or talk on time and was initially just thought to be slow per mom, but then started regressing. She was diagnosed with cerebral palsy for many years but later genetic testing confirmed Rett syndrome. Patient has had intractable epilepsy and benign many medications over the years that mom does not exactly recall. She had a vagal nerve stimulator (VNS) placement 2004 and mom report some efficacy with placement. The battery was replaced in 2010 and most recently in 11/2016. During inpatient admission for VNS battery replacement patient had a lot of complications mostly breathing issues and had 2 [id number] admissions which lasted from about November to February at [facility]. During that time mother reports they thought it was the end . And she has since been seen by palliative medicine. She had tracheostomy tube and gastrostomy tube placed at that time. Mom reports the major functional changes her ability to laugh, which she feels is due to scarring related to the tracheostomy. Patient's functional status is low she is wheelchair-bound and has minimal interactions, nonverbal with gastrostomy tube and tracheostomy dependence. She does occasionally smile appropriately per mom and seems to have some sense of awareness of her environment. However she is completely dependent for care and even during the course of the clinic visit requires functioning multiple times. Although she is approved for 24-hour nursing care currently her nurse is there about 12-18 hours per day. Her stepdad ended up utilizing all of his FMLA with her prolonged hospitalization and since left his job and now stays home with her to help with her care. Per the last neurology clinical note patient had been on 5 AEDs and had been seizure-free since 08/2014, and mom agrees with this. However during her hospitalization she did have significant convulsive breakthrough seizures which resulted in the up titration of many medications including the addition of Dilantin. Mom thinks she was observed to EEG at some point but she is unsure, records unavailable. Mother really wants to not rock the boat given the patient has had history of significant status epilepticus requiring intubation and prolonged hospitalization in the past, although remote past. Since discharge from the hospital, there is been no concern for seizure activity. She has no concern for side effects or excessive sedation on these current medication regimen. Mom reports that Eveline's port is blocked and that there is difficulty getting blood from her and thus they would like to defer any lab draw unless it is needed for other reasons. Mom reports a VNS settings were actually decreased in the hospital because there was some concern that they may have related to her cough or issues breathing. However when these were discrete this symptoms did not improve. Over the years they have never used the magnet because the magnet makes her throw up. Magnet makes her throw up. Episode Description: Type A: Staring continues to occur. Previously assessed by EEG - Description; Likely some behavioral episodes mom has been told these are Rett episodes and have been recorded on outpatient EEGs and determined not to be seizures. She describes patient looking up into the right and having eye fluttering. However as below some EEG dialeptic seizures as well. - Typical duration: Few seconds - Typical frequency: Multiple times per day Type B: Convulsions Desctipion: Full body rhythmic shaking Duration: few minutes, though does report a history of prolonged seizure/status epilepticus requiring intubation in the past Frequency: last 11/2016; prior to that was well controlled 2 years before 08/2014 Type C: half body seizures Description: One side of the body (unclear which) seems to be flailing of right upper extremity moving around unable to be controlled with right face tensing. Frequency: Not recently Additional Information: -History of status epilepticus - at age 18 for a few months required intubation -Longest seizure free interval: almost 5 years now Seizure risk factors: 1. Head Trauma (no) 2. EXECUTIVE STAFF ASSISTANT Infections (no) 3. Family History of Seizures (no) 4. Developmental Delay (YES) 5. Febrile Seizures (YES) 6.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 08/2014, and mom agrees with this. However during her hospitalization she did have significant convulsive breakthrough seizures which (more content not included)... [facility] 02-17-2021 Note Medical Teaching Ser vice Discharge Summary Patient: Eveline Saavedra : 1990 Acct: [id number] PCP: Misty Porter MD Admitting Physician: Amada Quintero MD Admission Date: 02/13/2021 Discharge Date: 02/17/2021 Visit Status: Admission Code Status: Prior Admission Diagnosis: Sepsis (HCC) [A41.9] Discharge Diagnoses: Active Problems: Gastrostomy tube dependent (HCC) Rett syndrome Tracheostomy tube present (HCC) Urinary incontinence Cellulitis Chronic osteomyelitis (HCC) Developmental delay, profound Resolved Problems: Sepsis (HCC) Leukocytosis Patient Active Problem List Diagnosis Date Noted ? Cellulitis 02/14/2021 ? Chronic osteomyelitis (HCC) 02/14/2021 Right ischiopubic chronic osteomyelitis secondary to decubitus ulcer extending to bone ? Developmental delay, profound ? Diarrhea 12/01/2020 ? Indwelling Poe catheter present 12/01/2020 ? Urinary tract infection associated with indwelling urethral catheter ([facility]) 12/01/2020 ? Pressure injury of right buttock, unstageable ([facility]) ? Astigmatism 07/30/2020 ? Contraction, joint, multiple sites 11/12/2019 ? Dysphagia, oropharyngeal 11/12/2019 ? Asthma, moderate persistent 11/12/2019 Albuterol aerosol three times daily routinely PRN with wheezing ? Reflux 11/12/2019 ? Scoliosis 11/12/2019 ? 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 At high risk for malnutrition 11/12/2019 PEPTAMIN VHP 150 cc (0.6 cans) 4 times a day , 100 cc (0.4 can) once a day 3 cans per day Order through [employer] 30 day supply - 3 cases 200 cc free water 5 times a day 03/29 teaspoon table salt 4 times a day ? Full cardiopulmonary resuscitation status 11/12/2019 11-12-19 Mother endorses mechanical ventilation and CPR for acute severe illness ? Neurogenic bladder 09/05/2018 ? Urinary incontinence 09/05/2018 Diapers through [employer] ? Status post VNS (vagus nerve stimulator) placement 08/24/2017 For seizures activates Q 3 min If mother activates it for additional activity, patient vomits ? Seasonal allergic rhinitis 08/07/2017 ? History of femur fracture 01/21/2017 left ? Tracheostomy tube present ([facility]) 01/18/2017 Placed 01/18/2017 PORTEX - Bivona Customized Silicone Tracheostomy Tube Uncuffed??Lot:[id number]??REF:[id number]??I.D 6.5 MM O.D 9.4MM Length 80MM?? NOTE: this is a custom tube Order through [facility] OK for ventilation OK for CPR ? Seborrheic dermatitis 11/11/2012 ? Profound intellectual disabilities 11/11/2012 ? Osteoporosis 11/28/2011 This term is a replacement for an inactive term ? 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 Obstructive sleep apnea (adult) (pediatric) 10/18/2009 Oxygen at night No BiPAP [facility] 3.5 liter HS and PRN ? History of nephrolithiasis 02/04/2008 ? 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 Gastrostomy tube dependent (HCC) 08/26/2007 HOSPITAL COURSE: 30 y/o F with Rett Syndrome presented to ED with mother due to concerns of fever and rash. Patient admitted for sepsis 2/2 cellulitis in the setting of chronic stage IV decubitus ulcer with likely asoociated underlying chronic osteomyelitis. Started on IV abx. ID was consulted and advised on collecting cultures including wound cultures for sensitivities. Patients home medications were continued including G-tube feedings.. Leukocytosis and skin inflammation greatly decreased during the course of her admission. Bcx (-) and Wcx (+) for streptococcus both sensitive for Amox/Clav. The decision was made to discharge patient in stable condition with enteral antibiotics. Significant Medication Changes: Amox/Clav Suspension BID x 14 days SIGNIFICANT DIAGNOSTIC STUDIES: CT Abdomen/Pelvis (02/13) CONCLUSION(S): 1. No evidence of abdominopelvic abscess or other pathology. 2. Chronic right ischiopubic osteomyelitis due to large decubitus ulcer which extends to the bone. 3. Bibasilar dependent atelectasis. CT R lower extremity (02/13) CONCLUSION(S): 1. No deep tissue abscess or inflammation identified. 2. Chronic decubitus ulcer extending to the right ischiopubic junction. 3. Chronic ischiopubic osteomyelitis. 4. Diffuse muscle atrophy and fatty infiltration. CXR (02/13) FINDINGS/IMPRESSION: 1. Lines/Tubes/Devices/Hardware: Thoracolumbar posterior fusion with Singh rods. Tracheostomy device. Left chest wall pacemaker device with lead tips overlying the left lower neck. Left subclavian [id number] with tip overlying the SVC. Cholecystectomy clips. 2. Lungs: Mild interstitial prominence. This may be on the basis of mild edema, interstitial pneumonitis or chronic fibrotic change. No focal consolidation is seen. 3. Pleura: No pneumothorax or large pleural effusions. 4. Heart and med (more content not included)... [facility] 10-08-2020 Hospital Discharg Garret Hernandez PA - 10/08/2020 Follow-up your primary care physician. Please try to obtain a stool sample provided for testing. Please do not hesitate to bring the child back with any other concerns. The following attachments cannot be sent through Care Everywhere.Diarrhea ([place])documented in this encounter [facility] Work Phone: 10-06-2020 History of Presen t illness Narrative Poe placed per order. Urine returned noted. Secured with leg securement device. Discharge instructions given to patient's mother. No questions or concerns at this time. Spoke with Dr. Lopez. He stated that it was okay to use med port instead of placing PICC line. Communicated with Dr Galicia via [employer] regarding plan for PICC insertion. This patient already has an existing mediport that reportedly was used previously for residential IV antibiotics in the home by Eveline's mother. Per Angelique Powell RN patient's mother prefers the mediport be used in lieu of inserting a secondary line. Dr Galicia has ok'd use of the mediport at home for IV antibiotics infusions. Requested Dr Galicia to discontinue the current PICC insertion order since this will not be necessary. Home health RN should access existing mediport at home for the IV antibiotic infusions. Jose Alberto BROWN,RN,[facility] [employer] Dr. Lopez, CHUCK, and PAUL Leon, regarding patient's mother's request to use left chest med port instead of placing a PICC. Waiting on response. Infectious Disease Note S. No change O. Surgery does not want to debride. Cultures not yet back but high risk for polymicrobial infection. A. Deep wound infection/ possible osteomhyelitis P. Home on IV Daptomycin + Meropenem x 6 weeks. > 35 minutes spent on homegoing therapy and arrangements for OPAT. Moody Lopez M.D. Infectious Disease Service (1) Cell (2) [employer]: Available (3) ID Answering Service: Pharmacy Vancomycin Consult Follow-Up Note Current Dosinmg q8h Recent Labs 10/04/20 1726 10/05/20 0329 BUN 11 10 Recent Labs 10/04/20 1726 10/05/20 0329 CREATININE <0.15* <0.15* Recent Labs 10/04/20 1726 10/05/20 0329 WBC 15.7* 13.7* Ht Readings from Last 1 Encounters: 10/05/20 5' 4 (1.626 m) Wt Readings from Last 1 Encounters: 10/05/20 106 lb 3.2 oz (48.2 kg) Body mass index is 18.23 kg/m . CrCl cannot be calculated (This lab value cannot be used to calculate CrCl because it is not a number: <0.15). Lab Results Component Value Date [facility] 19.5 10/05/2020 Assessment/Plan: Lower dose at 750mg q12h based on recent trough level stated above and goal trough of 15-20 Will monitor labs for changes in renal function and change dosing as appropriate. Images from the original note were not included. Hospitalist Progress Note 10/05/2020 2:36 PM Subjective: Admit Date: 10/04/2020 PCP: Misty Porter MD Room#: 255/9175 Interval History: F/u admission last night Hand Finisher documentation reviewed Plan for wound care only at this time ROS unobtainable from pt Diet NPO Patient Vitals for the past 96 hrs (Last 3 readings): Weight 07/13/21 0604 106 lb 3.2 oz (48.2 kg) 10/04/20 1959 106 lb 3.2 oz (48.2 kg) 10/04/20 1528 101 lb (45.8 kg) Medications: sodium chloride collagenase Topical BID Sodium Hypochlorite Irrigation BID sodium chloride flush 3 mL Intravenous Q8H sodium chloride 875 mL Intravenous Once lactobacillus 1 capsule Per G Tube TID cetirizine 5 mg Per G Tube Daily famotidine 20 mg PEG Tube BID hydroCHLOROthiazide 25 mg PEG Tube Daily lamoTRIgine 400 mg PEG Tube QAM lamoTRIgine 300 mg PEG Tube QPM levETIRAcetam 1,000 mg PEG Tube BID CENTRUM/CERTA-NEAL with minerals oral 15 mL PEG Tube Daily nystatin Topical BID [Held by provider] potassium bicarb-citric acid 20 mEq Per G Tube BID rufinamide 800 mg PEG Tube 4x Daily sennosides 8.8 mg Per G Tube BID vitamin B-6 100 mg Per G Tube Daily Vitamin D 2,000 Units PEG Tube Daily sodium chloride flush 5-40 mL Intravenous 2 times per day enoxaparin 30 mg Subcutaneous Daily phenytoin 150 mg Oral BID vancomycin 750 mg Intravenous Q8H piperacillin-tazobactam 4,500 mg Intravenous Q6H LABS: CBC: Recent Labs 10/04/20 1726 10/05/20328 WBC 15.7* 13.7* RBC 4.90 4.18 HGB 15.0 13.1 HCT 44.5 38.0 MCV 90.9 90.8 RDW 13.3 13.2 PLT 475* 448* BMP: Recent Labs 10/04/20 1726 10/05/20328 NA 132* 133* K 3.9 5.3* CL 94* 98 CO2 33* 33* BUN 11 10 CREATININE <0.15* <0.15* GLUCOSE 135* 87 CALCIUM 9.4 8.3* ANIONGAP 5 2* LIVER PROFILE: Recent Labs 10/05/20328 AST 181* ALT 20 BILITOT 1.9* ALKPHOS 70 LABALBU 4.0 PROT 8.3* Objective: Vitals: BP 114/69 Pulse 99 Temp 96.8 F (36 C) (Temporal) Resp 20 Ht 5' 4 (1.626 m) Wt 106 lb 3.2 oz (48.2 kg) SpO2 92% BMI 18.23 kg/m Pulse Ox: SpO2 Av.8 % Min: 90 % Max: 99 % Supplemental O2: General appearance: NAD- occasional cough. Nonverbal. At baseline. HEENT: Normal cephalic, PERRL Neck: no JVD, Bivona trach Respiratory: Normal respiratory effort. Clear to auscultation Cardiovascular: Regular rate and rhythm with normal S1/S2 Abdomen: Soft, non-tender, non-distended with normal bowel sounds. PEG. Musculoskeletal: bipedal edema Skin: Left buttocks decub Neurologic: at baseline. Spastic quadriplegia Assessment/Plan Infected pressure ulcer - right ischium - continue wound care -wound culture pending -ID following: cont PipTazo/Vanco Sepsis -continue mgmt of above Hyperkalemia -hold supplemental potassium for now Mild hyponatremia -on thiazide Rett's syndrome -cont home meds TDRF, dysphagia->PEG -bolus TF resume -am labs, replace lytes prn -increase activity -DVT prophylaxis: [x] Lovenox [] Heparin [] SCDs [x] Encourage ambulation [] Already on Anticoagulation Advance Directive: Full Code Discharge planning: TBD Division of Hospitalist Medicine Inpatient Medical Services Janice herrera COMMUNITY SERVICE OFFICER made aware of dieticians recommendations for tube feedings Comprehensive Nutrition Assessment Type and Reason for Visit: Initial, Consult, Positive Nutrition Screen (TF ordering and management) Nutrition Recommendations/Plan: 1. Recommend initiating Bolus tube feed- Vital 1.5 (Peptide based formula)- 1 carton QID. 1 carton= 237ml to provide 1420 kcals, 64g protein, and 724 ml free water. (~29.6kcals, 1.33g protein per kg CBW 48kg). 2. Recommend 1g Vitamin C daily to promote wound healing. Suggest checking pt's Zinc level and supplement if deficient. 3. Monitor for timely nutrition progression, wts, and labs. RD will follow. Nutrition Assessment: Pt was admitted with worsening decubitus ulcer that started as a blister which progressed into a deeper wound. Pt's mother provided most of the subjective information; pt is non verbal due to hx of Rett's Syndrome. Pt with hx of 40# wt loss in 1.5 years, but mother states that since pt was changed to 4 cartons/day of Peptamen Intense ELECTROSTATIC PAINTER, pt has been maintaining her weight at 106#. Up 5# from 05/2020 after increase in bolus feeds Malnutrition Assessment: Malnutrition Status: Insufficient data Context: Chronic Illness Findings of the 6 clinical characteristics of malnutrition: Energy Intake: (Nutrition strictly via TF at home) Weight Loss: 7 - Greater than 20% over 1 year Body Fat Loss: Unable to assess Muscle Mass Loss: Unable to assess (Pt with expected muscle loss from decreased mobility) Fluid Accumulation: Unable to assess Legal Executive Assistant Strength: Not Performed Estimated Daily Nutrient Needs: Energy (kcal): 3682-6791 kcals (wound healing) (25-30); Weight Used for Energy Requirements: Current (48kg) Protein (g): 48-72 (1-1.5); Weight Used for Protein Requirements: Current Fluid (ml/day): 5735-2395; Method Used for Fluid Requirements: 1 ml/kcal Nutrition Related Findings: no edema; Na 133, K+ 5.3, CO2 33, Cr <0.15, Hgb/Hct wnl, albumin 4.0 Wounds: Pressure Injury (groin/buttock, left upper thigh wound) Current Nutrition Therapies: Diet NPO Anthropometric Measures: Height: 5' 4 (162.6 cm) Current Body Weight: 106 lb (48.1 kg) Admission Body Weight: 106 lb (48.1 kg) Usual Body Weight: 141 lb (64 kg) (over 1.5 yrs ago) [place] Body Weight: 120 lbs; % [place] Body Weight 88.3 % BMI: 18.2 Adjusted Body Weight: ; No Adjustment BMI Categories: Underweight (BMI less than 18.5) Nutrition Diagnosis: Swallowing difficulty related to cognitive or neurological impairment as evidenced by nutrition support - enteral nutrition Increased nutrient needs related to increase demand for energy/nutrients as evidenced by wounds Nutrition Interventions: Food and/or Nutrient Delivery: Continue NPO, Start Tube Feeding, Vitamin Supplement Nutrition Education/Counseling: No recommendation at this time Coordination of Nutrition Care: Continue to monitor while inpatient Goals: Pt will receive/tolerate optimal nutrition for wound healing needs Nutrition Monitoring and Evaluation: Behavioral-Environmental Outcomes: None Identified Food/Nutrient Intake Outcomes: Enteral Nutrition Intake/Tolerance Physical Signs/Symptoms Outcomes: Biochemical Data, GI Status, Fluid Status or Edema, Weight, Skin, Nutrition Focused Physical Findings Discharge Planning: Enteral Nutrition Contact: *[phone] documented in this encounter [facility] Work Phone: 10-06-2020 Hospital Discharg Bree Saenz RN - 10/06/2020 11:25 AM EDT Your physician has ordered skilled home care services for you. Your home care will be provided by: [facility] [phone] anice Macias, TUBE TESTER - WOVEN BLIND LOOM TENDER - 10/06/2020 1. Right ischium wound: Cleanse wound with saline. Apply nickel thick Santyl ointment to wound bed, cover with Dakin's moist kerlix packing and dry dressing documented in this encounter [facility] Work Phone: documented as of this encounter (statuses as of 08/23/2021) [facility] History of Past illness Narrative* Problem Noted Date Resolved Date Generalized convulsive epilepsy 08/24/2017 08/24/2017 documented as of this encounter (statuses as of 08/24/2021) [address] History of Past illness Narrative* Problem Noted Date Resolved Date Generalized convulsive epilepsy 08/24/2017 08/24/2017 documented as of this encounter (statuses as of 09/14/2021) [address] History of Past illness Narrative* Problem Noted Date Resolved Date Generalized convulsive epilepsy 08/24/2017 08/24/2017 documented as of this encounter (statuses as of 09/22/2021) [address] History of Past illness Narrative* Problem Noted Date Resolved Date Generalized convulsive epilepsy 08/24/2017 08/24/2017 documented as of this encounter (statuses as of 09/11/2022) [address] History of Past illness Narrative* Problem Noted Date Diagnosed Date Resolved Date Generalized convulsive epilepsy 08/24/2017 08/24/2017 documented as of this encounter (statuses as of 03/02/2023) [facility] Diagnosis Septicemia (HCC)- Primary Unspecified septicemia Pressure injury of right buttock, unstageable (HCC) Sepsis (HCC) documented in this encounter [facility] Work Phone: Evaluation note* Diagnosis Diarrhea, unspecified type- Primary documented in this encounter [facility] Work Phone: Evaluation note* Diagnosis Generalized convulsive epilepsy (HCC) Generalized convulsive epilepsy without mention of intractable epilepsy [facility] Diagnosis Generalized convulsive epilepsy (HCC) Generalized convulsive epilepsy without mention of intractable epilepsy documented in this encounter [facility] note* Diagnosis Allergic rhinitis, unspecified [facility] Diagnosis Spastic quadriplegia (CMS/HCC) (HCC)- Primary Unspecified quadriplegia [facility] Diagnosis Seborrhea capitis Seborrheic dermatitis, unspecified Vitamin D deficiency, unspecified Slow transit constipation [facility] Diagnosis Rett syndrome- Primary Other specified cerebral degenerations in childhood Generalized convulsive epilepsy with intractable epilepsy (CMS/HCC) (HCC) Generalized convulsive epilepsy with intractable epilepsy On antiepileptic therapy [facility] Diagnosis Slow transit constipation [facility] Diagnosis Rett syndrome Other specified cerebral degenerations in childhood Generalized convulsive epilepsy with intractable epilepsy (CMS/HCC) (HCC) Generalized convulsive epilepsy with intractable epilepsy [facility] Diagnosis Generalized convulsive epilepsy (HCC) Generalized convulsive epilepsy without mention of intractable epilepsy [facility] Diagnosis Generalized idiopathic epilepsy and epileptic syndromes, intractable, without status epilepticus (HCC) [facility] Diagnosis Generalized convulsive epilepsy with intractable epilepsy (CMS/HCC) (HCC)- Primary Generalized convulsive epilepsy with intractable epilepsy [facility] Diagnosis Rett syndrome Other specified cerebral degenerations in childhood Generalized convulsive epilepsy with intractable epilepsy (CMS/HCC) (HCC) Generalized convulsive epilepsy with intractable epilepsy [facility] Diagnosis Dermatitis, unspecified documented [facility] encounter [facility] [facility] Diagnosis Gastrostomy status (HCC) Gastrostomy status Other specified personal risk factors, not elsewhere classified [facility] Diagnosis Allergic rhinitis, unspecified [facility]* Diagnosis Dysphagia, oropharyngeal phase documented [facility]* Diagnosis Slow transit constipation [facility] Diagnosis Osteoporosis without current pathological fracture, unspecified osteoporosis type- Primary Vitamin D deficiency [facility] Diagnosis Generalized convulsive epilepsy (HCC) Generalized convulsive epilepsy without mention of intractable epilepsy documented in this encounter [facility] note* Diagnosis Generalized idiopathic epilepsy and epileptic syndromes, intractable, without status epilepticus (HCC) documented in this encounter [facility] Summary Purpose Family History No Family History Records FoundNo Family History Records FoundNo Family History Records FoundNo Family History Records FoundNo Family History Records FoundNo Family History Records FoundNo Family History Records Found Advance Directives Documents on File Type Date Recorded Patient Motion And Time Study Teacher Expl anation ACP-Advance Directive ACP-Power of Varnish Melter Helper Latest Code Status on File Code Status Date Activated Date Inactivated Comments Full Code 10/04/2020 8:10 PM Latest Code Status on File Code Status Date Activated Date Inactivated Comments Full Code 10/04/2020 8:10 PM 10/06/2020 6:02 PM Latest Code Status on File Code Status Date Activated Date Inactivated Comments Full Code 02/14/2021 1:12 AM 02/17/2021 6:16 PM Full Code 10/04/2020 8:10 PM 10/06/2020 6:02 PM Additional Source Comments INFORMATION SOURCE (unrecogn ized section and content) DATE CREATED AUTHOR AUTHOR'S ORGANIZ ATION 07/12/2018 [facility] DATE CREATED AUTHOR AUTHOR'S ORGANIZ ATION 10/22/2018 [facility] DATE CREATED AUTHOR AUTHOR'S ORGANIZ ATION 03/13/2020 [facility] DATE CREATED AUTHOR AUTHOR'S ORGANIZ ATION 09/23/2021 [facility] DATE CREATED AUTHOR AUTHOR'S ORGANIZ ATION 10/27/2021 [facility] DATE CREATED AUTHOR AUTHOR'S ORGANIZ ATION 04/11/2023 [facility] Reason for Visit (unrecogniz ed section and content) Reason Comments Diarrhea Reason Comments Refill Request Reason Onset Date Comments Refill Request 08/24/2021 Reason Comments Appointment Reason Onset Date Comments Orders 06/05/2022 [facility] flush Reason Onset Date Comments Orders 06/20/2022 Verbal orders to continue home nursing care Reason Onset Date Comments Medication Problem 06/10/2022 Double dose o f banzel Taken at 21:10 and then again at 21:40 Reason Comments Med Refill Reason Comments Follow-up Seizures Last seizure- 7 year s ago Reason Onset Date Comments Appointment 08/09/2022 Reason Onset Date Comments Care Coordination 09/15/2022 Reason Onset Date Comments Med Refill 09/20/2022 Reason Comments Seizures VNS interrogation re port Reason Onset Date Comments Orders 10/20/2022 [facility] Reason Onset Date Comments Orders 10/26/2022 [facility] Reason Onset Date Comments New Med Request 01/24/2023 Reason Comments Osteoporosis Reason Onset Date Comments Refill Request 07/28/2022 Ordered Prescriptions (unrec ognized section and content) Scheduled Active and Recently Administ ered Medications (unrecognized section and content) Continuous Medication Order 10/04/2020 10/05/2020 10/06/2020 lactated ringers infusion () Intravenous, at 50 mL/hr, CONTINUOUS, Starting on Sun10/04/20 at 2045, For 12 hours 2250 (New Bag - Provider: Jani Mckeon, RN) 1259 (Stopped - Provider: Angelique Powell RN) PRN Medication Order 10/04/2020 10/05/2020 10/06/2020 0.9 % sodium chloride infusion 25 mL, Intravenous, at 100 mL/hr, PRN, If patient receiving piggyback infusions without ordered maintenance IV fluids or with frequent/long duration piggyback infusions, Starting on Sun10/04/20 at 2001, Administer at the same rate as the piggyback being infused. acetaminophen (TYLENOL) suppository 650 mg(Linked Group 1) 650 mg, Rectal, EVERY 6 HOURS PRN, Pain Mild (1-3), Fever, For temp greater than 100.4 F (38 C), Starting on Sun10/04/20 at 2001, Administer if oral route cannot be used. acetaminophen (TYLENOL) tablet 650 mg(Linked Group 1) 650 mg, Oral, EVERY 6 HOURS PRN, Pain Mild (1-3), Fever, For temp greater than 100.4 F (38 C), Starting on Sun10/04/20 at 2001, Maximum dose of acetaminophen is 4000 mg from all sources in 24 hours. albuterol (PROVENTIL) nebulizer solution 2.5 mg 2.5 mg, Nebulization, EVERY 4 HOURS PRN, Wheezing, Starting on Sun10/04/20 at 1954 Loperamide HCl (IMODIUM) 2 MG/15ML solution 2 mg 2 mg, Per G Tube, 3 TIMES DAILY PRN, Diarrhea, Starting on Sun10/04/20 at 1956 ondansetron (ZOFRAN) injection 4 mg(Linked Group 2) 4 mg, Intravenous, EVERY 6 HOURS PRN, Nausea, Vomiting, Starting on Sun10/04/20 at 2001, Administer if oral route cannot be used. ondansetron (ZOFRAN-ODT) disintegrating tablet 4 mg(Linked Group 2) 4 mg, Oral, EVERY 8 HOURS PRN, Nausea, Vomiting, Starting on Sun10/04/20 at 2001 polyethylene glycol (GLYCOLAX) packet 17 g 17 g, Oral, DAILY PRN, Constipation, Starting on Sun10/04/20 at 2001, First line therapy for constipation sodium chloride flush 0.9 % injection 5-40 mL 5-40 mL, Intravenous, PRN, Line Care, After every IV line use, Starting on Sun10/04/20 at 2001, For Line Patency: Peripheral IV = 5 mL; Midline or Central Line = 10 mL/lumen. If following IV push medication, administer flush at same rate as the IV push. Flush volume is determined by type of infusion therapy being given. For non-viscous solutions use: Peripheral IV = 5 mL Midline or Central Line = 10 mL/lumen For viscous solutions (i.e. blood components, parenteral nutrition, contrast media, or after obtaining blood sample) use: Peripheral IV = 10 mL Midline or Central Line = 20 mL/lumen Linked Groups Order Group 1: acetaminophen (TYLENOL) tablet 650 mgJump to med 650 mg, Oral, EVERY 6 HOURS PRN, Pain Mild (1-3), Fever, For temp greater than 100.4 F (38 C), Starting on Sun10/04/20 at 2001
Maximum dose of acetaminophen is 4000 mg from all sources in 24 hours.
Or acetaminophen (TYLENOL) suppository 650 mgJump to med 650 mg, Rectal, EVERY 6 HOURS PRN, Pain Mild (1-3), Fever, For temp greater than 100.4 F (38 C), Starting on Sun10/04/20 at 2001
Administer if oral route cannot be used.
Group 2: ondansetron (ZOFRAN-ODT) disintegrating tablet 4 mgJump to med 4 mg, Oral, EVERY 8 HOURS PRN, Nausea, Vomiting, Starting on Sun10/04/20 at 2001 Or ondansetron (ZOFRAN) injection 4 mgJump to med 4 mg, Intravenous, EVERY 6 HOURS PRN, Nausea, Vomiting, Starting on Sun10/04/20 at 2001
Administer if oral route cannot be used.
Care Teams (unrecognized sec tion and content) Pony Worker Relationship Specialty Start Date End Date Misty Porter MD 55 [facility] [address] [place] [phone] PCP - General Internal Medicine 12/21/19 Pony Worker Relationship Specialty Start Date End Date Misty Porter MD [address] [address] PCP - General Internal Medicine 12/21/19 Pony Worker Relationship Specialty Start Date End Date Misty Porter MD [address] [phone] PCP - General Internal Medicine 12/21/19 Pony Worker Relationship Specialty Start Date End Date Lolis Crandall DO [address] [phone] PCP - General Family Medicine 07/14/21 Pony Worker Relationship Specialty Start Date End Date Misty Porter [address] [phone] PCP - General Family Practice 08/16/21 Pony Worker Relationship Specialty Start Date End Date Misty Porter [address] [phone] PCP - General Family Practice 08/16/21 Pony Worker Relationship Specialty Start Date End Date Lolis Crandall DO [address] [phone] PCP - General Family Medicine 07/14/21 Pony Worker Relationship Specialty Start Date End Date Misty Porter [address] [place], [place] [phone] PCP - General Family Practice 08/16/21 Pony Worker Relationship Specialty Start Date End Date Lolis Crandall DO [address] [place] [address] PCP - General Family Medicine 07/14/21 Pony Worker Relationship Specialty Start Date End Date Misty Porter [address] [place] [address] PCP - General Family Practice 08/16/21 Pony Worker Relationship Specialty Start Date End Date Lolis Crandall DO 55 [facility], [address] [place] [address] PCP - General Family Medicine 07/14/21 Pony Worker Relationship Specialty Start Date End Date Lolis Crandall DO 55 [facility], [address] [place] [address] PCP - General Family Medicine 07/14/21 Pony Worker Relationship Specialty Start Date End Date Lolis Crandall DO 55 [facility], [address] [place] [address] PCP - General Family Medicine 07/14/21 Chris Goff, [facility] [address] [place] [address] Pharmacist 11/01/21 Neri Mitchell, TUBE TESTER - WOVEN BLIND LOOM TENDER [address] [place] [phone] Nurse Practitioner Nurse Practitioner 04/12/22 Zahira Cedeno MD [address] [place], [place] [phone] Family Medicine 04/12/22 Pony Worker Relationship Specialty Start Date End Date Lolis Crandall DO 55 [facility], [address] [place] [address] PCP - General Family Medicine 07/14/21 Chris Goff, [facility] [address] [place] [address] Pharmacist 11/01/21 Neri Mitchell, TUBE TESTER - [employer]OVEN BLIND LOOM TENDER 75 [facility] [address] [place] [address] Nurse Practitioner Nurse Practitioner 04/12/22 Zahira Cedeno MD 75 [facility] [address] [place] [address] Family Medicine 04/12/22 Pony Worker Relationship Specialty Start Date End Date KiannaLolis corbett DO 55 [facility], [address] [place] [address] PCP - General Family Medicine 07/14/21 Chris Goff, [facility] [address] [place] [address] Pharmacist 11/01/21 Neri Mitchell, TUBE TESTER - [employer]OV[employer] BLIND LOOM TENDER 75 [facility] [address] [place] [phone] Nurse Practitioner Nurse Practitioner 04/12/22 Zahira Cedeno MD 75 [facility] [address] [place] [address] Family Medicine 04/12/22 Pony Worker Relationship Specialty Start Date End Date KiannaLolis corbett DO 55 [facility], [address] [place] [address] PCP - General Family Medicine 07/14/21 Chris Goff, [facility] [address] [place] [address] Pharmacist 11/01/21 Neri Mitchell TUBE TESTER - WOV[employer] BLIND LOOM TENDER 75 [facility] [address] [place] [address] Nurse Practitioner Nurse Practitioner 04/12/22 Zahira Cedeno MD [address] [facility] [address] [place] [address] Family Medicine 04/12/22 Pony Worker Relationship Specialty Start Date End Date Karley Lolis N, DO 55 [facility], [address] [place] [address] PCP - General Family Medicine 07/14/21 [facility] [address] [place] [address] Pharmacist 11/01/21 Neri Mitchell TUBE TESTER - WOVEN BLIND LOOM TENDER 75 [facility] [address] [place] [phone] Nurse Practitioner Nurse Practitioner 04/12/22 Zahira Cedeno MD 75 [facility] [address] [place] [address] Family Medicine 04/12/22 Pony Worker Relationship Specialty Start Date End Date KarleyLolis DO 55 [facility], [address] [place] [address] PCP - General Family Medicine 07/14/21 [facility] [address] [place] [address] Pharmacist 11/01/21 Neri Mitchell TUBE TESTER - WOV[employer] BLIND LOOM TENDER 75 [facility] [address] [place] [address] Nurse Practitioner Nurse Practitioner 04/12/22 Zahira Cedeno MD [address] [facility] [address] [place] [address] Family Medicine 04/12/22 Pony Worker Relationship Specialty Start Date End Date Lolis Crandall DO 55 [facility], [address] [place] [address] PCP - General Family Medicine 07/14/21 Chris Goff, [facility] [address] [place] [address] Pharmacist 11/01/21 Neri Mitchell, TUBE TESTER - WOVEN BLIND LOOM TENDER 75 [facility] [address] [place] [address] Nurse Practitioner Nurse Practitioner 04/12/22 Zahira Cedeno MD 75 [facility] [address] [place] [address] Family Medicine 04/12/22 Pony Worker Relationship Specialty Start Date End Date KiannaLolis corbett DO 55 [facility], [address] [place] [address] PCP - General Family Medicine 07/14/21 Chris Goff, [facility] [address] [place] [address] Pharmacist 11/01/21 Neri Mitchell, TUBE TESTER - WOV[employer] BLIND LOOM TENDER 75 [facility] [address] [place] [address] Nurse Practitioner Nurse Practitioner 04/12/22 Zahira Cedeno MD 75 [facility] [address] [place] [address] Family Medicine 04/12/22 Pony Worker Relationship Specialty Start Date End Date KiannaLolis corbett DO 55 [facility], [address] [place] [address] PCP - General Family Medicine 07/14/21 Chris Goff, [facility] [address] [place] [address] Pharmacist 11/01/21 Neri Mitchell APRN - WOVEN BLIND LOOM TENDER 75 [facility] [address] [place] [address] Nurse Practitioner Nurse Practitioner 04/12/22 Zahira Cedeno MD 75 [facility] [address] [place] [address] Family Medicine 04/12/22 Pony Worker Relationship Specialty Start Date End Date Lolis Crandall DO 55 [facility], [address] [place] [address] PCP - General Family Medicine 07/14/21 [facility] 55 [place] [address] Pharmacist 11/01/21 Neri Mitchell APRN - WOVEN BLIND LOOM TENDER 75 [facility] [address] [place] [address] Nurse Practitioner Nurse Practitioner 04/12/22 Zahira Cedeno MD 75 [facility] [address] [place] [address] Family Medicine 04/12/22 Pony Worker Relationship Specialty Start Date End Date Misty Porter PCP - General Family Medicine 08/16/21 Pony Worker Relationship Specialty Start Date End Date Lolis Crandall DO 55 [facility], [address] [place] [address] PCP - General Family Medicine 07/14/21 [facility] [address] [place] [address] Pharmacist 11/01/21 Neri Mitchell TUBE TESTER - WOV[employer] BLIND LOOM TENDER [address] [phone] Nurse Practitioner Nurse Practitioner 04/12/22 Zahira Cedeno MD [address] [phone] Family Medicine 04/12/22 Pony Worker Relationship Specialty Start Date End Date Lolis Crandall DO [address] [phone] PCP - General Family Medicine 07/14/21 Chris Goff [facility] [address] [place], [place] [phone] Pharmacist 11/01/21 Neri Mitchell APRN - [employer]OV[employer] BLIND LOOM TENDER [address] [phone] Nurse Practitioner Nurse Practitioner 04/12/22 Zahira Cedeno MD [address] [phone] Family Medicine 04/12/22 Pony Worker Relationship Specialty Start Date End Date Lolis Crandall DO [address] [phone] PCP - General Family Medicine 07/14/21 Chris Goff [facility] [address] [place], [place] [phone] Pharmacist 11/01/21 Neri Mitchell APRN - WOVEN BLIND LOOM TENDER [address] [address] Nurse Practitioner Nurse Practitioner 04/12/22 Zahira Cedeno MD 75 [facility] [address], [place] [phone] Family Medicine 04/12/22 Pony Worker Relationship Specialty Start Date End Date Lolis Crandall DO 55 [facility] [address] [place] [phone] PCP - General Family Medicine 07/14/21 Chris Goff [facility] [address] [place], [place] [phone] Pharmacist 11/01/21 Nrei Mitchell APRN - WOVEN BLIND LOOM TENDER [address] [place] [phone] Nurse Practitioner Nurse Practitioner 04/12/22 Zahira Cedeno MD 75 [facility] [address], [place] [phone] Family Medicine 04/12/22 Pony Worker Relationship Specialty Start Date End Date Lolis Crandall DO 55 [facility] [address] [place] [address] PCP - General Family Medicine 07/14/21 Chris Goff [facility] 55 [place] [address] Pharmacist 11/01/21 Neri Mitchell TUBE TESTER - WOVEN BLIND LOOM TENDER 75 [facility] [address] [place] [phone] Nurse Practitioner Nurse Practitioner 04/12/22 Zahira Cedeno MD 75 [facility] [address], [place] [phone] Family Medicine 04/12/22 Pony Worker Relationship Specialty Start Date End Date Lolis Crandall DO 55 [facility] [address] [place] [address] PCP - General Family Medicine 07/14/21 Chris Goff [facility] [address] [place] [address] Pharmacist 11/01/21 Neri Mitchell TUBE TESTER - WOVEN BLIND LOOM TENDER 75 [facility] [address] [phone] Nurse Practitioner Nurse Practitioner 04/12/22 Zahira Cedeno MD [address] [phone] Family Medicine 04/12/22 Pony Worker Relationship Specialty Start Date End Date Lolis Crandall DO [address] [place] [address] PCP - General Family Medicine 07/14/21 Chris Goff [facility] [address] [place] [address] Pharmacist 11/01/21 Neri Mitchell TUBE TESTER - WOVEN BLIND LOOM TENDER 75 [facility] [address] [phone] Nurse Practitioner Nurse Practitioner 04/12/22 Zahira Cedeno MD 75 [facility] [address], [place] [phone] Family Medicine 04/12/22 Pony Worker Relationship Specialty Start Date End Date Lolis Crandall DO [address] [address] PCP - General Family Medicine 07/14/21 Chris Goff [facility] [address] [place] [address] Pharmacist 11/01/21 Neri Mitchell TUBE TESTER - WOVEN BLIND LOOM TENDER [address] [phone] Nurse Practitioner Nurse Practitioner 04/12/22 Zahira Cedeno MD [address] [phone] Family Medicine 04/12/22 Pony Worker Relationship Specialty Start Date End Date Lolis Crandall DO [address] [address] PCP - General Family Medicine 07/14/21 Chris Goff [facility] [address] [place] [address] Pharmacist 11/01/21 Neri Mitchell TUBE TESTER - WOVEN BLIND LOOM TENDER [address] [phone] Nurse Practitioner Nurse Practitioner 04/12/22 Zahira Cedeno MD [address] [phone] Family Medicine 04/12/22 Pony Worker Relationship Specialty Start Date End Date Misty Porter MD PCP - General Family Medicine 08/16/21 Pony Worker Relationship Specialty Start Date End Date Misty Porter MD PCP - General Family Medicine 08/16/21 Pony Worker Relationship Specialty Start Date End Date Karley Lolis Francis DO 55 [facility], [address] [place] [address] PCP - General Family Medicine 07/14/21 [facility] [address] [place], [place] [phone] Pharmacist 11/01/21 Neri Mitchell APRN - LAURIE 75 [facility] [address] [place] [address] Nurse Practitioner Nurse Practitioner 04/12/22 Zahira Cedeno MD [address] [address] Family Medicine 04/12/22 Source Comments (unrecognize d section and content) In the event this informatio n is protected by the Federal Confidentiality of Alcohol and Drug Abuse Patient Records regulations: The Federal rules restrict any use of the information to criminally investigate or prosecute any alcohol or drug abuse patient.[facility] the event this information is protected by the Federal Confidentiality of Alcohol and Drug Abuse Patient Records regulations: The Federal rules restrict any use of the information to criminally investigate or prosecute any alcohol or drug abuse patient.[facility] the event this information is protected by the Federal Confidentiality of Alcohol and Drug Abuse Patient Records regulations: The Federal rules restrict any use of the information to criminally investigate or prosecute any alcohol or drug abuse patient.[facility] the event this information is protected by the Federal Confidentiality of Alcohol and Drug Abuse Patient Records regulations: The Federal rules restrict any use of the information to criminally investigate or prosecute any alcohol or drug abuse patient.[facility] the event this information is protected by the Federal Confidentiality of Alcohol and Drug Abuse Patient Records regulations: The Federal rules restrict any use of the information to criminally investigate or prosecute any alcohol or drug abuse patient.[facility] the event this information is protected by the Federal Confidentiality of Alcohol and Drug Abuse Patient Records regulations: The Federal rules restrict any use of the information to criminally investigate or prosecute any alcohol or drug abuse patient.[facility] the event this information is protected by the Federal Confidentiality of Alcohol and Drug Abuse Patient Records regulations: The Federal rules restrict any use of the information to criminally investigate or prosecute any alcohol or drug abuse patient.[facility] FOR RECORDS PERTAINING TO PATIENTS WHO ARE OR HAVE BEEN ENROLLED IN A CHEMICAL DEPENDENCY/SUBSTANCEABUSE PROGRAM, SOME INFORMATION MAY BE OMITTED. This clinical summary was aggregated from multiple sources. Caution should be exercised in using it in the provision of clinical care. This summary normalizes information from multiple sources, and as a consequence, information in this document may materially change the coding, format and clinical context of patient data. In addition, data may be omitted in some cases. CLINICAL DECISIONS SHOULD BE BASED ON THE PRIMARY CLINICAL RECORDS. [facility]. provides no warranty or guarantee of the accuracy or completeness of information in this document.
[2023-04-19 09:16] LABS: Anion Gap 1 (5-15); BUN 29 mg/dL (7-18); BUN/Creat Ratio 142.2 RATIO (10-20); Calcium,Total 9.7 mg/dL (8.5-10.1); Chloride 106 mmol/L (98-107); EST Glomerular Filtration Rate 431 mL/min (>60); Est Glom Filt Rate - Afr Amer 521 mL/min (>60); Glucose 95 mg/dL (74-106); Potassium 3.8 mmol/L (3.5-5.1); Sodium Level 138 mmol/L (136-145)
[2023-04-19 09:21] LABS: Vitamin D,25 Hydroxy 57.1 ng/mL
== END | disposition home or self-care (01) ==
LOC: LAB 04:26
PROVIDERS: Visit Provider Internal Medicine Endocrinology, Diabetes & Metabolism
DX: M81.0 Age-related osteoporosis without current pathological fracture (principal)
CPT/HCPCS: 36415; 80048; 82306

== ENCOUNTER → 2023-05-11 | Outpatient (CLI) | payer MEDICAID, SELFPAY ==
[2023-05-11 10:03] LABS: Hematocrit 39.4 % (37-47); Hemoglobin 12.5 g/dL (12.0-15.0); Mean Corp Hgb Conc 31.7 g/dL (32-36); Mean Corpuscular Hgb 30.9 pg (27.0-32.0); Mean Corpuscular Volume 97.3 fL (81-99); Mean Platelet Vol. 9.1 fl (6.2-12.0); Platelet Count 236 K/mm3 (150-450); RBC Distribution Width CV 13.2 % (11.6-14.6); RBC Distribution Width SD 47.7 fl (35.1-43.9); Red Blood Count 4.05 M/mm3 (4.2-5.4); White Blood Count 15.1 K/mm3 (4.4-11.0)
[2023-05-11 10:15] LABS: ALB/GLOB Ratio 0.4 RATIO (0.9-2.4); AST(SGOT) 15 U/L (15-37); Alanine Aminotransfer ALT/SGPT 13 U/L (13-56); Albumin, Serum 1.8 g/dL (3.2-5.0); Alkaline Phosphatase 86 U/L (45-117); Anion Gap 6 (5-15); BUN 21 mg/dL (7-18); BUN/Creat Ratio 76.4 RATIO (10-20); Calcium,Total 9.2 mg/dL (8.5-10.1); Chloride 107 mmol/L (98-107); Creatinine, Serum 0.28 mg/dL (0.55-1.02); EST Glomerular Filtration Rate 305 mL/min (>60); Est Glom Filt Rate - Afr Amer 369 mL/min (>60); Globulin 4.9 g/dL (2.2-4.2); Glucose 97 mg/dL (74-106); Potassium 2.7 mmol/L (3.5-5.1); Protein, Total 6.7 g/dL (6.4-8.2); Sodium Level 143 mmol/L (136-145)
== END | disposition home or self-care (01) ==
LOC: LAB 09:24
DX: J69.0 Pneumonitis due to inhalation of food and vomit (principal)
CPT/HCPCS: 36415; 80053; 85027

== ENCOUNTER → 2023-05-17 | Outpatient (CLI) | payer MEDICAID, SELFPAY ==
--- OUTSIDE RECORDS SUMMARY | 2023-05-17 05:43 | XMS RPT_ITS | CCD ---
Author Name Unknown Address [address] [place] [address] Organization [facility] Care Team Providers Care Molecular Genetic Pathologist Name Role Phone SANTOS KELSEY Unavailable Unavailable IMCA Referring Unavailable IMCA Primary Care Unavailable Parish Leonard Primary Care Provider Misty Porter Primary Care Provider Misty Porter MD Primary Care Provider Misty Porter MD Primary Care Provider Teagarden DO, Lolis N Primary Care Provider Misty Porter Primary Care Provider Teagarden DO, Lolis N Primary Care Provider [phone] Teagarden DO, Lolis N Primary Care Provider [phone] Teagarden DO, Lolis N Primary Care Provider Shell Chris call Unavailable Stephen PRATER - Neri SULLIVAN Unavailable Zahira Cedeno MD Unavailable Misty Porter Primary Care Provider Teagarden DO, Lolis N Primary Care Provider [phone] Shell Chris call Unavailable Stephen PRATER - LAURIE, Neri Unavailable Zahira Cedeno MD Unavailable Misty Porter MD Primary Care Provider Zahira Cedeno MD Unavailable SANTOS BELLO Attending Unavailable TEAGARDEN, LOLIS Primary Care Unavailable TEAGARDEN, LOLIS Primary Care Unavailable STEWART BLANCO Attending Unavailable WALKER, NERI Attending Unavailable TEAGARDEN, LOLIS Primary Care Unavailable NERI VARGAS Attending Unavailable TEAGARDEN, LOLIS Primary Care Unavailable DEAN JONES Attending Unavailable TEAGARDEN, LOLIS Primary Care Unavailable SALESANTOS Lobo Attending Unavailable TEAGARDEN, LOLIS Primary Care Unavailable TEAGARDEN, LOLIS Attending Unavailable TEAGARDEN, LOLIS Primary Care Unavailable Allergies Allergy Classification Reported Allergen(s) Allergy [...] to adverse reactions (disorder) 11-28-19 12 Hives [facility] Repository (20 sources) doxycycline; Translations: [DOXYCYCLINE] Drug Allergy 09-14-19 18 Nausea And Vomiting, Vomiting [facility] Repository (9 sources) HYDROmorphone; Translations: [HYDROMORPHONE (BULK)] Drug Allergy 11-28-19 12 Other: See Comments [facility] Rep[facility] (20 sources) Latex; Translations: [LATEX] Propensity to adverse reactions to drug (disorder) 04-14-19 10 Hives, Rash [facility] Rep[facility] (20 sources) morphine; Translations: [MORPHINE] Drug Allergy 11-28-19 12 Other (See Comments), Shortness of Breath [facility] Rep[facility] (9 sources) NITROFURANTOIN MONOHYD/M-CRYST; Translations: [NITROFURANTOIN MONOHYD/M-CRYST] Propensity to adverse reactions to drug (disorder) 09-14-19 18 Vomiting [facility] (9 sources) OPIOIDS - MORPHINE ANALOGUES; Translations: [OPIOIDS - MORPHINE ANALOGUES] Propensity to adverse reactions to drug (disorder) 01-25-20 12 Other: See Comments [facility] Rep[facility] (20 sources) Adhesive Tape Propensity to adverse reactions to drug 11-28-19 [place], [place] (20 sources) HYDROmorphone Drug Allergy 11-28-19 12 Other (See Comments) [place], [place] (20 sources) Nitrofurantoin Drug Allergy 09-14-19 18 Nausea And Vomiting [place], [place] (20 sources) Wound Dressing Adhesive Propensity to adverse reactions to drug 11-28-19 Rash, [place], [place] Medications Current Medications Medication Drug Class(es) [...] Inflammatory dermatosis; Translations: [Dermatitis, unspecified] 12-22-2022 Episodic Aspiration pneumonitis; food/vomitus (20 sources) Aspiration pneumonia; Translations: [Pneumonitis due to inhalation of food and vomit] Onset: 0 Resolved: 1 11-12-2019 Episodic Asthma (20 sources) Moderate persistent asthma; [...] disease without esophagitis] Onset: 0 04-19-2022 Chronic Fluid and electrolyte disorders (4 sources) Hypokalemia; Translations: [Hypokalemia] Onset: 4 05-11-2023 Episodic Genitourinary symptoms and ill-defined conditions (20 sources) [...] examination without abnormal findings] Onset: 8 Episodic Nausea and vomiting (3 sources) Nausea and vomiting; Translations: [Nausea with vomiting, unspecified] Onset: 4 05-07-2023 Episodic Nutritional deficiencies (4 sources) Vitamin D [...] [Gastrostomy status] Onset: 8 02-14-2021 Chronic Other inflammatory condition of skin (1 [...] Classification Problem Date Documented Da te Episodic/Chronic Blindness and vision defects (20 sources) Astigmatism; [...] (20 sources) Drug therapy finding; Translations: [Other intermediate (current) drug therapy] Onset: 07-26-2022 Episodic Other aftercare (2 sources) Other intermediate (current) drug therapy; Translations: [Other intermediate (current) drug therapy] Onset: 07-26-2022 Episodic Other [...] 07-02-2012 Resolved: 04-19-2022 Episodic Other gastrointestinal disorders (15 sources) Slow transit constipation; Translations: [Slow transit constipation] Onset: 10-11-2022 Episodic Other gastrointestinal disorders (1 source) Slow [...] Date Time Vital Sign Value Performing Clinician Faci lity 05-11-2023 21:32-0500 Diastolic blood pressure 72 mm[Hg] Stewart Blanco MD Work Phone: [facility] 05-11-2023 21:32-0500 Heart rate 88 /min Stewart Blanco MD Work Phone: [facility] 05-11-2023 21:32-0500 Respiratory rate 26 /min Stewart Blanco MD Work Phone: [facility] 05-11-2023 21:32-0500 SaO2% (BldA) [Mass fraction] 98 % Stewart Blanco MD Work Phone: [facility] [employer] 05-11-2023 21:32-0500 Systolic blood pressure 108 mm[Hg] Stewart Blanco MD Work Phone: [facility] [employer] 05-11-2023 13:28-0500 Body height 162.6 cm Stewart Blanco MD Work Phone: [facility] [employer] 05-11-2023 13:28-0500 Body mass index (BMI) [Ratio] 25.58 kg/m2 Stewart Blanco MD Work Phone: [facility] [employer] 05-11-2023 13:28-0500 Body temperature 98.71 [degF] Stewart Blanco MD Work Phone: [facility] [employer] 05-11-2023 13:28-0500 Body weight 67.59 kg Stewart Blanco MD Work Phone: [facility] [employer] 07-26-2022 14:21-0400 Body height 162.6 cm Dean Zackery SALES REPRESENTATIVE GRAPHIC ART - MIXING TANK OPERATOR Work Phone: [facility] [employer] 07-26-2022 14:21-0400 Body mass index (BMI) [Ratio] 25.58 kg/m2 Dean Zackery SALES REPRESENTATIVE GRAPHIC ART - MIXING TANK OPERATOR Work Phone: [facility] [employer] 07-26-2022 14:21-0400 Body weight 67.59 kg Dean Zackery SALES REPRESENTATIVE GRAPHIC ART - MIXING TANK OPERATOR Work Phone: [facility] [employer] 10-08-2020 17:31-0400 Diastolic blood pressure 84 mm[Hg] Bharat Baez MD Work Phone: [facility] Work Phone: 10-08-2020 17:31-0400 Heart rate 115 /min Bharat Baez MD Work Phone: [facility] Work Phone: 10-08-2020 17:31-0400 Respiratory rate 20 /min Bharat Baez MD Work Phone: [facility] Work Phone: 10-08-2020 17:31-0400 SaO2% (BldA) [Mass [...] 162.6 cm DELORIS Oliva MD Work Phone: [facility] Work Phone: 10-05-2020 06:04-0400 Body mass index (BMI) [Ratio] 18.23 kg/m2 DELORIS Oliva MD Work Phone: [facility] Work Phone: 10-05-2020 06:04-0400 Body weight 48.17 kg DELORIS Oliva MD Work Phone: [facility] Work Phone: Encounters Encounter Date Encounter Type Care Provider Facility Start: 05-11-2023 End: 05-12-2023 Emergency department patient visit LOLIS TORRES [facility] Start: 05-11-2023 End: 05-11-2023 Emergency department patient visit Stewart Blanco MD Work Phone: [facility] ED Procedures Date Procedure Procedure Detail Performing Clinician Start: 05-11-2023 Ct angiography chest w/contrast/noncontrast Stewart Blanco MD Work Phone: Start: 05-11-2023 Urinalysis complete panel - Urine Stewart Blanco MD Work Phone: Start: 05-11-2023 Urnls dip stick/tablet reagent auto microscopy Stewart Blanco MD Work Phone: Start: 05-11-2023 Radiologic exam chest single view Stewart Blanco MD Work Phone: Start: 05-11-2023 SARS-COV-2, FLU A/B, AND RSV COMBO Stewart Blanco MD Work Phone: Start: 05-11-2023 POCT VENOUS BLOOD GAS UNSOLICITED RESULTS Stewart Blanco MD Work Phone: Start: 05-11-2023 Bacteria identified in Blood by Culture Stewart Blanco MD Work Phone: Start: 05-11-2023 Comprehensive metabolic panel Stewart Blanco MD Work Phone: Start: 05-11-2023 Manual differential performed [Presence] in Blood Stewart Blanco MD Work Phone: Start: 05-11-2023 Ecg routine ecg w/least 12 lds trcg only w/o i&r Stewart Blanco MD Work Phone: Start: 08-10-2022 Follow-up visit Follow-up SANTOS BELLO Start: 07-05-2021 Cul prsmptv pthgnc organism scrn w/colony estimj Edelmira Lopez SALES REPRESENTATIVE GRAPHIC ART - MIXING TANK OPERATOR Work Phone: Start: 10-06-2020 End: 10-06-2020 Assay of magnesium Janice Herrera SALES REPRESENTATIVE GRAPHIC ART - MIXING TANK OPERATOR Work Phone: Start: 10-06-2020 BASIC METABOLIC PANEL W/ REFLEX TO MG FOR LOW K Janice Herrera SALES REPRESENTATIVE GRAPHIC ART - MIXING TANK OPERATOR Work Phone: Start: 10-05-2020 Drug screen quantitative [...] 10-04-2020 Basic metabolic panel calcium total Bree Lalo SALES REPRESENTATIVE GRAPHIC ART - MIXING TANK OPERATOR Work Phone: Start: 08-26-2007 H/O: gastrostomy Gastrostomy status Misty Porter MD Work Phone: H/O: gastrostomy Gastrostomy [facility] ([facility]) Lolis Torres DO Work Phone: Plan of Treatment Date Care Activity Detail Author Start: 2057 Pneumococcal 0-64 ye ars Vaccine (2 of 2 - PPSV23) Pneumococcal 0-64 years Vaccine (2 of 2 - PPSV23) [facility] Start: 2052 RSV Immunization age d 60 or older (1 - 1-dose 60+ series) RSV Immunization aged 60 or older (1 - 1-dose 60+ series) [facility] Start: 2042 Zoster Vaccines (1 of 2) Zoster Vacc anastacia (1 of 2) [facility] Start: 11-25-2029 Screening for malign ant neoplasm of cervix Pap smear [facility] Immunizations Immunization Date Immunization Notes Care Provider Josue [email or web address] 12-20-2015 influenza, injectabl e, quadrivalent, preservative free Negrita [place] Franken SALES REPRESENTATIVE GRAPHIC ART.MIXING TANK OPERATOR Work Phone: [facility] 12-20-2015 influenza virus vacc ine, unspecified formulation Licha Mullen RN [facility] 12-22-2013 influenza, seasonal, injectable Negrita [place] SALES REPRESENTATIVE GRAPHIC ART.MIXING TANK OPERATOR Work Phone: [facility] 01-15-2013 influenza virus vacc ine, whole virus Negrita [place] SALES REPRESENTATIVE GRAPHIC ART.MIXING TANK OPERATOR Work Phone: [facility] 12-26-2011 influenza, seasonal, injectable, preservative free Negrita [place] SALES REPRESENTATIVE GRAPHIC ART.MIXING TANK OPERATOR Work Phone: [facility] 12-23-2011 influenza, injectabl e, quadrivalent, preservative free Negrita [place] SALES REPRESENTATIVE GRAPHIC ART.MIXING TANK OPERATOR Work Phone: [facility] 02-20-2011 influenza virus vacc ine, whole virus Negrita [place] SALES REPRESENTATIVE GRAPHIC ART.MIXING TANK OPERATOR Work Phone: [facility] 02-07-2010 influenza, seasonal, injectable Negrita [place] SALES REPRESENTATIVE GRAPHIC ART.MIXING TANK OPERATOR Work Phone: [facility] 01-31-2010 meningococcal polysaccharide (groups A, C, Y and W-135) diphtheria toxoid conjugate vaccine (MCV4P) [facility] [place] 01-31-2010 TD(adult) unspecifie d formulation [facility] [place] 01-31-2010 tetanus and diphther ia toxoids, adsorbed, preservative free, for adult use (2 Lf of tetanus toxoid and 2 Lf of diphtheria toxoid) [facility] [place] 01-18-2010 influenza, seasonal, injectable Negrita [place] SALES REPRESENTATIVE GRAPHIC ART.MIXING TANK OPERATOR Work Phone: [facility] 01-25-2009 novel influenza-H1N1 -09, preservative-free, injectable Negrita [place] SALES REPRESENTATIVE GRAPHIC ART.MIXING TANK OPERATOR Work Phone: [facility] 01-25-2009 pneumococcal polysaccharide vaccine, 23 valent [facility], [place] 01-18-2009 influenza, seasonal, injectable Negrita [place] SALES REPRESENTATIVE GRAPHIC ART.MIXING TANK OPERATOR Work Phone: [facility] 02-03-2008 influenza, seasonal, injectable Negrita [place] SALES REPRESENTATIVE GRAPHIC ART.MIXING TANK OPERATOR Work Phone: [facility] 01-29-2006 influenza, seasonal, injectable Negrita [place] SALES REPRESENTATIVE GRAPHIC ART.MIXING TANK OPERATOR Work Phone: [facility] 02-06-2005 influenza virus vacc ine, whole virus Negrita [place] SALES REPRESENTATIVE GRAPHIC ART.MIXING TANK OPERATOR Work Phone: [facility] 02-04-2004 influenza, seasonal, injectable Negrita [place] SALES REPRESENTATIVE GRAPHIC ART.MIXING TANK OPERATOR Work Phone: [facility] 01-12-2003 influenza, seasonal, injectable Negrita [place] SALES REPRESENTATIVE GRAPHIC ART.MIXING TANK OPERATOR Work Phone: [facility] 01-10-2002 influenza, seasonal, injectable Negrita [place] SALES REPRESENTATIVE GRAPHIC ART.MIXING TANK OPERATOR Work Phone: [facility] 01-10-2002 pneumococcal polysaccharide vaccine, 23 valent [facility] [place] 10-30-1997 measles, mumps and rubella virus vaccine [facility] [place] 07-28-1997 diphtheria, tetanus toxoids and acellular pertussis vaccine [facility], [place] 07-28-1997 diphtheria, tetanus toxoids and acellular pertussis vaccine, unspecified formulation Negrita [place]en SALES REPRESENTATIVE GRAPHIC ART.MIXING TANK OPERATOR Work Phone: [facility] 07-28-1997 poliovirus vaccine, inactivated [facility], [place] 03-05-1995 diphtheria, tetanus toxoids and acellular pertussis vaccine [facility], [place] 03-05-1995 diphtheria, tetanus toxoids and acellular pertussis vaccine, unspecified formulation Negrita [place]en SALES REPRESENTATIVE GRAPHIC ART.MIXING TANK OPERATOR Work Phone: [facility] 10-19-1993 haemophilus influenz ae type b vaccine, PRP-T conjugate [facility], [place] 10-19-1993 measles, mumps and rubella virus vaccine [facility], [place] 10-19-1993 poliovirus vaccine, inactivated [facility], [place] 01-20-1993 diphtheria, tetanus toxoids and acellular pertussis vaccine [facility], [place] 01-20-1993 diphtheria, tetanus toxoids and acellular pertussis vaccine, unspecified formulation Negrita New [place]en SALES REPRESENTATIVE GRAPHIC ART.MIXING TANK OPERATOR Work Phone: [facility] 01-20-1993 haemophilus influenz ae type b conjugate and Hepatitis B vaccine [facility], [place] 1992 diphtheria, tetanus toxoids and acellular pertussis vaccine [place], [place] 1992 diphtheria, tetanus toxoids and acellular pertussis vaccine, unspecified formulation Negrita New [place]en SALES REPRESENTATIVE GRAPHIC ART.MIXING TANK OPERATOR Work Phone: [facility] 1992 haemophilus influenz ae type b vaccine, PRP-T conjugate [facility], [place] 1992 poliovirus vaccine, inactivated [facility], [place] 1992 diphtheria, tetanus toxoids and acellular pertussis vaccine [facility], [place] 1992 diphtheria, tetanus toxoids and acellular pertussis vaccine, unspecified formulation Negrita [place]en SALES REPRESENTATIVE GRAPHIC ART.MIXING TANK OPERATOR Work Phone: [facility] 1992 haemophilus influenz ae type b conjugate and Hepatitis B vaccine [facility], [place] 1992 poliovirus vaccine, inactivated [facility], [place] 1992 hepatitis B vaccine, pediatric or pediatric/adolescent dosage Negrita New Franken SALES REPRESENTATIVE GRAPHIC ART.MIXING TANK OPERATOR Work Phone: [facility] Payers Date Payer Category Payer Unknown [facility] D[facility]AL [id number] 2018-Present [phone] [address] [place] [address] Dental [id number] 2014 Medicaid [id number] 2011 Medicaid [id number] 2011 Medicaid [id number] 1990 Unknown [id number] Social History Date Type Detail Facility Tobacco smoking stat us RIIS Unknown if ever smoked [facility] Start: 1990 Sex Assigned At Not on file [facility] Start: 07-02-2012 End: 07-21-2020 Tobacco smoking status RIIS Never smoker [facility] Start: 07-02-2012 End: 07-21-2020 Tobacco use and exposure Never used [facility] Start: 10-06-2020 End: 04-07-2023 Alcohol intake Lifetime non-drinker (finding) [facility] Work Phone: Start: 10-04-2020 History SDOH Alcohol Frequency 1 [facility] [employer] Phone: Start: 08-06-2021 End: 10-11-2022 Exposure to SARS-CoV-2 (event) Not sure [facility] Start: 03-09-2020 Alcohol intake Current non-dr cupola tapper of alcohol (finding) [facility] Start: 1990 Sex Assigned At Female S [facility] Start: 07-16-2022 End: 08-10-2022 Exposure to SARS-CoV-2 (event) Unable to assess [facility] History of tobacco use Passive smoker [facility] Work Phone: Start: 07-26-2022 End: 05-10-2023 History of Social function [facility] Start: 07-26-2022 End: 05-10-2023 Tobacco use panel [facility] Start: 01-25-2022 Gender identity Identifies as female gender (finding) [facility] National Score (1-100), lower number is lower risk 67 [facility] Medical Equipment Procedure Code Equipment Code Equipment Origin al Text Equipment Identifier Dates 1 each by Does n ot apply route daily [id number] Start: 04-22-2021 1 EACH BY DOES N OT APPLY ROUTE DAILY [id number] Start: 02-23-2022 End: 03-17-2023 1 EACH BY DOES N OT APPLY ROUTE DAILY [id number] Start: 03-01-2023 End: 02-27-2024 Clinical Notes 08-24-2017 to 05-11-2023 Felicia Day RN - 05/11/2023 11:33 PM Ashish Day RN - 05/11/2023 11:33 PM Ashish Day RN - 05/11/2023 8:41 PM Ashish Day RN - 05/11/2023 8:20 PM ESTDischarge InstructionsAttachments Note Date & Type Note Facility 05-11-2023 Emergency department Note Assisted patients mother with brief change & linen change before patient discharge. Assisted transferring patient into pts own wheelchair for transport home. Felicia Day RN 05/11/232333 [facility] 05-11-2023 Emergency department Note Assisted patients mother with brief change & linen change before patient discharge. Assisted transferring patient into pts own wheelchair for transport home. Felicia Day RN 05/11/232333 CT notified that patient has a new IV and is ready for CT Felicia Day RN 05/11/232041 Pt taken to CT & process controls technician states that IV in her forearm is not in the arm. Pt sent back from CT to have another ultrasound line placed due to need for CT. Ishan ESPINOZA notified of need for ultrasound line Felicia Day RN 05/11/232038 Felicia Day RN 05/11/232040 Pt presents with EMS from home with mom. Pt with trach and was resently diagnosed with aspiration pneumonia. Pt on antibiotics. Per mother patient was strugling more today with breathing so decided to bring her in. 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 Unable to assess patient with questions Anne Chandra RN 05/11/231330 Anne Chandra RN 05/11/231331 EMERGENCY DEPARTMENT ENCOUNTER Pt Name: Eveline Saavedra Birthdate 1990 Date of evaluation: 05/11/2023 ED Provider: Stewart Blanco MD CHIEF COMPLAINT No chief complaint on file. HISTORY OF PRESENT ILLNESS (Location/Symptom, Timing/Onset, Context/Setting, Quality, Duration, Modifying Factors, Severity) Note limiting factors. I wore appropriate PPE for the entirety of this encounter. HPI Eveline Saavedra is a 32 y.o. who presents to the emergency department with chief complaint of shallow breathing. 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 She is on 3 L nasal cannula at all times at home. Mom states recently she has been constipated and ended up vomiting and mom is concerned that she aspirated. She states that he had an outpatient x-ray done that showed developing pneumonia she was started on Cipro but still not improving having fevers so started on Augmentin as well. She is now having loose stools secondary to the antibiotics but her belly is not distended per the mom. Mom states her urine is not foul-smelling. Mom is most concerned that she is pneumonia and she is it was also told she had hypokalemia on outpatient labs done. History of seizures neurogenic bladder with indwelling Poe catheter. No history of heart disease or blood clots or recent surgeries no reported increased leg swelling. Nursing Notes were reviewed. Limitations to history: Nonverbal Outside historians: Parent REVIEW OF SYSTEMS Review of Systems Constitutional: Positive for fever. Respiratory: Positive for shortness of breath. Gastrointestinal: Positive for constipation, diarrhea and vomiting. Negative for abdominal pain. Skin: Negative for rash. Neurological: Positive for seizures. All other systems reviewed and are negative. Pertinent positives and negatives as per HPI. PAST MEDICAL HISTORY Past Medical History: Diagnosis Date Brittle bones Cellulitis 02/14/2021 Decubitus ulcer GERD (gastroesophageal reflux disease) History of femur fracture 04/23/2020 left History of nephrolithiasis 04/23/2020 Indwelling Poe catheter present 12/01/2020 Kidney stones Neurogenic bladder 11/12/2019 Osteoporosis Pressure injury of right buttock, unstageable (HCC) 10/05/2020 Rett syndrome Scoliosis Seizure ([facility]) Urinary tract infection associated with indwelling urethral catheter ([facility]) 12/01/2020 SURGICAL HISTORY Past Surgical History: Procedure Laterality Date GASTROSTOMY TUBE PLACEMENT SPINAL FIXATION SURGERY W/ IMPLANT TRACHEOSTOMY VAGUS NERVE STIMULATOR INSERTION CURRENT MEDICATIONS Previous Medications ACETAMINOPHEN (TYLENOL CHILDREN'S) 160 MG/5ML SUSPENSION Take 22.5 mL (720 mg) by mouth every 6 hours as needed for mild pain (1-3), moderate pain (4-6) or fever. No more than 4 doses in a 24 hour period. ACETAMINOPHEN (TYLENOL) 500 MG TABLET TAKE 1 AND 1/2 TABLETS VIA GTUBE EVERY 4 HOURS NEEDED FOR PAIN. DO NOT EXCEED 4 DOSES ALBUTEROL (2.5 MG/3ML) 0.083% NEBULIZER SOLUTION USE 1 VIAL VIA NEBULIZER DIRECTED EVERY 4 HOURS NEEDED AMOXICILLIN-CLAVULANATE (AUGMENTIN) 875-125 MG TABLET Take 1 tablet by mouth 2 times daily for 10 days. BANZEL 400 MG TABLET TAKE 2 TABLETS BY MOUTH 4 TIMES DAILY BETAMETHASONE VALERATE (VALISONE) 0.1 % LOTION apply 5 milliliters to affected area 2 TIMES A WEEK, WHEN NEEDED FOR RASH BISACODYL (DULCOLAX) 10 MG SUPPOSITORY Insert 1 suppository (10 mg) into the rectum daily. CETIRIZINE (ZYRTEC) 1 MG/ML SYRUP 10 mL (10 mg) by Per G Tube route daily. CIPROFLOXACIN (CIPRO) 500 MG TABLET 1 tablet (500 mg) by Per G Tube route 2 times daily for 10 days. COLLAGENASE (SANTYL) 250 UNIT/GM OINTMENT APPLY OINTMENT TOPICALLY TO WOUND DIRECTED CONTROL GEL FORMULA DRESSING (DUODERM CGF BORDER) MISC Apply to open wound and change every 7 days. Size: 10 x 10 cm D-NEAL PEDIATRIC 10 MCG/ML LIQUID TAKE 5 ML BY MOUTH (1 TEASPOONFUL) BY MOUTH EVERY DAY 5 mLs by Per G Tube route daily FAMOTIDINE (PEPCID) 40 MG/5ML SUSPENSION USE DIRECTED 2 TIMES DAILY 2.5 mLs by Per G Tube route 2 times daily FLUOCINONIDE (LIDEX) 0.05 % EXTERNAL SOLUTION APPLY TOPICALLY THIN LAYER TO THE AFFECTED AREA(S) TO SCALP AND SKIN EVERY OTHER DAY NEEDED IBUPROFEN 100 MG/5ML SUSPENSION TAKE 10 ML [2 TEASPOONFUL] BY MOUTH EVERY 6 HOURS NEEDED FOR PAIN OR FOR FEVER INSULIN PEN NEEDLE (UNIFINE PENTIPS) 31G X 6 MM MISC 1 EACH BY DOES NOT APPLY ROUTE DAILY KETOCONAZOLE (NIZORAL) 2 % CREAM Apply topically daily to affected areas on face KETOCONAZOLE (NIZORAL) 2 % SHAMPOO Apply topically. LACTOBACILLUS (ACIDOPHILUS) TABLET 1 capsule by Per G Tube route in the morning and 1 capsule at noon and 1 capsule before bedtime. LAMOTRIGINE (LAMICTAL) 200 MG TABLET Takes 2 tabs in the AM and 1.5 tabs in the PM LEVETIRACETAM (KEPPRA) 100 MG/ML SOLUTION 10 mL (1,000 mg) by Per G Tube route 2 times daily. LIDOCAINE-PRILOCAINE (EMLA) 2.5-2.5 % CREAM Apply topically as needed for Pain (prior to blood draw) LOPERAMIDE (IMODIUM) 2 MG CAPSULE TAKE 1 CAPSULE BY MOUTH 3 TIMES DAILY NEEDED LORAZEPAM (ATIVAN) 1 MG TABLET Take 1 mg by mouth as needed for seizures. LORAZEPAM (ATIVAN) 1 MG TABLET 1 tablet (1 mg) by Per G Tube route 3 times daily. Do not start before December 06, 2022. MIDAZOLAM 5 MG/0.1ML SOLUTION Inhale 5 mg as needed. MULTIPLE VITAMINS-MINERALS (MULTIVITAMIN WITH IRON-MINERALS) LIQUID TAKE 15 ML BY MOUTH (1 TABLESPOONFUL) BY MOUTH EVERY DAY MUPIROCIN (BACTROBAN) 2 % OINTMENT APPLY TOPICALLY THIN LAYER TO THE AFFECTED AREA(S) TO TO TO RASH 3 TIMES DAILY NEEDED NUTRITIONAL SUPPLEMENTS (NUTRITIONAL SUPPLEMENT PLUS) LIQUID PEPTAMIN VHP 4 cans per day NYSTATIN (MYCOSTATIN) CREAM Apply topically 2 times daily. ONDANSETRON (ZOFRAN) 4 MG TABLET 1 tablet (4 mg) by Per G Tube route every 12 hours as needed for nausea or vomiting. ORAL ELECTROLYTES (PEDIATRIC ELECTROLYTE) SOLUTION 25 mL by Per G Tube route every 2 hours as needed (nausea/vomiting). PHENYTOIN (DILANTIN) 125 MG/5ML SUSPENSION 6 mL (150 mg) by Per G Tube route 2 times daily. POLYETHYLENE GLYCOL (MIRALAX) 17 GM/SCOOP POWDER GIVE 17gram PER gtube 2 TIMES DAILY POTASSIUM CHLORIDE (KLOR-CON) 20 MEQ PACKET 1 pk in 100 mL cool water by Gtube pre or post tube feed 2 x daily. Cut back on extra flushes by 200 mL daily while getting this med. PYRIDOXINE (B-6) 100 MG TABLET CRUSHED] 1 tablet AND put THROUGH THE tube ONCE daily SENNA (SENOKOT) 8.8 MG/5ML SYRUP 5 mLs by Per G Tube route 2 times daily SODIUM CHLORIDE 0.9 % INJECTION Normal saline bullets for trach cleaning - lifetime refills SODIUM CHLORIDE 0.9 % NEBULIZER SOLUTION use 3 mLs by nebulization as needed for Wheezing (about 60% of 1 vial. Discard any remaining from the vial) SODIUM HYPOCHLORITE (DAKIN'S, HALF-STRENGTH,) EXTERNAL SOLUTION Irrigate with 473 mL as directed. SODIUM PHOSPHATE (FLEETS) 7-19 GM/118ML ENEMA ENEMA place 1 enema RECTALLY 2 TIMES DAILY NEEDED FOR CONSTIPATION TERIPARATIDE (FORTEO) INJECTION INJECT 0.08ML UNDE THE SKIN DAILY ALLERGIES Hydromorphone, Doxycycline, Latex, Morphine, Nitrofurantoin, and Pedi-pre tape spray [wound dressing adhesive] FAMILY HISTORY Family History Problem Relation Name Age of Onset Colon cancer Neg Hx Ulcerative colitis Neg Hx Celiac disease Neg Hx Stomach cancer Neg Hx Seizures Neg Hx Inflammatory bowel disease Neg Hx SOCIAL HISTORY Social History Socioeconomic History Marital status: Single Tobacco Use Smoking status: Never Smokeless tobacco: Never Substance and Sexual Activity Alcohol use: Never Drug use: Never SCREENINGS PHYSICAL EXAM ED Triage Vitals Temp Heart Rate Resp BP 05/11/23 1328 05/11/23 1328 05/11/23 1328 -- 37.1 C (98.7 F) (!) 112 26 SpO2 Temp Source Heart Rate Source Patient Position 05/11/23 1328 05/11/23 1328 05/11/23 1328 -- 95 % Oral Monitor BP Location FiO2 (%) -- 05/11/23 1350 28 % Physical Exam Vitals and nursing note reviewed. Constitutional: General: She is not in acute distress. Appearance: She is well-developed. She is obese. She is not diaphoretic. HENT: Head: Normocephalic and atraumatic. Mouth/Throat: Mouth: Mucous membranes are moist. Pharynx: Oropharynx is clear. Eyes: General: No scleral icterus. Conjunctiva/sclera: Conjunctivae normal. Pupils: Pupils are equal, round, and reactive to light. Neck: Comments: Trach is a 6.5 Bivona cuffless clean dry intact surrounding skin Cardiovascular: Rate and Rhythm: Normal rate and regular rhythm. Heart sounds: No murmur heard. Pulmonary: Effort: Pulmonary effort is normal. No respiratory distress. Comments: Diminished and rhonchorous breath sounds Abdominal: General: There is no distension. Palpations: Abdomen is soft. Tenderness: There is no abdominal tenderness. Musculoskeletal: General: No swelling. Cervical back: Neck supple. Right lower leg: Edema present. Left lower leg: Edema present. Skin: General: Skin is warm and dry. Capillary Refill: Capillary refill takes less than 2 seconds. Findings: No erythema or rash. Neurological: Mental Status: She is alert. Comments: Nonverbal at baseline Psychiatric: Mood and Affect: Mood normal. DIAGNOSTIC RESULTS Procedures/EKG: EKG was reviewed by myself. Physician EKG interpretation can be found in [facility] RADIOLOGY (Per Emergency Physician): Interpretation per the Radiologist below, if available at the time of this note: XR chest 1 view Final Result No evidence of an acute cardiopulmonary abnormality. Report Dictated on Electronically Signed By: Kane Galvez MD Electronically Signed Date/Time: 05/11/2023 3:[address] chest angiogram w and/or wo IV contrast (Results Pending) ED BEDSIDE ULTRASOUND: Performed by ED Physician - none LABS: Labs Reviewed CBC WITH AUTO DIFFERENTIAL - Abnormal Result Value Auto WBC 13.2 (*) RBC 4.09 Hemoglobin 13.2 Hematocrit 38.6 MCV 94.3 MCH 32.2 MCHC 34.2 RDW 13.9 Platelets 265 MPV 6.6 (*) nRBC 0.0 COMPREHENSIVE METABOLIC PANEL - Abnormal SODIUM 143 POTASSIUM 2.7 (*) CHLORIDE 104 CARBON DIOXIDE 32 (*) ANION GAP 7 UREA NITROGEN 23 (*) CREATININE 0.25 (*) GLUCOSE 104 (*) CALCIUM 9.0 AST (SGOT) 27 ALT 14 ALKALINE PHOSPHATASE 93 ALBUMIN 3.1 (*) BILIRUBIN, TOTAL 0.4 TOTAL PROTEIN 6.9 eGFR >90.0 NT PRO BNP - Abnormal NT PRO BNP 1,430 (*) COMPLETE URINALYSIS - Abnormal Color, Urine Light Yellow Clarity, Urine Slightly Cloudy (*) pH, Urine 6.5 Leukocytes, Urine 25 (*) Nitrite, Urine Negative Protein, Urine 20 (*) Glucose, Urine Normal Bilirubin, Urine Negative Ketones, Urine Negative Urobilinogen, Urine Normal Blood, Urine 0.03 (*) RBC, Urine 6-10 (*) WBC, Urine 6-10 (*) Squamous Epithelial, Urine 0-2 Bacteria, Urine Few (*) Mucus, Urine Few Hyaline Casts, Urine 0-2 (*) SPECIFIC GRAVITY OF URINE (NUMERIC) 1.014 MANUAL DIFFERENTIAL - Abnormal Adjusted WBC 13.2 (*) Neutrophils % 72 Lymphocytes % 13 (*) Monocytes % 7 Eosinophils % 4 Myelocytes % 1 (*) Promyelocytes % 3 (*) Absolute Neutrophil Count 9.5 (*) Lymphocytes Absolute 1.7 Monocytes Absolute 0.9 (*) Eosinophils Absolute 0.5 Myelocytes Absolute 0.1 (*) Promyelocytes Absolute 0.4 (*) RBC Morphology Normal Toxic Granulation Present (*) PLT Morphology Normal Total Counted 100 Neutrophils Manual 72 Lymphocytes Manual 13 Monocytes Manual 7 Eosinophils Manual 4 (*) Myelocytes Manual 1 Promyelocytes Manual 3 Differential Method Manual differential performed POCT VENOUS BLOOD GAS UNSOLICITED RESULTS - Abnormal pH, Venous 7.406 pCO2, Venous 54.3 pO2, Venous 41.4 HCO3, Venous 34.1 (*) Base Excess, Venous 7.0 (*) SO2, Venous 75.7 FIO2 Narrative: Performed by: Kelby Rowland [facility], [address] [place] [id number] CLIA ID: [id number] SARS-COV-2, FLU A/B, AND RSV COMBO - Normal SARS-CoV-2 Not Detected Respiratory Syncytial Virus Not Detected Influenza A Not Detected Influenza B Not Detected Narrative: Methodology: real-time, RT-PCR The SARS-CoV-2, Flu A/B, and RSV Combo assay is intended for in vitro diagnostic use under the FDA Emergency Use Authorization (EUA). This test has not been FDA cleared or approved. In compliance with this authorization, please visit www.fda.gov/media/388734/downloa d or www.fda.gov/media/714583/downloa d to access the applicable information sheets. LACTIC ACID WITH REFLEX - Normal LACTIC ACID 0.8 MAGNESIUM - Normal MAGNESIUM 1.7 TROPONIN, WITH SERIAL REFLEX - Normal TROPONIN I <0.012 Narrative: Patients with high levels of Biotin oral intake (ie >5 mg/day) may have falsely decreased Troponin levels. BLOOD CULTURE BLOOD CULTURE URINE CULTURE COMPLETE URINALYSIS WITH REFLEX TO CULTURE Narrative: The following orders were created for panel order Urinalysis Complete with reflex to Culture. Procedure Abnormality Status --------- ------ Complete Urinalysis[[id number]] Abnormal Final result Please view results for these tests on the individual orders. BLOOD GAS, VENOUS All other labs were within normal range or not returned as of this dictation. EMERGENCY DEPARTMENT COURSE and DIFFERENTIAL DIAGNOSIS/MDM: Vitals: Vitals: 05/11/23 1417 05/11/23 1757 05/11/23 1805 05/11/23 1900 BP: 130/84 (!) 143/129 106/59 Pulse: 86 99 84 Resp: 18 16 (!) 27 Temp: TempSrc: SpO2: 95% 95% 96% Weight: Height: 32-year-old female presents from home she is chronic trach and PEG nonverbal mom's green ware caster states she has been being treated for aspiration pneumonia and also found to have low potassium now she is having shallow breathing. Differential aspiration pneumonia, sepsis, metabolic disturbance, UTI, PE, demand ischemia, bowel obstruction. Plan is for sepsis workup, chest x-ray, mom states she is having bowel movements and her belly is not distended so lower suspicion for bowel obstruction. Plan for IV potassium as reportedly was low on outpatient labs today. Possible admission. Diagnoses as of 05/11/23 3939 Aspiration pneumonia, unspecified aspiration pneumonia type, unspecified laterality, unspecified part of lung (HCC) Hypokalemia The patient presented with chief complaint of sob. The differential diagnosis associated with this patient's presentation includes above. Our workup consisted of ordering/reviewing: above. Diagnostic tests considered but not performed: ct head - baseline mental status I also reviewed external records from Outpatient notes 05/07/2023 progress note for aspiration pneumonitis. Consideration for escalation of care with: Admission/observation if concern for sepsis or pneumonia. Patient is in agreement with this plan. Patient's care was impacted by chronic trach. Patient's care was significantly impacted by social determinants of health including nonverbal. Medications potassium chloride IVPB 10 mEq (0 mEq IntraVENous Stopped 05/11/231655) potassium chloride IVPB 10 mEq (0 mEq IntraVENous Stopped 05/11/231903) REVAL: Patient with mild leukocytosis, hypokalemia replaced IV here BNP nonspecific mildly elevated troponin is normal venous blood gas with normal pH no CO2 retention urine with possible mild infection will send for culture she is already on oral Cipro. Her heart rate has improved into the 80s. Chest x-ray is clear. Mom states since she received the IV potassium her breathing has normalized. Given that still requiring the 3 there is trach collar oxygen we will get a CT chest angio to rule out PE or underlying pneumonia. Ultimately blood cultures were sent but mom would like to take her home which I believe is reasonable as long as her CT is amenable to that. I Signed out to dr christopher. CRITICAL CARE TIME Total Critical Care time was 32 minutes, excluding separately reportable procedures. There was a high probability of clinically significant/life threatening deterioration in the patient's condition which required my urgent intervention. CONSULTS: None PROCEDURES: Unless otherwise noted below, none Procedures Patients symptoms are consistent with sepsis, severe sepsis, or septic shock (If yes use .sepsiscoremeasure ): no FINAL IMPRESSION No diagnosis found. DISPOSITION PATIENT REFERRED TO: No follow-up provider specified. DISCHARGE MEDICATIONS: New Prescriptions No medications on file (Comment: Please note this report has been produced using speech recognition software and may contain errors related to that system including errors in grammar, punctuation, and spelling, as well as words and phrases that may be inappropriate. If there are any questions or concerns please feel free to contact the dictating provider for clarification.) Stewart Blanco MD (electronically signed) Emergency Medicine Provider Stewart Blanco MD 05/11/231948 documented in this encounter [facility] 05-11-2023 Hospital Discharg e instructions Stewart Christopher DO - 05/11/2023 10:20 PM EST Call your doctor on Sunday morning to schedule follow up. Take antibiotics as prescribed until they are gone. Take potassium supplements as prescribed. Return to the ED for fever, for symptoms that persist, change or worsen, or if any other problems arise. The following attachments cannot be sent through Care Everywhere.Hypokalemia Discharge Instructions (Panamanian)Aspiration Pneumonia Discharge Instructions (Panamanian)documented in this encounter [facility] 05-11-[address] notified that patient has a new IV and is ready for CT Felicia Day RN 05/11/232041 [facility] 05-11-2023 Emergency department Note Pt taken to CT & process controls technician states that IV in her forearm is not in the arm. Pt sent back from CT to have another ultrasound line placed due to need for CT. Ishan ESPINOZA notified of need for ultrasound line Felicia Day RN 05/11/232038 Felicia Day RN 05/11/232040 [facility] 05-11-2023 History of Presen t illness Narrative Need a 20G IV, unsure if port is power port. Felicia Day and Ishan Carrasco aware of US line documented in this encounter [facility] 05-11-2023 Emergency department Note Pt presents with EMS from home with mom. Pt with trach and was resently diagnosed with aspiration pneumonia. Pt on antibiotics. Per mother patient was strugling more today with breathing so decided to bring her in. 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 Unable to assess patient with questions Anne Chandra RN 05/11/23 1331 Anne Chandra RN 05/11/23 1332 [facility] 05-11-2023 Physician Emergency department Note EMERGENCY DEPARTMENT ENCOUNTER Pt Name: Eveline Saavedra Birthdate 1990 Date of evaluation: 05/11/2023 ED Provider: Stewart Blanco MD CHIEF COMPLAINT No chief complaint on file. HISTORY OF PRESENT ILLNESS (Location/Symptom, Timing/Onset, Context/Setting, Quality, Duration, Modifying Factors, Severity) Note limiting factors. I wore appropriate PPE for the entirety of this encounter. HPI Eveline Saavedra is a 32 y.o. who presents to the emergency department with chief complaint of shallow breathing. 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 She is on 3 L nasal cannula at all times at home. Mom states recently she has been constipated and ended up vomiting and mom is concerned that she aspirated. She states that he had an outpatient x-ray done that showed developing pneumonia she was started on Cipro but still not improving having fevers so started on Augmentin as well. She is now having loose stools secondary to the antibiotics but her belly is not distended per the mom. Mom states her urine is not foul-smelling. Mom is most concerned that she is pneumonia and she is it was also told she had hypokalemia on outpatient labs done. History of seizures neurogenic bladder with indwelling Poe catheter. No history of heart disease or blood clots or recent surgeries no reported increased leg swelling. Nursing Notes were reviewed. Limitations to history: Nonverbal Outside historians: Parent REVIEW OF SYSTEMS Review of Systems Constitutional: Positive for fever. Respiratory: Positive for shortness of breath. Gastrointestinal: Positive for constipation, diarrhea and vomiting. Negative for abdominal pain. Skin: Negative for rash. Neurological: Positive for seizures. All other systems reviewed and are negative. Pertinent positives and negatives as per HPI. PAST MEDICAL HISTORY Past Medical History: Diagnosis Date Brittle bones Cellulitis 02/14/2021 Decubitus ulcer GERD (gastroesophageal reflux disease) History of femur fracture 04/23/2020 left History of nephrolithiasis 04/23/2020 Indwelling Poe catheter present 12/01/2020 Kidney stones Neurogenic bladder 11/12/2019 Osteoporosis Pressure injury of right buttock, unstageable ([facility]) 10/05/2020 Rett syndrome Scoliosis Seizure ([facility]) Urinary tract infection associated with indwelling urethral catheter ([facility]) 12/01/2020 SURGICAL HISTORY Past Surgical History: Procedure Laterality Date GASTROSTOMY TUBE PLACEMENT SPINAL FIXATION SURGERY W/ IMPLANT TRACHEOSTOMY VAGUS NERVE STIMULATOR INSERTION CURRENT MEDICATIONS Previous Medications ACETAMINOPHEN (TYLENOL CHILDREN'S) 160 MG/5ML SUSPENSION Take 22.5 mL (720 mg) by mouth every 6 hours as needed for mild pain (1-3), moderate pain (4-6) or fever. No more than 4 doses in a 24 hour period. ACETAMINOPHEN (TYLENOL) 500 MG TABLET TAKE 1 AND 1/2 TABLETS VIA GTUBE EVERY 4 HOURS NEEDED FOR PAIN. DO NOT EXCEED 4 DOSES ALBUTEROL (2.5 MG/3ML) 0.083% NEBULIZER SOLUTION USE 1 VIAL VIA NEBULIZER DIRECTED EVERY 4 HOURS NEEDED AMOXICILLIN-CLAVULANATE (AUGMENTIN) 875-125 MG TABLET Take 1 tablet by mouth 2 times daily for 10 days. BANZEL 400 MG TABLET TAKE 2 TABLETS BY MOUTH 4 TIMES DAILY BETAMETHASONE VALERATE (VALISONE) 0.1 % LOTION apply 5 milliliters to affected area 2 TIMES A WEEK, WHEN NEEDED FOR RASH BISACODYL (DULCOLAX) 10 MG SUPPOSITORY Insert 1 suppository (10 mg) into the rectum daily. CETIRIZINE (ZYRTEC) 1 MG/ML SYRUP 10 mL (10 mg) by Per G Tube route daily. CIPROFLOXACIN (CIPRO) 500 MG TABLET 1 tablet (500 mg) by Per G Tube route 2 times daily for 10 days. COLLAGENASE (SANTYL) 250 UNIT/GM OINTMENT APPLY OINTMENT TOPICALLY TO WOUND DIRECTED CONTROL GEL FORMULA DRESSING (DUODERM CGF BORDER) MISC Apply to open wound and change every 7 days. Size: 10 x 10 cm D-NEAL PEDIATRIC 10 MCG/ML LIQUID TAKE 5 ML BY MOUTH (1 TEASPOONFUL) BY MOUTH EVERY DAY 5 mLs by Per G Tube route daily FAMOTIDINE (PEPCID) 40 MG/5ML SUSPENSION USE DIRECTED 2 TIMES DAILY 2.5 mLs by Per G Tube route 2 times daily FLUOCINONIDE (LIDEX) 0.05 % EXTERNAL SOLUTION APPLY TOPICALLY THIN LAYER TO THE AFFECTED AREA(S) TO SCALP AND SKIN EVERY OTHER DAY NEEDED IBUPROFEN 100 MG/5ML SUSPENSION TAKE 10 ML [2 TEASPOONFUL] BY MOUTH EVERY 6 HOURS NEEDED FOR PAIN OR FOR FEVER INSULIN PEN NEEDLE (UNIFINE PENTIPS) 31G X 6 MM MISC 1 EACH BY DOES NOT APPLY ROUTE DAILY KETOCONAZOLE (NIZORAL) 2 % CREAM Apply topically daily to affected areas on face KETOCONAZOLE (NIZORAL) 2 % SHAMPOO Apply topically. LACTOBACILLUS (ACIDOPHILUS) TABLET 1 capsule by Per G Tube route in the morning and 1 capsule at noon and 1 capsule before bedtime. LAMOTRIGINE (LAMICTAL) 200 MG TABLET Takes 2 tabs in the AM and 1.5 tabs in the PM LEVETIRACETAM (KEPPRA) 100 MG/ML SOLUTION 10 mL (1,000 mg) by Per G Tube route 2 times daily. LIDOCAINE-PRILOCAINE (EMLA) 2.5-2.5 % CREAM Apply topically as needed for Pain (prior to blood draw) LOPERAMIDE (IMODIUM) 2 MG CAPSULE TAKE 1 CAPSULE BY MOUTH 3 TIMES DAILY NEEDED LORAZEPAM (ATIVAN) 1 MG TABLET Take 1 mg by mouth as needed for seizures. LORAZEPAM (ATIVAN) 1 MG TABLET 1 tablet (1 mg) by Per G Tube route 3 times daily. Do not start before December 06, 2022. MIDAZOLAM 5 MG/0.1ML SOLUTION Inhale 5 mg as needed. MULTIPLE VITAMINS-MINERALS (MULTIVITAMIN WITH IRON-MINERALS) LIQUID TAKE 15 ML BY MOUTH (1 TABLESPOONFUL) BY MOUTH EVERY DAY MUPIROCIN (BACTROBAN) 2 % OINTMENT APPLY TOPICALLY THIN LAYER TO THE AFFECTED AREA(S) TO TO TO RASH 3 TIMES DAILY NEEDED NUTRITIONAL SUPPLEMENTS (NUTRITIONAL SUPPLEMENT PLUS) LIQUID PEPTAMIN VHP 4 cans per day NYSTATIN (MYCOSTATIN) CREAM Apply topically 2 times daily. ONDANSETRON (ZOFRAN) 4 MG TABLET 1 tablet (4 mg) by Per G Tube route every 12 hours as needed for nausea or vomiting. ORAL ELECTROLYTES (PEDIATRIC ELECTROLYTE) SOLUTION 25 mL by Per G Tube route every 2 hours as needed (nausea/vomiting). PHENYTOIN (DILANTIN) 125 MG/5ML SUSPENSION 6 mL (150 mg) by Per G Tube route 2 times daily. POLYETHYLENE GLYCOL (MIRALAX) 17 GM/SCOOP POWDER GIVE 17gram PER gtube 2 TIMES DAILY POTASSIUM CHLORIDE (KLOR-CON) 20 MEQ PACKET 1 pk in 100 mL cool water by Gtube pre or post tube feed 2 x daily. Cut back on extra flushes by 200 mL daily while getting this med. PYRIDOXINE (B-6) 100 MG TABLET CRUSHED] 1 tablet AND put THROUGH THE tube ONCE daily SENNA (SENOKOT) 8.8 MG/5ML SYRUP 5 mLs by Per G Tube route 2 times daily SODIUM CHLORIDE 0.9 % INJECTION Normal saline bullets for trach cleaning - lifetime refills SODIUM CHLORIDE 0.9 % NEBULIZER SOLUTION use 3 mLs by nebulization as needed for Wheezing (about 60% of 1 vial. Discard any remaining from the vial) SODIUM HYPOCHLORITE (DAKIN'S, HALF-STRENGTH,) EXTERNAL SOLUTION Irrigate with 473 mL as directed. SODIUM PHOSPHATE (FLEETS) 7-19 GM/118ML ENEMA ENEMA place 1 enema RECTALLY 2 TIMES DAILY NEEDED FOR CONSTIPATION TERIPARATIDE (FORTEO) INJECTION INJECT 0.08ML UNDE THE SKIN DAILY ALLERGIES Hydromorphone, Doxycycline, Latex, Morphine, Nitrofurantoin, and Pedi-pre tape spray [wound dressing adhesive] FAMILY HISTORY Family History Problem Relation Name Age of Onset Colon cancer Neg Hx Ulcerative colitis Neg Hx Celiac disease Neg Hx Stomach cancer Neg Hx Seizures Neg Hx Inflammatory bowel disease Neg Hx SOCIAL HISTORY Social History Socioeconomic History Marital status: Single Tobacco Use Smoking status: Never Smokeless tobacco: Never Substance and Sexual Activity Alcohol use: Never Drug use: Never SCREENINGS PHYSICAL EXAM ED Triage Vitals Temp Heart Rate Resp BP 05/11/23 1328 05/11/23 1328 05/11/23 1328 -- 37.1 C (98.7 F) (!) 112 26 SpO2 Temp Source Heart Rate Source Patient Position 05/11/23 1328 05/11/23 1328 05/11/23 1328 -- 95 % Oral Monitor BP Location FiO2 (%) -- 05/11/23 1350 28 % Physical Exam Vitals and nursing note reviewed. Constitutional: General: She is not in acute distress. Appearance: She is well-developed. She is obese. She is not diaphoretic. HENT: Head: Normocephalic and atraumatic. Mouth/Throat: Mouth: Mucous membranes are moist. Pharynx: Oropharynx is clear. Eyes: General: No scleral icterus. Conjunctiva/sclera: Conjunctivae normal. Pupils: Pupils are equal, round, and reactive to light. Neck: Comments: Trach is a 6.5 Bivona cuffless clean dry intact surrounding skin Cardiovascular: Rate and Rhythm: Normal rate and regular rhythm. Heart sounds: No murmur heard. Pulmonary: Effort: Pulmonary effort is normal. No respiratory distress. Comments: Diminished and rhonchorous breath sounds Abdominal: General: There is no distension. Palpations: Abdomen is soft. Tenderness: There is no abdominal tenderness. Musculoskeletal: General: No swelling. Cervical back: Neck supple. Right lower leg: Edema present. Left lower leg: Edema present. Skin: General: Skin is warm and dry. Capillary Refill: Capillary refill takes less than 2 seconds. Findings: No erythema or rash. Neurological: Mental Status: She is alert. Comments: Nonverbal at baseline Psychiatric: Mood and Affect: Mood normal. DIAGNOSTIC RESULTS Procedures/EKG: EKG was reviewed by myself. Physician EKG interpretation can be found in [facility] RADIOLOGY (Per Emergency Physician): Interpretation per the Radiologist below, if available at the time of this note: XR chest 1 view Final Result No evidence of an acute cardiopulmonary abnormality. Report Dictated on Electronically Signed By: Kane Galvez MD Electronically Signed Date/Time: 05/11/2023 3:[address] chest angiogram w and/or wo IV contrast (Results Pending) ED BEDSIDE ULTRASOUND: Performed by ED Physician - none LABS: Labs Reviewed CBC WITH AUTO DIFFERENTIAL - Abnormal Result Value Auto WBC 13.2 (*) RBC 4.09 Hemoglobin 13.2 Hematocrit 38.6 MCV 94.3 MCH 32.2 MCHC 34.2 RDW 13.9 Platelets 265 MPV 6.6 (*) nRBC 0.0 COMPREHENSIVE METABOLIC PANEL - Abnormal SODIUM 143 POTASSIUM 2.7 (*) CHLORIDE 104 CARBON DIOXIDE 32 (*) ANION GAP 7 UREA NITROGEN 23 (*) CREATININE 0.25 (*) GLUCOSE 104 (*) CALCIUM 9.0 AST (SGOT) 27 ALT 14 ALKALINE PHOSPHATASE 93 ALBUMIN 3.1 (*) BILIRUBIN, TOTAL 0.4 TOTAL PROTEIN 6.9 eGFR >90.0 NT PRO BNP - Abnormal NT PRO BNP 1,430 (*) COMPLETE URINALYSIS - Abnormal Color, Urine Light Yellow Clarity, Urine Slightly Cloudy (*) pH, Urine 6.5 Leukocytes, Urine 25 (*) Nitrite, Urine Negative Protein, Urine 20 (*) Glucose, Urine Normal Bilirubin, Urine Negative Ketones, Urine Negative Urobilinogen, Urine Normal Blood, Urine 0.03 (*) RBC, Urine 6-10 (*) WBC, Urine 6-10 (*) Squamous Epithelial, Urine 0-2 Bacteria, Urine Few (*) Mucus, Urine Few Hyaline Casts, Urine 0-2 (*) SPECIFIC GRAVITY OF URINE (NUMERIC) 1.014 MANUAL DIFFERENTIAL - Abnormal Adjusted WBC 13.2 (*) Neutrophils % 72 Lymphocytes % 13 (*) Monocytes % 7 Eosinophils % 4 Myelocytes % 1 (*) Promyelocytes % 3 (*) Absolute Neutrophil Count 9.5 (*) Lymphocytes Absolute 1.7 Monocytes Absolute 0.9 (*) Eosinophils Absolute 0.5 Myelocytes Absolute 0.1 (*) Promyelocytes Absolute 0.4 (*) RBC Morphology Normal Toxic Granulation Present (*) PLT Morphology Normal Total Counted 100 Neutrophils Manual 72 Lymphocytes Manual 13 Monocytes Manual 7 Eosinophils Manual 4 (*) Myelocytes Manual 1 Promyelocytes Manual 3 Differential Method Manual differential performed POCT VENOUS BLOOD GAS UNSOLICITED RESULTS - Abnormal pH, Venous 7.406 pCO2, Venous 54.3 pO2, Venous 41.4 HCO3, Venous 34.1 (*) Base Excess, Venous 7.0 (*) SO2, Venous 75.7 FIO2 Narrative: Performed by: Kelby Rowland [facility], [address] [place] [id number] CLIA ID: [id number] SARS-COV-2, FLU A/B, AND RSV COMBO - Normal SARS-CoV-2 Not Detected Respiratory Syncytial Virus Not Detected Influenza A Not Detected Influenza B Not Detected Narrative: Methodology: real-time, RT-PCR The SARS-CoV-2, Flu A/B, and RSV Combo assay is intended for in vitro diagnostic use under the FDA Emergency Use Authorization (EUA). This test has not been FDA cleared or approved. In compliance with this authorization, please visit www.fda.gov/media/832287/downloa d or www.fda.gov/media/882719/downloa d to access the applicable information sheets. LACTIC ACID WITH REFLEX - Normal LACTIC ACID 0.8 MAGNESIUM - Normal MAGNESIUM 1.7 TROPONIN, WITH SERIAL REFLEX - Normal TROPONIN I <0.012 Narrative: Patients with high levels of Biotin oral intake (ie >5 mg/day) may have falsely decreased Troponin levels. BLOOD CULTURE BLOOD CULTURE URINE CULTURE COMPLETE URINALYSIS WITH REFLEX TO CULTURE Narrative: The following orders were created for panel order Urinalysis Complete with reflex to Culture. Procedure Abnormality Status --------- ------ Complete Urinalysis[[id number]] Abnormal Final result Please view results for these tests on the individual orders. BLOOD GAS, VENOUS All other labs were within normal range or not returned as of this dictation. EMERGENCY DEPARTMENT COURSE and DIFFERENTIAL DIAGNOSIS/MDM: Vitals: Vitals: 05/11/23 1417 05/11/23 1757 05/11/23 1805 05/11/23 1900 BP: 130/84 (!) 143/129 106/59 Pulse: 86 99 84 Resp: 18 16 (!) 27 Temp: TempSrc: SpO2: 95% 95% 96% Weight: Height: 32-year-old female presents from home she is chronic trach and PEG nonverbal mom's green ware caster states she has been being treated for aspiration pneumonia and also found to have low potassium now she is having shallow breathing. Differential aspiration pneumonia, sepsis, metabolic disturbance, UTI, PE, demand ischemia, bowel obstruction. Plan is for sepsis workup, chest x-ray, mom states she is having bowel movements and her belly is not distended so lower suspicion for bowel obstruction. Plan for IV potassium as reportedly was low on outpatient labs today. Possible admission. Diagnoses as of 05/11/23 9809 Aspiration pneumonia, unspecified aspiration pneumonia type, unspecified laterality, unspecified part of lung (HCC) Hypokalemia The patient presented with chief complaint of sob. The differential diagnosis associated with this patient's presentation includes above. Our workup consisted of ordering/reviewing: above. Diagnostic tests considered but not performed: ct head - baseline mental status I also reviewed external records from Outpatient notes 05/07/2023 progress note for aspiration pneumonitis. Consideration for escalation of care with: Admission/observation if concern for sepsis or pneumonia. Patient is in agreement with this plan. Patient's care was impacted by chronic trach. Patient's care was significantly impacted by social determinants of health including nonverbal. Medications potassium chloride IVPB 10 mEq (0 mEq IntraVENous Stopped 05/11/23 1656) potassium chloride IVPB 10 mEq (0 mEq IntraVENous Stopped 05/11/23 1904) REVAL: Patient with mild leukocytosis, hypokalemia replaced IV here BNP nonspecific mildly elevated troponin is normal venous blood gas with normal pH no CO2 retention urine with possible mild infection will send for culture she is already on oral Cipro. Her heart rate has improved into the 80s. Chest x-ray is clear. Mom states since she received the IV potassium her breathing has normalized. Given that still requiring the 3 there is trach collar oxygen we will get a CT chest angio to rule out PE or underlying pneumonia. Ultimately blood cultures were sent but mom would like to take her home which I believe is reasonable as long as her CT is amenable to that. I Signed out to dr christopher. CRITICAL CARE TIME Total Critical Care time was 32 minutes, excluding separately reportable procedures. There was a high probability of clinically significant/life threatening deterioration in the patient's condition which required my urgent intervention. CONSULTS: None PROCEDURES: Unless otherwise noted below, none Procedures Patients symptoms are consistent with sepsis, severe sepsis, or septic shock (If yes use .sepsiscoremeasure ): no FINAL IMPRESSION No diagnosis found. DISPOSITION PATIENT REFERRED TO: No follow-up provider specified. DISCHARGE MEDICATIONS: New Prescriptions No medications on file (Comment: Please note this report has been produced using speech recognition software and may contain errors related to that system including errors in grammar, punctuation, and spelling, as well as words and phrases that may be inappropriate. If there are any questions or concerns please feel free to contact the dictating provider for clarification.) Stewart Blanco MD (electronically signed) Emergency Medicine Provider Stewart Blanco MD 05/11/231948 [facility] [employer] Work Phone: 05-10-2023 Note I have reviewed and agree with plan of care. [facility] 05-06-2023 Telephone encounter Note Please schedule pt for VV with Mildred tomorrow morning around 9 AM for assessment of need for abx, mobile xray, etc. [facility] 05-06-2023 Miscellaneous Notes Please schedule pt for VV with Mildred tomorrow morning around 9 AM for assessment of need for abx, mobile xray, etc. S-Mother Karen is calling for patient with a fever. B-This started around 8:30 pm tonight. A-Her temperature is 103.2 degrees. No one else in her family is ill. States her trach secretions are clear, but she vomited twice, once yesterday and again at 2:00 am. She feels she did aspirate. She continues to take her Albuterol nebulizer treatments. Her urine is normal. Mother feels the vomiting is related to smaller than normal BM's but she has been checking her digitally and her stool is soft but less than normal. She takes Miralax and Senna. She is giving her 25 ml of Pedialyte every hour to keep her hydrated along with her TF bolus' as prescribed. R-Secure chat to Dr. Torres and she advises it sounds like Eveline is stable tonight. She would like a VV tomorrow at 9:00 am and possible portable CXR. It is ok to alternate Ibuprofen and Tylenol every 4 hours tonight to help keep Eveline comfortable. Dr. Torres agrees with her fluid intake schedule of TF bolus of 300 ml 5 x a day over 24 hours, water and med bolus to equal 2000 ml over 24 hours. OK to give 25 ml of Pedialyte every hour to be included in total water intake of 2000 ml. She advises to watch for lack of saturated briefs and oral secretions. These are good indicators of dehydration. Mother notified and agrees with plan of care. I advised her to call back if Eveline gets worse or she has any further questions. Reason for Disposition [1] Fever > 100.0 F (37.8 C) AND [2] bedridden (e.g., chcf patient, CVA, chronic illness, recovering from surgery) Answer Assessment - Initial Assessment Questions 1. TEMPERATURE: What is the most recent temperature? How was it measured? 830 pm 2. ONSET: When did the fever start? 830 pm 3. CHILLS: Do you have chills? If yes: How bad are they? (e.g., none, mild, moderate, severe) - NONE: no chills - MILD: feeling cold - MODERATE: feeling very cold, some shivering (feels better under a thick blanket) - SEVERE: feeling extremely cold with shaking chills (general body shaking, rigors; even under a thick blanket) no 4. OTHER SYMPTOMS: Do you have any other symptoms besides the fever? (e.g., abdomen pain, cough, diarrhea, earache, headache, sore throat, urination pain) no 5. CAUSE: If there are no symptoms, ask: What do you think is causing the fever? no 6. CONTACTS: Does anyone else in the family have an infection? no 7. TREATMENT: What have you done so far to treat this fever? (e.g., medications) Not yet 8. IMMUNOCOMPROMISE: Do you have of the following: diabetes, HIV positive, splenectomy, cancer chemotherapy, chronic steroid treatment, transplant patient, etc. See note 9. : Is there any chance you are ? When was your last menstrual period? N/A 10. TRAVEL: Have you traveled out of the country in the last month? (e.g., travel history, exposures) No Protocols used: [id number] documented in this encounter [facility] 05-06-2023 Telephone encounter Note S-Mother Karen is calling for patient with a fever. B-This started around 8:30 pm tonight. A-Her temperature is 103.2 degrees. No one else in her family is ill. States her trach secretions are clear, but she vomited twice, once yesterday and again at 2:00 am. She feels she did aspirate. She continues to take her Albuterol nebulizer treatments. Her urine is normal. Mother feels the vomiting is related to smaller than normal BM's but she has been checking her digitally and her stool is soft but less than normal. She takes Miralax and Senna. She is giving her 25 ml of Pedialyte every hour to keep her hydrated along with her TF bolus' as prescribed. R-Secure chat to Dr. Torres and she advises it sounds like Eveline is stable tonight. She would like a VV tomorrow at 9:00 am and possible portable CXR. It is ok to alternate Ibuprofen and Tylenol every 4 hours tonight to help keep Eveline comfortable. Dr. Torres agrees with her fluid intake schedule of TF bolus of 300 ml 5 x a day over 24 hours, water and med bolus to equal 2000 ml over 24 hours. OK to give 25 ml of Pedialyte every hour to be included in total water intake of 2000 ml. She advises to watch for lack of saturated briefs and oral secretions. These are good indicators of dehydration. Mother notified and agrees with plan of care. I advised her to call back if Eveline gets worse or she has any further questions. Reason for Disposition [1] Fever > 100.0 F (37.8 C) AND [2] bedridden (e.g., chcf patient, CVA, chronic illness, recovering from surgery) Answer Assessment - Initial Assessment Questions 1. TEMPERATURE: What is the most recent temperature? How was it measured? 830 pm 2. ONSET: When did the fever start? 830 pm 3. CHILLS: Do you have chills? If yes: How bad are they? (e.g., none, mild, moderate, severe) - NONE: no chills - MILD: feeling cold - MODERATE: feeling very cold, some shivering (feels better under a thick blanket) - SEVERE: feeling extremely cold with shaking chills (general body shaking, rigors; even under a thick blanket) no 4. OTHER SYMPTOMS: Do you have any other symptoms besides the fever? (e.g., abdomen pain, cough, diarrhea, earache, headache, sore throat, urination pain) no 5. CAUSE: If there are no symptoms, ask: What do you think is causing the fever? no 6. CONTACTS: Does anyone else in the family have an infection? no 7. TREATMENT: What have you done so far to treat this fever? (e.g., medications) Not yet 8. IMMUNOCOMPROMISE: Do you have of the following: diabetes, HIV positive, splenectomy, cancer chemotherapy, chronic steroid treatment, transplant patient, etc. See note 9. : Is there any chance you are ? When was your last menstrual period? N/A 10. TRAVEL: Have you traveled out of the country in the last month? (e.g., travel history, exposures) No Protocols used: [id number] [facility] 04-24-2023 Telephone encounter Note Left detailed msg for pt mother. [facility] 04-24-2023 Miscellaneous Notes Left detailed msg for pt mother. Should stop forteo a week before her reclast thank you Spoke with pt mother and she is aware of referral. I informed her to reach out to [facility]. She wants to know when should Eveilne stop the Forteo? When should her last dose be? Should she continue taking it until she gets Reclast? Please advise. Images from the original note were not included. Referral placed to [facility]. Will notify patient mother. I am sorry William- I put that in and nothing is coming up- also tried a few variations I could think of Type in [facility] and that should come up. Ok I will. I cannot find [facility] on [facility]- I see [facility] - is that it? Thank you Dr. Bello, please send a referral to [facility]. They should be able to get patient set up for the Reclast to be given at home. Checked with the infusion center who recommended we send a referral to [facility] for this. From what I understand they have to bill medically but they would complete the PA. I am checking with the infusion center to see how we can help pt get Reclast from home. Per Dr. Bello will postpone closer to 04/2023. Message from Dr. Bello: Pt will need approval for reclast therapy early 05/19- please get to [facility] for approval- pt is debilitated severely and cannot leave home- she also has been unable to get dexa scans as she has a jason in her back and a number of fractures documented in this encounter [facility] 04-24-2023 Telephone encounter Note Should stop forteo a week before her reclast thank you [facility] [employer] Work Phone: 04-24-2023 Note Spoke with pt mother and she is aware of referral. I informed her to reach out to [facility]. She wants to know when should Eveline stop the Forteo? When should her last dose be? Should she continue taking it until she gets Reclast? Please advise. [facility] 04-24-2023 Note Referral placed to [facility]. Will notify patient mother. [facility] 04-24-2023 Telephone encounter Note Spoke with pt mother and she is aware of referral. I informed her to reach out to [facility]. She wants to know when should Eveline stop the Forteo? When should her last dose be? Should she continue taking it until she gets Reclast? Please advise. [facility] 04-24-2023 Telephone encounter Note Images from the original note were not included. Referral placed to [facility]. Will notify patient mother. [facility] 04-20-2023 Telephone encounter Note I am sorry William- I put that in and nothing is coming up- also tried a few variations I could think of [employer] Work Phone: 04-20-2023 Miscellaneous Notes I am sorry William- I put that in and nothing is coming up- also tried a few variations I could think of Type in [facility] and that should come up. Ok I will. I cannot find [facility]- I see [facility] - is that it? Thank you Dr. Bello, please send a referral to [facility]. They should be able to get patient set up for the Reclast to be given at home. Checked with the infusion center who recommended we send a referral to [facility] for this. From what I understand they have to bill medically but they would complete the PA. I am checking with the infusion center to see how we can help pt get Reclast from home. Per Dr. Bello will postpone closer to 04/2023. Message from Dr. Bello: Pt will need approval for reclast therapy early 05/19- please get to [facility] for approval- pt is debilitated severely and cannot leave home- she also has been unable to get dexa scans as she has a jason in her back and a number of fractures documented in this encounter [facility] 04-19-[address] Bello, please se nd a referral to [facility]. They should be able to get patient set up for the Reclast to be given at home. [facility] 04-19-2023 Telephone encounter Note Type in [facility] and that should come up. [facility] 04-19-2023 Miscellaneous Notes Type in [facility] and that should come up. Ok I will. [facility]- I see [facility] - is that it? Thank you Dr. Bello, please send a referral to [facility]. They should be able to get patient set up for the Reclast to be given at home. Checked with the infusion center who recommended we send a referral to [facility] home infusion for this. From what I understand they have to bill medically but they would complete the PA. I am checking with the infusion center to see how we can help pt get Reclast from home. Per Dr. Bello will postpone closer to 04/2023. Message from Dr. Bello: Pt will need approval for reclast therapy early 05/19- please get to [facility] for approval- pt is debilitated severely and cannot leave home- she also has been unable to get dexa scans as she has a jason in her back and a number of fractures documented in this encounter [facility] [employer] 04-19-2023 Telephone encounter Note Ok I will. I cannot find [facility] on [facility]- I see [facility] homecare - is that it? Thank you [employer] Work Phone: 04-19-[address] Bello, please send a referral to [facility]. They should be able to get patient set up for the Reclast to be given at home. [facility] [employer] 04-18-2023 Note [facility] we [facility] a [facility] to [facility] for this. From what I understand they have to bill medically but they would complete the PA. [facility] [employer] [facility] 04-18-2023 Telephone encounter Note Checked with the infusion center who recommended we send a referral to [facility] for this. From what I understand they have to bill medically but they would complete the PA. [facility] 04-18-2023 Telephone encounter Note I am checking with the infusion center to see how we can help pt get Reclast from home. [facility] 03-02-2023 Miscellaneous Notes The following approved medication requests have been transmitted electronically. Requested Prescriptions Signed Prescriptions Disp Refills lamoTRIgine (LAMICTAL) 200 mg tablet 315 tablet 1 Sig: TAKE 2 TABLETS by G-tube EVERY MORNING and TAKE 1 AND 1/2 TABLETS EVERY EVENING Authorizing Provider: CRISTINO SALAZAR APRN.MIXING TANK OPERATOR Prescription Refill: Requested by: pharmacy Please E-Scribe Caller Contact Number: Pharmacy Name: [facility] Pharmacy Number: [phone] Generic/ brand: 30 or 90 day supply requested: 90 Last appointment: 03/16/21 Next Appointment: none; sent to schedulers Patient of Dr. Phipps documented in this encounter [facility] 03-01-2023 Telephone encounter Note Next appt 09/05/2023. [facility] 03-01-2023 Miscellaneous Notes Next appt 09/05/2023. documented in this encounter [facility] 02-21-2023 Telephone encounter Note Per Dr. Bello will postpone closer to 04/2023. [facility] 02-21-2023 Telephone encounter Note Message from Dr. Bello: Pt will need approval for reclast therapy early 05/19- please get to [facility] for approval- pt is debilitated severely and cannot leave home- she also has been unable to get dexa scans as she has a jason in her back and a number of fractures [facility] 02-21-2023 History of Presen t illness Narrative . ENDOCRINOLOGY [address] [facility] [address] Dept: [phone] Dept Visit type: Established patient Reason for [...] stated that they are currently in the [facility]. If the patient is a minor, permission [...] doses Nitrofurantoin Nausea And Vomiting Pedi-Pre [place] [Wound Dressing Adhesive] Hives and Rash Outpatient [...] Range Status 08/17/2020 1.73 uIU/mL Final Comment: [facility] Auto WBC Date Value Ref Range Status [...] 05/27/2020 13.2 12.0 - 16.0 g/dL Final [facility] MEAN CORPUSCULAR VOLUME Date Value Ref [...] 10/26/2022 87 38 - 126 U/L Final [facility] [employer] VITAMIN D 25-HYDROXY Date Value Ref Range Status 01/20/2021 59.6 Final Imaging/Testing: On this date, 02/21/2023 I have spent 35 minutes reviewing previous notes, test results and face to face with the patient discussing the diagnosis and importance of compliance with the treatment plan as well as documenting on the day of the visit. Santos Bello MD documented in this encounter [facility] 01-31-2023 Telephone encounter Note Letter created and attached to new order. Please call Mom to see if wound concerns are improved. [facility] 01-31-2023 Miscellaneous Notes Letter created and attached to new order. Please call Mom to see if wound concerns are improved. MOE had received a message from pts new [facility]: Elizabeth Paula on 01/25/23. A justification for [...] any shortages. SW received a message from [facility] re: whether or not [employer] is a waiver provider. SW reached out to [facility] and it does not appear that they are a waiver provider. SW will reach back out to [facility]. Total time of phone call: 11-15 minutes Spoke with Karen. Reports she called [facility] and was told they could not give her advice unless she was referred as a new patient (due to length of time since last visit) New pressure relieving mattress has been in process for 3 years per Karen- [facility] reports she is working as fast as [...] diapers and pads. SW reached out to [facility]-liability claims representative is stating that pt is receiving the maximum that insurance will allow. [facility] does not make any exceptions based on medical need. Pts next shipment is due around Feb 02. Pt is currently receiving 96 pad, 90 briefs, 2 boxes of gloves and 150 chux. A new order will be needed at the end of February. SW left a message for pts SSA: Paulina Velasco [phone] to determine if there are [...] placement with turns) Recommended that Karen call [facility] (as she has had extensive [...] more information. S: Patient's mom spoke with [facility] nurse regarding medication request B: Onset of [...] (not a refill) Protocols used: Medication Question [id number] documented in this encounter [facility] 01-26-2023 Telephone encounter Note SW had received a message from pts new SSA: Elizabeth Paula on 01/25/23. A justification for [...] any shortages. SW received a message from [facility] re: whether or not [facility] is a waiver provider. SW reached out to [facility] and it does not appear that they are a waiver provider. SW will reach back out to [facility]. Total time of phone call: 11-15 minutes [facility] 01-26-2023 Telephone encounter Note Spoke with Karen. Reports she called [facility] and was told they could not give her advice unless she was referred as a new patient (due to length of time since last visit) New pressure relieving mattress has been in process for 3 years per Karen- [facility] reports she is working as fast as she can on it. Karen is applying Desitin with fungal cream to area. Will send photo of wound (Karen states areas are staple sized in length- they look bigger in the picture. .mdc [facility] 01-25-2023 Telephone encounter Note Spoke with pts mom to gather additional information re: incontinence supplies. Mom is stating that she is not receiving enough supplies through the month and is having to buy additional diapers and pads. SW reached out to [facility]-liability claims representative is stating that pt is receiving the maximum that insurance will allow. [facility] does not make any exceptions based on medical need. Pts next shipment is due around Feb 02. Pt is currently receiving 96 pad, 90 briefs, 2 boxes of gloves and 150 chux. A new order will be needed at the end of February. SW left a message for pts [facility]: Paulina Velasco [phone] ext [phone] to determine if there are resources available through board. Total time of phone call: 6-10 minutes [facility] 01-25-2023 Miscellaneous Notes Spoke with pts mom to gather additional information re: incontinence supplies. Mom is stating that she is not receiving enough supplies through the month and is having to buy additional diapers and pads. MOE reached out to [facility]-liability claims representative is stating that pt is receiving the maximum that insurance will allow. [facility] does not make any exceptions based on medical need. Pts next shipment is due around Feb 02. Pt is currently receiving 96 pad, 90 briefs, 2 boxes of gloves and 150 chux. A new order will be needed at the end of February. MOE left a message for pts [facility]: Paulina Velasco [phone] ext [phone] to determine if there are [...] placement with turns) Recommended that Karen call [facility]'s [facility]ound Care (as she has had extensive [...] more information. S: Patient's mom spoke with [facility] nurse regarding medication request B: Onset of [...] (not a refill) Protocols used: Medication Question [id number] documented in this encounter [facility] 01-24-2023 Telephone encounter Note Agree with advice given. [facility] 01-24-2023 Miscellaneous Notes Agree with advice given. Called and spoke with Karen. Area is on Evelnie's back directly over a jason. 2-3 weeks duration. Approximately 1 inch in length. Reddened Not able to palpate any fluid beneath. No exudate or drainage. Area is not open. More friction-related. Karen feels area is irritated from turning (hand placement with turns) Recommended that Karen call [facility]'s Wound Care (as she has had extensive [...] more information. S: Patient's mom spoke with [facility] nurse regarding medication request B: Onset of [...] (not a refill) Protocols used: Medication Question [id number] documented in this encounter [employer] [facility] 01-24-2023 Telephone encounter Note Called and spoke with Karen. Area is on Eveline's back directly over a jason. 2-3 weeks duration. Approximately 1 inch in length. Reddened Not able to palpate any fluid beneath. No exudate or drainage. Area is not open. More friction-related. Karen feels area is irritated from turning (hand placement with turns) Recommended that Karen call [facility]'s Wound Care (as she has had extensive treatment from them in the past) for advisement. She is comfortable doing this. She agrees to let me know what their recommendation is. Karen reports she has a new supplier for [employer] diapers. Asks that Jennyfer call her related to concerns with quantity of diapers being supplied. Will forward request. Total time of phone call: <5 minutes [facility] 01-24-2023 Telephone encounter Note Please call to get more information. [facility] 01-24-2023 Telephone encounter Note S: Patient's mom spoke with [facility] nurse [...] (not a refill) Protocols used: Medication Question [id number] [facility] 11-30-2022 Telephone encounter Note Next appt on 02/21/2023 with . [facility] 11-30-2022 Miscellaneous Notes Next appt on 02/21/2023 with . documented in this encounter [facility] 11-06-2022 Note Called and spoke oliver Jones. Labs were drawn 2 weeks ago. Called [facility]. They will fax results. Total time of phone call: <5 minutes [facility] 10-27-2022 Telephone encounter Note Document signed/faxed. [facility] 10-27-2022 Miscellaneous Notes Document signed/faxed. Called [facility], updated fax number will place fax in office to be signed. Can you please look for this if you haven't seen it? Name of caller: Colt Rosas Contact phone number: [phone] Relationship to Patient: [facility] Provider: Dr. Torres Practice: [facility] Chief Complaint/Reason for Call: Caller states he faxed over standard order for formula supplies and tube feeding on 10.25.22 at 1 pm and would faxed to [phone] and notified once complete. Please advise. Thank you Best time of day caller can be reached: Any Patient advised that office/PCP has 24-48 business hours to return their call: Yes documented in this encounter [facility] 10-27-2022 Telephone encounter Note Called [facility], updated fax number will place fax in office to be signed. [facility] 10-26-2022 Telephone encounter Note Can you please look for this if you haven't seen it? [facility] 10-26-2022 Telephone encounter Note Name of caller: Colt Rosas Contact phone number: [phone] Relationship to Patient: [facility] Health Provider: Dr. Torres Practice: [place] Chief Complaint/Reason for Call: Caller states he faxed over standard order for formula supplies and tube feeding on 10.25.22 at 1 pm and would faxed to [phone] and notified once complete. Please advise. Thank you Best time of day caller can be reached: Any Patient advised that office/PCP has 24-48 business hours to return their call: Yes [facility] 10-20-2022 Telephone encounter Note Reviewed. [facility] 10-20-2022 Miscellaneous Notes Reviewed. Received call from Carolyn at [facility]. She did a re-certification assessment for Eveline. No acute needs identified. Flushed Med-port without difficulty. Medport has no blood return but flushes easily. Carolyn is able to do labs. She would prefer supervising airplane pilot from [facility] draw the labs as Eveline is a difficult venipuncture but would try if needed. She will discuss with Karen. Verbal order to continue nursing services given per Dr Torres. Total time of phone call: <5 minutes documented in this encounter [facility] 10-20-2022 Telephone encounter Note Received call from Carolyn at [facility]. She did a re-certification assessment for Eveline. No acute needs identified. Flushed Med-port without difficulty. Medport has no blood return but flushes easily. Carolyn is able to do labs. She would prefer supervising airplane pilot from [facility] draw the labs as Eveline is a difficult venipuncture but would try if needed. She will discuss with Karen. Verbal order to continue nursing services given per Dr Torres. 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 [facility] 10-11-2022 History of Presen t illness Narrative Images from the original note were not included. documented in this encounter [facility] 09-15-2022 Telephone encounter Note Noted. [facility] 09-15-2022 Miscellaneous Notes Noted. Received call from [facility]. Med port was to be flushed this week- unable to do flush until next week. Will be going on Sunday. Dr Torres notified. Total time of phone call: <5 minutes documented in this encounter [facility] 09-15-2022 Telephone encounter Note Received call from [facility]. Med port was to be flushed this week- unable to do flush until next week. Will be going on Sunday. Dr Torres notified. Total time of phone call: <5 minutes [facility] 09-11-2022 Miscellaneous Notes The following approved medication requests have been transmitted electronically. Requested Prescriptions Signed Prescriptions Disp Refills lamoTRIgine (LAMICTAL) 200 mg tablet 315 tablet 1 Sig: TAKE 2 TABLETS by G-tube EVERY MORNING and TAKE 1 AND 1/2 TABLETS EVERY EVENING Authorizing Provider: CRISTINO SALAZAR APRN.MIXING TANK OPERATOR Prescription Refill: Requested by: pharmacy Please E-Scribe Caller Contact Number: [phone] Pharmacy Name: [facility] Pharmacy Number: [phone] Generic/ brand: Generic 30 or 90 day supply requested: 90 Last appointment: 03/16/21 Next Appointment: None, sent message to S51 for scheduling. Patient of Dr. Phipps documented in this encounter [facility] 08-25-2022 Telephone encounter Note Rx declined, as It was just filled on 08/22/22 at [facility] pharmacy. [facility] 08-25-2022 Miscellaneous Notes Rx declined, as It was just filled on 08/22/22 at [facility] pharmacy. documented in this encounter [facility] 08-09-2022 Telephone encounter Note VV scheduled for tomorrow at 4pm. [facility] 08-09-2022 Miscellaneous Notes VV scheduled for tomorrow at 4pm. Name of caller: Karen Contact phone number: [phone] Relationship to Patient: family member mother Provider: Dr. Bello Practice: [facility] Chief Complaint/Reason for Call: Karen states she thought appt for 08/09 was VV due to pt being on bed rest, mom would like to know if Dr. eBllo can see pt at her 09/13/22 appt with PCP. Please advise. Best time of day caller can be reached: any Patient advised that office/PCP has 24-48 business hours to return their call: N/A documented in this encounter [facility] 08-09-2022 Telephone encounter Note Name of caller: Karen Contact phone number: [phone] Relationship to Patient: family member mother Provider: [...] business hours to return their call: N/A [facility] 07-28-2022 Miscellaneous Notes The following approved medication requests have been transmitted electronically. Requested Prescriptions Signed Prescriptions Disp Refills phenytoin (DILANTIN) 125 mg/5 mL susp 1100 mL 1 Sig: take 6 milliliters by mouth every 12 hours Authorizing Provider: CRISTINO SALAZAR APRN.CNP Prescription Refill: Requested by: pharmacy Please E-Scribe Caller Contact Number: fax [facility] Pharmacy Number: [phone] Generic/ brand: Generic 30 or 90 day supply requested: 90 Last appointment: 03/16/21 Next Appointment: Needs appointment Patient of Dr. Phipps documented in this encounter [facility] 07-28-2022 Telephone encounter Note I'm getting a request for forteo refill but I am not seeing that we have seen this patient yet. Please see if that is the case. Thank you [facility] 07-28-2022 Miscellaneous Notes I'm getting a request for forteo refill but I am not seeing that we have seen this patient yet. Please see if that is the case. Thank you documented in this encounter [facility] 07-26-2022 History of Presen t illness Narrative Images from the original note were not included. Department of Neurological Sciences Section of Epilepsy [facility] [address] [facility] [address] Dept: [phone] Dept Loc: [phone] Patient was seen today via Telehealth by [...] technology: Audio and video capabilities. Per the [facility] for [facility] guidelines, this patient encounter is appropriate and [...] they are currently in the state of [place]. Last in office appointment in [place] was 09/01/21. For concerns related to possible [...] years ago she had been hospitalized at [facility]. She vomits when the the magnet is [...] complicated by cellulitis. Mom is paid via [employer] to work with Eveline full-time. She is [...] prep. Otherwise she has been healthy during [facility]. She has a nurse visiting 3 [...] bright since his passing. SEIZURE HISTORY (Per [facility] Note): Seizure started at age 1-2 years. [...] complications mostly breathing issues and had 2 qfpr-vd-lhml admissions which lasted from about November to February at [facility]. During that time mother reports they [...] risk factors: 1. Head Trauma (no) 2. HEDIS REVIEW NURSE Infections (no) 3. Family History of Seizures (no) 4. Developmental Delay (YES) 5. Febrile Seizures (YES) 6. HEDIS REVIEW NURSE Tumors (no) 7. HEDIS REVIEW NURSE Vascular Disease (no) 8. Significant Medical History: [...] twitching--bicentral rhythmic theta), generalized slowing. MRI (05/30/1996) ([facility]-report not available) unclear results - none (now can't get due to the jason in her back) Anticonvulsant History: -Current AEDs: LEV 100mg/mL [id number] mg (10 mL) TID [prior dosing listed [...] Risk Factors: 1. Head trauma (no); 2. HEDIS REVIEW NURSE infections (no); 3. Family history of seizures (no); 4. Developmental delay (no); 5. Febrile seizures (no); 6. HEDIS REVIEW NURSE tumors (no); 7. HEDIS REVIEW NURSE vascular disease (no); 8. Significant medical history: [...] doses Nitrofurantoin Nausea And Vomiting Pedi-Pre [place] [Wound Dressing Adhesive] Hives and Rash Current [...] Osteoporosis Pressure injury of right buttock, unstageable ([facility]) 10/05/2020 Rett syndrome Scoliosis Seizure ([facility]) Urinary tract infection associated with indwelling urethral catheter ([facility]) 12/01/2020 Social History Tobacco Use [...] remained heals. Karen denies any other wounds. Eveilne has not been on any antibiotic due [...] time spent by provider-only, including documentation, for pre-/jdkc-yi-dwkp/post- visit on the day of the visit ending at midnight on same day of visit). Encounter Code Level Time Spent (min) New Patient [id number] 15-29 [id number] 30-44 97745 45-59 [id number] 60-74 Established Patient [id number] 10-19 69550 20-29 93206 30-39 60300 40-54 Preparing for visit (review testing/procedures/notes) (min) 5 Obtaining history (minutes) 5 Counseling, educating patient/family (minutes) 5 Ordering testing (minutes) Communicating with other providers (minutes) Charting (minutes) 5 Independently interpreting/documenting results (minutes) Communicating test results to patient/family (minutes) Total Time Today (min) = 20 documented in this encounter [facility] 07-14-2022 Note Addended by: MILDRED VARGAS on: 07/14/2022 12:01 PM Modules accepted: Orders [facility] 07-14-2022 Miscellaneous Notes Addended by: MILDRED VARGAS on: 07/14/2022 12:01 PM Modules accepted: Orders [...] call: 16-20 minutes documented in this encounter [facility] 07-14-2022 Telephone encounter Note Phone call [...] for more supplies can be made by sandor Thompson. Sp and I discussed the medications again. She does not feel there is a limit on med volume for whatever can be compounded. She would adjust flushes depending on med volume. Orders sent to [facility]. Total time of phone call: 16-20 minutes [facility] 06-20-2022 Telephone encounter Note Agree with advice given. [facility] 06-20-2022 Miscellaneous Notes Agree with advice given. Received call asking for verbal order to continue home nursing care services for Eveline. Verbal order given to Carolyn to continue services given per Dr Torres. Total time of phone call: <5 minutes documented in this encounter [facility] 06-20-2022 Telephone encounter Note Received call asking for verbal order to continue home nursing care services for Eveline. Verbal order given to Carolyn to continue services given per Dr Torres. Total time of phone call: <5 minutes [facility] 06-10-2022 Telephone encounter Note S: Patient spoke with [facility] nurse regarding Medication concern B: Onset of [...] should be referred to that group. Dr Torres 4. SYMPTOMS: Do you have any symptoms? Denies 5. SEVERITY: If symptoms are present, ask Are they mild, moderate or severe? NA 6. : Is there any chance that you are ? When was your last menstrual period? NA Protocols used: Medication Question [id number] [facility] 06-10-2022 Miscellaneous Notes S: Patient spoke with [...] should be referred to that group. Dr Torres 4. SYMPTOMS: Do you have any symptoms? Denies 5. SEVERITY: If symptoms are present, ask Are they mild, moderate or severe? NA 6. : Is there any chance that you are ? When was your last menstrual period? NA Protocols used: Medication Question [id number] documented in this encounter [facility] 06-05-2022 Note I have reviewed and agree with plan of care. [facility] 06-05-2022 Telephone encounter Note I have reviewed and agree with plan of care. [facility] 06-05-2022 Miscellaneous Notes I have reviewed and agree with plan of care. Received call from Kimberly from [facility]. Verbal order given for Medport Flush. Kimberly will fax agency standardized form for port flushes for PCP signature. Confirmed that PCP is aware that the port does not have a blood return but flushes without resistance. Total time of phone call: <5 minutes documented in this encounter [facility] 06-05-2022 Telephone encounter Note Received call from Kimberly from [facility]. Verbal order given for Medport Flush. Kmiberly will fax agency standardized form for port flushes for PCP signature. Confirmed that PCP is aware that the port does not have a blood return but flushes without resistance. Total time of phone call: <5 minutes [facility] 09-22-2021 Miscellaneous Notes Patient missed appointment and has not been seen in 3 years. Admin called to reschedule. Left for a return phone call. documented in this encounter [facility] 08-24-2021 Miscellaneous Notes The following approved medication requests have been transmitted electronically. Signed Prescriptions Disp Refills phenytoin (DILANTIN) 125 mg/5 mL susp 1100 mL 1 Sig: take 6 milliliters by mouth every 12 hours XOCHITL: No Authorizing Provider: CRISTINO SALAZAR APRN.CNP Prescription Refill: Requested by: pharmacy Please E-Scribe Caller Contact Number: Pharmacy Name: [facility] Pharmacy Number: [phone] Generic/ brand: 30 or 90 day supply requested: 90 Last appointment: 03/16/2021 Next Appointment: none Patient of Dr. Phipps documented in this encounter [facility] 08-23-2021 Miscellaneous Notes The following approved [...] Georgia Higuera APRN.CNP documented in this encounter [facility] 03-16-2021 Note HNO ID: [id number] Author: Georgia Higuera APRN.CNP Service: ? Author Type: Nurse Practitioner Type: Progress Notes Filed: 03/16/2021 2:53 PM Note Text: [facility] Patient Name: Eveline Saavedra Date [...] medication. Mother reports compliance. From Negrita Morris 03/09/2020: Mother reports that there have been [...] to behavior. Enjoys video chats. HISTORY FROM [facility] on 10/18/2018: At the last visit mom [...] last visit. Patient's father last month from [place]. They were very close. They slept in [...] complications mostly breathing issues and had 2 vbdf-jn-foky admissions which lasted from about November to February at [facility]. During that time mother reports they [...] breakthrough seizures which (more content not included)... 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 Cellulitis 02/14/2021 ? Chronic osteomyelitis ([facility]) 02/14/2021 Right ischiopubic chronic osteomyelitis secondary to decubitus ulcer extending to bone ? Developmental delay, profound ? Diarrhea 12/01/2020 ? Indwelling Poe catheter present 12/01/2020 ? Urinary tract infection associated with indwelling urethral catheter ([facility]) 12/01/2020 ? Pressure injury of right buttock, unstageable ([facility]) ? Astigmatism 07/30/2020 ? Contraction, joint, multiple sites 11/12/2019 ? Dysphagia, oropharyngeal 11/12/2019 ? Asthma, moderate persistent 11/12/2019 Albuterol aerosol three times daily routinely PRN with wheezing ? Reflux 11/12/2019 ? Scoliosis 11/12/2019 ? 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 At high risk for malnutrition 11/12/2019 PEPTAMIN VHP 150 cc (0.6 cans) 4 times a day , 100 cc (0.4 can) once a day 3 cans per day Order through [employer] 30 day supply - 3 cases 200 [...] fracture 01/21/2017 left ? Tracheostomy tube present ([facility]) 01/18/2017 Placed 01/18/2017 PORTEX - [employer] Customized Silicone Tracheostomy Tube Uncuffed??Lot:[id number]??REF:SU17 [id number]??I.D 6.5 MM O.D 9.4MM Length 80MM?? NOTE: this is a custom tube Order through [facility] OK for ventilation OK for CPR ? Seborrheic dermatitis 11/11/2012 ? Profound intellectual disabilities 11/11/2012 ? Osteoporosis 11/28/2011 This term is a replacement for an inactive term ? 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 Obstructive sleep apnea (adult) (pediatric) 10/18/2009 Oxygen at night No BiPAP [facility] 3.5 liter HS and PRN ? History of nephrolithiasis 02/04/2008 ? 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 Gastrostomy tube dependent ([facility]) 08/26/2007 HOSPITAL COURSE: 30 y/o F with [...] overlying the left lower neck. Left subclavian Dhtoly-l-Pmxu with tip overlying the SVC. Cholecystectomy clips. 2. Lungs: Mild interstitial prominence. This may be on the basis of mild edema, interstitial pneumonitis or chronic fibrotic change. No focal consolidation is seen. 3. Pleura: No pneumothorax or large pleural effusions. 4. Heart and med (more content not included)... [facility] 10-08-2020 Hospital Discharg Garret Hernandez PA - 10/08/2020 Follow-up your primary care physician. Please try to obtain a stool sample provided for testing. Please do not hesitate to bring the child back with any other concerns. The following attachments cannot be sent through Care Everywhere.Diarrhea (Panamanian)documented in this encounter [facility] Work Phone: 10-06-2020 History of Presen t [...] mediport that reportedly was used previously for extermination supervisor IV antibiotics in the home by Eevline's mother. Per Angelique Powell RN patient's mother [...] for the IV antibiotic infusions. Jose Alberto BROWN,RN,[facility] Perfectserve Dr. Lopez, CHUCK, and PAUL Leon, [...] number: <[phone]). Lab Results Component Value Date [facility] 19.5 10/05/2020 Assessment/Plan: Lower dose at 750mg q12h based on recent trough level stated above and goal trough of 15-20 Will monitor labs for changes in renal function and change dosing as appropriate. Images from the original note were not included. Hospitalist Progress Note 10/05/2020 2:36 PM Subjective: Admit Date: 10/04/2020 PCP: Misty Porter MD Room#: 450/4507 Interval History: F/u admission last night Advertisement Distributor documentation reviewed Plan for wound care only at this time ROS unobtainable from pt Diet NPO Patient Vitals for the past 96 hrs (Last 3 readings): Weight 10/05/20 0604 106 lb 3.2 oz (48.2 kg) [...] Hospitalist Medicine Inpatient Medical Services Janice herrera ENERGY CONSERVATION TECHNICIAN made aware of dieticians recommendations for tube [...] changed to 4 cartons/day of Peptamen Intense BRAZE OPERATOR, pt has been maintaining her weight at [...] decreased mobility) Fluid Accumulation: Unable to assess Lithograph Printer Strength: Not Performed Estimated Daily Nutrient Needs: Energy (kcal): 2550-5651 kcals (wound healing) (25-30); Weight Used for Energy Requirements: Current (48kg) Protein (g): 48-72 (1-1.5); Weight Used for Protein Requirements: Current Fluid (ml/day): 8232-9585; Method Used for Fluid Requirements: 1 ml/kcal [...] lb (64 kg) (over 1.5 yrs ago) Newton Body Weight: 120 lbs; % Newton Body Weight 88.3 % BMI: 18.2 Adjusted [...] Physical Findings Discharge Planning: Enteral Nutrition Contact: *[phone] documented in this encounter [facility] Work Phone: 10-06-2020 [facility] Discharg Bree Saenz RN - 10/06/2020 11:25 AM EDT Your physician has ordered skilled home care services for you. Your home care will be provided by: [facility] [phone] Janice Herrera, JOSI - MIXING TANK OPERATOR - 10/06/2020 1. Right ischium wound: Cleanse wound with saline. Apply nickel thick Santyl ointment to wound bed, cover with Dakin's moist kerlix packing and dry dressing documented in this encounter [facility] Work Phone: documented as of this encounter (statuses as of 08/23/2021) [facility] History of Past illness Narrative* Problem Noted Date Resolved Date Generalized convulsive epilepsy 08/24/2017 08/24/2017 documented as of this encounter (statuses as of 08/24/2021) [facility] History of Past illness Narrative* Problem Noted Date Resolved Date Generalized convulsive epilepsy 08/24/2017 08/24/2017 documented as of this encounter (statuses as of 09/14/2021) [facility] History of Past illness Narrative* Problem Noted Date Resolved Date Generalized convulsive epilepsy 08/24/2017 08/24/2017 documented as of this encounter (statuses as of 09/22/2021) [facility] History of Past illness Narrative* Problem Noted Date Resolved Date Generalized convulsive epilepsy 08/24/2017 08/24/2017 documented as of this encounter (statuses as of 09/11/2022) [facility] History of Past illness Narrative* Problem Noted Date Diagnosed Date Resolved Date Generalized convulsive epilepsy 08/24/2017 08/24/2017 documented as of this encounter (statuses as of 03/02/2023) [facility] Diagnosis Septicemia (HCC)- Primary Unspecified septicemia Pressure injury of right buttock, unstageable (HCC) Sepsis (HCC) documented in this encounter [facility] Work Phone: Evaluation note* Diagnosis Diarrhea, unspecified type- Primary documented in this encounter [facility] Work Phone: Evaluation note* Diagnosis Generalized convulsive epilepsy (HCC) Generalized convulsive epilepsy without mention of intractable epilepsy [facility] Diagnosis Generalized convulsive epilepsy (HCC) Generalized convulsive epilepsy without mention of intractable epilepsy [facility] Diagnosis Allergic rhinitis, unspecified [facility] Spastic quadriplegia (CMS/HCC) (HCC)- Primary Unspecified quadriplegia [facility] Diagnosis Seborrhea capitis Seborrheic dermatitis, unspecified Vitamin D deficiency, unspecified Slow transit constipation [facility] Diagnosis Rett syndrome- Primary Other specified cerebral degenerations in childhood Generalized convulsive epilepsy with intractable epilepsy (CMS/HCC) (HCC) Generalized convulsive epilepsy with intractable epilepsy On antiepileptic therapy [facility] Diagnosis Slow transit constipation [facility] Diagnosis Rett syndrome Other specified cerebral degenerations in childhood Generalized convulsive epilepsy with intractable epilepsy (CMS/HCC) (HCC) Generalized convulsive epilepsy with intractable epilepsy [facility] Diagnosis Generalized convulsive epilepsy (HCC) Generalized convulsive epilepsy without mention of intractable epilepsy [facility] Diagnosis Generalized idiopathic epilepsy and epileptic syndromes, intractable, without status epilepticus (HCC) [facility] Generalized convulsive epilepsy with intractable epilepsy (CMS/HCC) (HCC)- Primary Generalized convulsive epilepsy with intractable epilepsy [facility] Diagnosis Rett syndrome Other specified cerebral degenerations in childhood Generalized convulsive epilepsy with intractable epilepsy (CMS/HCC) (HCC) Generalized convulsive epilepsy with intractable epilepsy [facility] Diagnosis Dermatitis, unspecified [facility] Diagnosis Gastrostomy status (HCC) Gastrostomy status Other specified personal risk factors, not elsewhere classified documented [facility] this [facility] Diagnosis Allergic rhinitis, unspecified [facility]* Diagnosis Dysphagia, oropharyngeal phase documented in this [facility] Diagnosis Slow transit constipation [facility] Diagnosis Osteoporosis without current pathological fracture, unspecified osteoporosis type- Primary Vitamin D deficiency [facility] Diagnosis Generalized convulsive epilepsy (HCC) Generalized convulsive epilepsy without mention of intractable epilepsy documented in this encounter [facility] note* Diagnosis Generalized idiopathic epilepsy and epileptic syndromes, intractable, without status epilepticus (HCC) documented [facility] Diagnosis Aspiration pneumonia, unspecified aspiration pneumonia type, unspecified laterality, unspecified part of lung (HCC)- Primary Hypokalemia Hypopotassemia documented in this encounter [facility] Summary Purpose Family History No Family History Records FoundNo Family History Records FoundNo Family History Records FoundNo Family History Records FoundNo Family History Records FoundNo Family History Records FoundNo Family History Records Found Advance Directives No Advanced Directives Records FoundDocuments on File Type Date Recorded Patient Permastone Applicator Expl anation ACP-Advance Directive ACP-Power of Maid Cleaning Cooking Latest Code Status on File Code Status [...] DATE CREATED AUTHOR AUTHOR'S ORGANIZ ATION 07/12/2018 [facility] DATE CREATED AUTHOR AUTHOR'S ORGANIZ ATION 10/22/2018 [facility] DATE CREATED AUTHOR AUTHOR'S ORGANIZ ATION 03/13/2020 [facility] DATE CREATED AUTHOR AUTHOR'S ORGANIZ ATION 09/23/2021 [facility] DATE CREATED AUTHOR AUTHOR'S ORGANIZ ATION 10/27/2021 [facility] DATE CREATED AUTHOR AUTHOR'S ORGANIZ ATION 05/15/2023 [facility] Reason for Visit (unrecogniz ed section and [...] Reason Onset Date Comments Refill Request 07/28/2022 Reason Onset Date Comments Reclast 02/21/2023 Reason Onset Date Comments Fever 05/06/2023 Ordered Prescriptions (unrec ognized section and content) [...] HOURS PRN, Wheezing, Starting on Sun10/04/20 at 1953 Loperamide HCl (IMODIUM) 2 MG/15ML solution 2 [...]
Administer if oral route cannot be used.
Scheduled Medication Order 05/09/2023 05/10/2023 05/11/2023 potassium chloride IVPB 10 mEq (COMPLETED) 10 mEq, IntraVENous, at 100 mL/hr, Administer over 1 Hours, Once, On Sun05/11/23 at 1415, For 1 dose 1549 (New Bag - Prov ider: Anne Chandra RN)1656 (Stopped - Provider: Anne Chandra RN) potassium chloride IVPB 10 mEq (COMPLETED) 10 mEq, IntraVENous, at 100 mL/hr, Administer over 1 Hours, Every 1 hour, First dose on Sun05/11/23 at 1650, For 2 doses 1657 (New Bag - Prov ider: Anne Chandra RN)1730 (Stopped - Provider: Anne Chandra RN)1750 (New Bag - Provider: Anne Chandra RN)1904 (Stopped - Provider: Anne Chandra RN) PRN Medication Order 05/09/2023 05/10/2023 05/11/2023 iopamidol (Isovue-370) 76 % injection 75 mL (COMPLETED) 75 mL, IntraVENous, IMG once PRN, contrast, Starting on Sun05/11/23 at 2100, For 1 dose 2101 (Given - Provid er: Nubia Nelson, (R)(CT)) Care Teams (unrecognized sec tion and content) Molecular Genetic Pathologist Relationship Specialty Start Date End Date Misty Porter MD [address] [facility] [address] [address] PCP - General Internal Medicine 12/21/19 Molecular Genetic Pathologist Relationship Specialty Start Date End Date Misty Porter MD [address] [address] PCP - General Internal Medicine 12/21/19 Molecular Genetic Pathologist Relationship Specialty Start Date End Date Misty Porter MD [address] [phone] PCP - General Internal Medicine 12/21/19 Molecular Genetic Pathologist Relationship Specialty Start Date End Date Padmini Torresche Francis [address] [facility] [address] [place] [phone] PCP - General Family Medicine 07/14/21 Molecular Genetic Pathologist Relationship Specialty Start Date End Date Misty Porter [address] [place] [phone] PCP - General Family Practice 08/16/21 Molecular Genetic Pathologist Relationship Specialty Start Date End Date Misty Porter [address] [place] [address] PCP - General Family Practice 08/16/21 Molecular Genetic Pathologist Relationship Specialty Start Date End Date KarleyLolis DO [address] [facility] [address] [place] [phone] PCP - General Family Medicine 07/14/21 Molecular Genetic Pathologist Relationship Specialty Start Date End Date Misty Porter [address] [place] [address] PCP - General Family Practice 08/16/21 Molecular Genetic Pathologist Relationship Specialty Start Date End Date KarleyLolis [address] [facility] [address] [place] [phone] PCP - General Family Medicine 07/14/21 Molecular Genetic Pathologist Relationship Specialty Start Date End Date Misty Porter [address] [place] [address] PCP - General Family Practice 08/16/21 Molecular Genetic Pathologist Relationship Specialty Start Date End Date KarleyLolis [address] [facility] [address] [place] [address] PCP - General Family Medicine 07/14/21 Molecular Genetic Pathologist Relationship Specialty Start Date End Date Lolis Torres, DO [address] [facility], [address] [place] [address] PCP - General Family Medicine 07/14/21 Molecular Genetic Pathologist Relationship Specialty Start Date End Date Lolis Torres, DO [address] [facility], [address] [place] [address] PCP - General Family Medicine 07/14/21 Chris Goff, [facility] [address] [place] [address] Pharmacist 11/01/21 Neri Vargas SALES REPRESENTATIVE GRAPHIC ART - MIXING TANK OPERATOR [address] [facility] [address] [place] [phone] Nurse Practitioner Nurse Practitioner 04/12/22 Zahira Cedeno MD [address] [facility] [address] [facility] [place] [address] Family Medicine 04/12/22 Molecular Genetic Pathologist Relationship Specialty Start Date End Date Lolis Torres DO [address] [facility], [address] [place] [address] PCP - General Family Medicine 07/14/21 Chris Goff, [facility] [address] [place] [address] Pharmacist 11/01/21 Neri Vargas SALES REPRESENTATIVE GRAPHIC ART - MIXING TANK OPERATOR [address] [facility] [address] [place] [phone] Nurse Practitioner Nurse Practitioner 04/12/22 Zahira Cedeno MD [address] [facility] [address] [place] [address] Family Medicine 04/12/22 Molecular Genetic Pathologist Relationship Specialty Start Date End Date Lolis Torres DO [address] [facility], [address] [place] [address] PCP - General Family Medicine 07/14/21 Chris Goff, [facility] [address] [place] [address] Pharmacist 11/01/21 Neri Vargas SALES REPRESENTATIVE GRAPHIC ART - MIXING TANK OPERATOR [address] [facility] [address] [place] [address] Nurse Practitioner Nurse Practitioner 04/12/22 Zahira Cedeno MD [address] [facility] [address] [place] [address] Family Medicine 04/12/22 Molecular Genetic Pathologist Relationship Specialty Start Date End Date Lolis Torres [address] [facility], [address] [place] [address] PCP - General Family Medicine 07/14/21 Chris Goff, [facility] [address] [place] [address] Pharmacist 11/01/21 Neri Vargas, SALES REPRESENTATIVE GRAPHIC ART - MIXING TANK OPERATOR [address] [facility] [address] [place] [address] Nurse Practitioner Nurse Practitioner 04/12/22 Zahira Cedeno MD [address] [facility] [address] [place] [address] Family Medicine 04/12/22 Molecular Genetic Pathologist Relationship Specialty Start Date End Date Lolis Torres DO [address] [facility], [address] [place] [address] PCP - General Family Medicine 07/14/21 Chris Goff, [facility] [address] [place] [address] Pharmacist 11/01/21 Neri Vargas, SALES REPRESENTATIVE GRAPHIC ART - MIXING TANK OPERATOR [address] [facility] [address] [place] [address] Nurse Practitioner Nurse Practitioner 04/12/22 Zahira Cedeno MD [address] [facility] [address] [place] [address] Family Medicine 04/12/22 Molecular Genetic Pathologist Relationship Specialty Start Date End Date Lolis Torres DO [address] [facility], [address] [place] [address] PCP - General Family Medicine 07/14/21 [facility] [address] [place] [address] Pharmacist 11/01/21 Neri Vargas SALES REPRESENTATIVE GRAPHIC ART - MIXING TANK OPERATOR [address] [facility] [address] [place] [phone] Nurse Practitioner Nurse Practitioner 04/12/22 Zahira Cedeno MD [address] [facility] [address] [place] [address] Family Medicine 04/12/22 Molecular Genetic Pathologist Relationship Specialty Start Date End Date Lolis Torres DO [address] [facility], [address] [place] [address] PCP - General Family Medicine 07/14/21 [facility] [address] [place] [address] Pharmacist 11/01/21 Neri Vargas SALES REPRESENTATIVE GRAPHIC ART - MIXING TANK OPERATOR [address] [facility] [address] [place] [address] Nurse Practitioner Nurse Practitioner 04/12/22 Zahira Cedeno MD [address] [facility] [address] [place] [address] Family Medicine 04/12/22 Molecular Genetic Pathologist Relationship Specialty Start Date End Date Lolis Torres DO [address] [facility], [address] [place] [address] PCP - General Family Medicine 07/14/21 Chris Goff, [facility] [address] [place] [address] Pharmacist 11/01/21 Neri Vargas SALES REPRESENTATIVE GRAPHIC ART - MIXING TANK OPERATOR [address] [facility] [address] [place] [address] Nurse Practitioner Nurse Practitioner 04/12/22 Zahira Cedeno MD [address] [facility] [address] [place] [address] Family Medicine 04/12/22 Molecular Genetic Pathologist Relationship Specialty Start Date End Date Lolis Torres DO [address] [facility], [address] [place] [address] PCP - General Family Medicine 07/14/21 Chris Goff, [facility] [address] [place] [address] Pharmacist 11/01/21 Neri Vargas SALES REPRESENTATIVE GRAPHIC ART - MIXING TANK OPERATOR [address] [facility] [address] [place] [address] Nurse Practitioner Nurse Practitioner 04/12/22 Zahira Cedeno MD [address] [facility] [address] [place] [address] Family Medicine 04/12/22 Molecular Genetic Pathologist Relationship Specialty Start Date End Date Lolis Torres DO [address] [facility], [address] [place] [address] PCP - General Family Medicine 07/14/21 Chris Goff, [facility] [address] [place] [address] Pharmacist 11/01/21 Neri Vargas SALES REPRESENTATIVE GRAPHIC ART - MIXING TANK OPERATOR [address] [facility] [address] [place] [address] Nurse Practitioner Nurse Practitioner 04/12/22 Zahira Cedeno MD [address] [facility] [address], [place] [phone] Family Medicine 04/12/22 Molecular Genetic Pathologist Relationship Specialty Start Date End Date Misty Porter PCP - General Family Medicine 08/16/21 Molecular Genetic Pathologist Relationship Specialty Start Date End Date Lolis Torres DO [address] [facility] [address] [place] [phone] PCP - General Family Medicine 07/14/21 Chris Goff [facility] [address] [place] [address] Pharmacist 11/01/21 Neri Vargas APRN - MIXING TANK OPERATOR [address] [place] [phone] Nurse Practitioner Nurse Practitioner 04/12/22 Zahira Cedeno MD [address], [place] [phone] Family Medicine 04/12/22 Molecular Genetic Pathologist Relationship Specialty Start Date End Date Lolis Torres DO [address] [facility] [address] [place] [address] PCP - General Family Medicine 07/14/21 Chris Goff [facility] [address] [place] [address] Pharmacist 11/01/21 Neri Vargas APRN - MIXING TANK OPERATOR [address] [phone] Nurse Practitioner Nurse Practitioner 04/12/22 Zahira Cedeno MD [address] [facility] [address] [phone] Family Medicine 04/12/22 Molecular Genetic Pathologist Relationship Specialty Start Date End Date Lolis Torres DO [address] [facility] [address] [place] [phone] PCP - General Family Medicine 07/14/21 Chris Goff [facility] 55 [place], [place] [phone] Pharmacist 11/01/21 Neri Vargas APRN - MIXING TANK OPERATOR [address] [phone] Nurse Practitioner Nurse Practitioner 04/12/22 Zahira Cedeno MD [address] [phone] Family Medicine 04/12/22 Molecular Genetic Pathologist Relationship Specialty Start Date End Date Lolis Torres DO [address] [phone] PCP - General Family Medicine 07/14/21 Chris Goff [facility] [address] [place] [address] Pharmacist 11/01/21 Neri Vargas APRN - MIXING TANK OPERATOR [address] [phone] Nurse Practitioner Nurse Practitioner 04/12/22 Zahira Cedeno MD [address] [phone] Family Medicine 04/12/22 Molecular Genetic Pathologist Relationship Specialty Start Date End Date Lolis Torres DO [address] [facility] [address] [place] [address] PCP - General Family Medicine 07/14/21 Chris Goff [facility] [address] [place] [address] Pharmacist 11/01/21 Neri Vargas APRN - MIXING TANK OPERATOR [address] [phone] Nurse Practitioner Nurse Practitioner 04/12/22 Zahira Cedeno MD [address] [address] Family Medicine 04/12/22 Molecular Genetic Pathologist Relationship Specialty Start Date End Date Lolis Torres DO [address] [address] PCP - General Family Medicine 07/14/21 Chris Goff [facility] [address] [place] [address] Pharmacist 11/01/21 Neri Vargas SALES REPRESENTATIVE GRAPHIC ART - MIXING TANK OPERATOR [address] [phone] Nurse Practitioner Nurse Practitioner 04/12/22 Zahira Cedeno MD [address] [phone] Family Medicine 04/12/22 Molecular Genetic Pathologist Relationship Specialty Start Date End Date Lolis Torres DO [address] [facility] [address] [place] [phone] PCP - General Family Medicine 07/14/21 Chris Goff [facility] [address] [facility] [place] [address] Pharmacist 11/01/21 Neri Vargas APRN - MIXING TANK OPERATOR [address] [place] [phone] Nurse Practitioner Nurse Practitioner 04/12/22 Zahira Cedeno MD [address], [place] [phone] Family Medicine 04/12/22 Molecular Genetic Pathologist Relationship Specialty Start Date End Date Lolis Torres DO [address] [place] [address] PCP - General Family Medicine 07/14/21 [facility] 55 [place] [address] Pharmacist 11/01/21 Neri Vargas SALES REPRESENTATIVE GRAPHIC ART - MIXING TANK OPERATOR [address] [place] [phone] Nurse Practitioner Nurse Practitioner 04/12/22 Zahira Cedeno MD [address] [facility] [address] [facility] [place] [phone] Family Medicine 04/12/22 Molecular Genetic Pathologist Relationship Specialty Start Date End Date Lolis Torres DO [address] [facility] [address] [place] [phone] PCP - General Family Medicine 07/14/21 Chris Goff [facility] [address] [place] [address] Pharmacist 11/01/21 Neri Vargas APRN - MIXING TANK OPERATOR [address] [facility] [address] [place] [phone] Nurse Practitioner Nurse Practitioner 04/12/22 Zahira Cedeno MD [address] [place], [place] [phone] Family Medicine 04/12/22 Molecular Genetic Pathologist Relationship Specialty Start Date End Date Misty Porter MD PCP - General Family Medicine 08/16/21 Molecular Genetic Pathologist Relationship Specialty Start Date End Date Misty Porter MD PCP - General Family Medicine 08/16/21 Molecular Genetic Pathologist Relationship Specialty Start Date End Date Lolis Torres DO 55 [facility], [address] [place] [phone] PCP - General Family Medicine 07/14/21 Chris Goff [facility] [address] [place] [address] Pharmacist 11/01/21 Neri Vargas APRN - MIXING TANK OPERATOR [address] [facility] [address] [place] [phone] Nurse Practitioner Nurse Practitioner 04/12/22 Zahira Cedeno MD [address] [facility] [address] [place], [place] [id number] Family Medicine 04/12/22 Molecular Genetic Pathologist Relationship Specialty Start Date End Date Lolis Torres DO [address] [facility] [address] [place] [phone] PCP - General Family Medicine 07/14/21 Chris Goff [facility] [address] [place] [address] Pharmacist 11/01/21 Neri Vargas SALES REPRESENTATIVE [employer] - MIXING TANK OPERATOR [address] [phone] Nurse Practitioner Nurse Practitioner 04/12/22 Zahira Cedeno MD [address] [phone] Family Medicine 04/12/22 Molecular Genetic Pathologist Relationship Specialty Start Date End Date Lolis Torres DO [address] [place] [phone] PCP - General Family Medicine 07/14/21 Chris Goff, [facility] [address] [place] [address] Pharmacist 11/01/21 Neri Vagras SALES REPRESENTATIVE GRAPHIC ART - MIXING TANK OPERATOR [address] [phone] Nurse Practitioner Nurse Practitioner 04/12/22 Zahira Cedeno MD [address] [facility] [address] [phone] Family Medicine 04/12/22 Molecular Genetic Pathologist Relationship Specialty Start Date End Date Lolis Torres DO [address] [phone] PCP - General Family Medicine 07/14/21 Chris Goff [facility] [address] [place], [place] [phone] Pharmacist 11/01/21 Neri Vargas APRN - MIXING TANK OPERATOR [address] [phone] Nurse Practitioner Nurse Practitioner 04/12/22 Zahira Cedeno MD [address] [phone] Family Medicine 04/12/22 Molecular Genetic Pathologist Relationship Specialty Start Date End Date Lolis Torres DO [address] [phone] PCP - General Family Medicine 07/14/21 Chris Goff [facility] [address] [place] [address] Pharmacist 11/01/21 Neri Vargas APRN - CNP [address] [phone] Nurse Practitioner Nurse Practitioner 04/12/22 Zahira Cedeno MD [address] [phone] Family Medicine 04/12/22 Source Comments (unrecognize d section and content) In the event this informatio n is protected by the Federal Confidentiality of Alcohol and Drug Abuse Patient Records regulations: The Federal rules restrict any use of the information to criminally investigate or prosecute any alcohol or drug abuse patient.[facility] the event this information is protected by the Federal Confidentiality of Alcohol and Drug Abuse Patient Records regulations: The Federal rules restrict any use of the information to criminally investigate or prosecute any alcohol or drug abuse patient.[facility] the event this information is protected by the Federal Confidentiality of Alcohol and Drug Abuse Patient Records regulations: The Federal rules restrict any use of the information to criminally investigate or prosecute any alcohol or drug abuse patient.[facility] the event this information is protected by the Federal Confidentiality of Alcohol and Drug Abuse Patient Records regulations: The Federal rules restrict any use of the information to criminally investigate or prosecute any alcohol or drug abuse patient.[facility] the event this information is protected by the Federal Confidentiality of Alcohol and Drug Abuse Patient Records regulations: The Federal rules restrict any use of the information to criminally investigate or prosecute any alcohol or drug abuse patient.[facility] the event this information is protected by the Federal Confidentiality of Alcohol and Drug Abuse Patient Records regulations: The Federal rules restrict any use of the information to criminally investigate or prosecute any alcohol or drug abuse patient.[facility] the event this information is protected by the Federal Confidentiality of Alcohol and Drug Abuse Patient Records regulations: The Federal rules restrict any use of the information to criminally investigate or prosecute any alcohol or drug abuse patient.[facility] FOR RECORDS PERTAINING TO PATIENTS WHO [...] BE BASED ON THE PRIMARY CLINICAL RECORDS. [facility]. provides no warranty or guarantee of the accuracy or completeness of information in this document.
[2023-05-17 09:41] LABS: Absolute Lymphocyte Count 2.38 X10^3/uL (0.83-4.51); Absolute Neutrophil Count 3.8 X10^3/uL (2.0-7.7); Basophil# 0.08 X10^3/uL; Basophil% 1.1 % (0-1); Eosinophil# 0.32 X10^3/uL; Eosinophils% 4.3 % (0-5); Hematocrit 42.6 % (37-47); Hemoglobin 13.2 g/dL (12.0-15.0); Lymphocyte # 2.38 X10^3/ul (0.83-4.51); Lymphocyte % 32.2 % (19-41); Mean Corpuscular Hgb 30.8 pg (27.0-32.0); Mean Corpuscular Volume 99.5 fL (81-99); Mean Platelet Vol. 8.9 fl (6.2-12.0); Monocyte% 8.1 % (0-10); NRBC Flagged by Analyzer 0 % (0-5); Neutrophil % 51.6 % (47-70); Platelet Count 303 K/mm3 (150-450); RBC Distribution Width CV 12.7 % (11.6-14.6); RBC Distribution Width SD 46.4 fl (35.1-43.9); Red Blood Count 4.28 M/mm3 (4.2-5.4); White Blood Count 7.4 K/mm3 (4.4-11.0)
[2023-05-17 09:42] LABS: Anion Gap 2 (5-15); BUN 28 mg/dL (7-18); BUN/Creat Ratio 111.6 RATIO (10-20); Calcium,Total 9.1 mg/dL (8.5-10.1); Chloride 111 mmol/L (98-107); Creatinine, Serum 0.25 mg/dL (0.55-1.02); EST Glomerular Filtration Rate 339 mL/min (>60); Est Glom Filt Rate - Afr Amer 410 mL/min (>60); Glucose 122 mg/dL (74-106); Magnesium 1.9 mg/dL (1.6-2.6); Potassium 3.5 mmol/L (3.5-5.1); Sodium Level 144 mmol/L (136-145)
== END | disposition home or self-care (01) ==
LOC: LAB 04:36
DX: E87.6 Hypokalemia (principal); D72.828 Other elevated white blood cell count
CPT/HCPCS: 36415; 80048; 83735; 85025

== ENCOUNTER → 2023-06-20 | Outpatient (CLI) | payer MEDICAID, SELFPAY ==
[2023-06-20 07:56] LABS: Absolute Lymphocyte Count 2.21 X10^3/uL (0.83-4.51); Absolute Neutrophil Count 8.2 X10^3/uL (2.0-7.7); Basophil# 0.06 X10^3/uL; Basophil% 0.5 % (0-1); Eosinophils% 2.5 % (0-5); Hematocrit 42.5 % (37-47); Hemoglobin 13.6 g/dL (12.0-15.0); Lymphocyte # 2.21 X10^3/ul (0.83-4.51); Lymphocyte % 18.1 % (19-41); Mean Corpuscular Hgb 31.3 pg (27.0-32.0); Mean Corpuscular Volume 97.9 fL (81-99); Mean Platelet Vol. 8.9 fl (6.2-12.0); Monocyte# 1.32 X10^3/uL; Monocyte% 10.8 % (0-10); NRBC Flagged by Analyzer 0 % (0-5); Neutrophil # 8.24 X10^3/uL (2.7-7.7); Neutrophil % 67.6 % (47-70); Platelet Count 286 K/mm3 (150-450); RBC Distribution Width CV 13.2 % (11.6-14.6); RBC Distribution Width SD 47.4 fl (35.1-43.9); Red Blood Count 4.34 M/mm3 (4.2-5.4); White Blood Count 12.2 K/mm3 (4.4-11.0)
[2023-06-20 08:44] LABS: ALB/GLOB Ratio 0.6 RATIO (0.9-2.4); AST(SGOT) 18 U/L (15-37); Alanine Aminotransfer ALT/SGPT 23 U/L (13-56); Albumin, Serum 2.8 g/dL (3.2-5.0); Alkaline Phosphatase 71 U/L (45-117); Anion Gap 2 (5-15); BUN 19 mg/dL (7-18); BUN/Creat Ratio 87.2 RATIO (10-20); Calcium,Total 9.1 mg/dL (8.5-10.1); Chloride 104 mmol/L (98-107); Creatinine, Serum 0.22 mg/dL (0.55-1.02); EST Glomerular Filtration Rate 399 mL/min (>60); Est Glom Filt Rate - Afr Amer 482 mL/min (>60); Globulin 4.5 g/dL (2.2-4.2); Glucose 99 mg/dL (74-106); Magnesium 2.2 mg/dL (1.6-2.6); Potassium 3.9 mmol/L (3.5-5.1); Protein, Total 7.3 g/dL (6.4-8.2); Sodium Level 139 mmol/L (136-145)
[2023-06-20 09:30] LABS: BNP,B-Type NATRIURETIC PEPTIDE 15.9 pg/mL (0-100)
== END | disposition home or self-care (01) ==
LOC: LAB 04:19
PROVIDERS: Visit Provider Nurse Practitioner Pediatrics
DX: D72.828 Other elevated white blood cell count (principal); Z91.89 Other specified personal risk factors, not elsewhere classified; R09.02 Hypoxemia; R06.82 Tachypnea, not elsewhere classified
CPT/HCPCS: 36415; 80053; 83735; 83880; 85025

== ENCOUNTER → 2023-07-06 | Outpatient (CLI) | payer MEDICAID, SELFPAY ==
[2023-07-06 09:10] LABS: Absolute Lymphocyte Count 2.11 X10^3/uL (0.83-4.51); Absolute Neutrophil Count 4.9 X10^3/uL (2.0-7.7); Basophil# 0.05 X10^3/uL; Basophil% 0.6 % (0-1); Eosinophil# 0.29 X10^3/uL; Eosinophils% 3.6 % (0-5); Hematocrit 44.3 % (37-47); Hemoglobin 14.4 g/dL (12.0-15.0); Lymphocyte # 2.11 X10^3/ul (0.83-4.51); Lymphocyte % 26.4 % (19-41); Mean Corp Hgb Conc 32.5 g/dL (32-36); Mean Corpuscular Hgb 31.3 pg (27.0-32.0); Mean Corpuscular Volume 96.3 fL (81-99); Mean Platelet Vol. 8.9 fl (6.2-12.0); Monocyte# 0.62 X10^3/uL; Monocyte% 7.8 % (0-10); NRBC Flagged by Analyzer 0 % (0-5); Neutrophil # 4.89 X10^3/uL (2.7-7.7); Neutrophil % 61.2 % (47-70); Platelet Count 268 K/mm3 (150-450); RBC Distribution Width CV 12.6 % (11.6-14.6); RBC Distribution Width SD 44.5 fl (35.1-43.9)
[2023-07-06 09:54] LABS: Anion Gap 4 (5-15); BUN 23 mg/dL (7-18); BUN/Creat Ratio 90.6 RATIO (10-20); Calcium,Total 9.2 mg/dL (8.5-10.1); Chloride 102 mmol/L (98-107); Creatinine, Serum 0.25 mg/dL (0.55-1.02); EST Glomerular Filtration Rate 334 mL/min (>60); Est Glom Filt Rate - Afr Amer 404 mL/min (>60); Glucose 120 mg/dL (74-106); Magnesium 2.1 mg/dL (1.6-2.6); Phosphorus 3.6 mg/dL (2.5-4.9); Potassium 3.9 mmol/L (3.5-5.1); Sodium Level 138 mmol/L (136-145)
== END | disposition home or self-care (01) ==
LOC: LAB 04:30
DX: R19.5 Other fecal abnormalities (principal)
CPT/HCPCS: 36415; 80048; 83735; 84100; 85025

== ENCOUNTER → 2023-07-20 | Outpatient (CLI) | payer MEDICAID, SELFPAY ==
[2023-07-20 09:14] LABS: Anion Gap 1 (5-15); BUN 23 mg/dL (7-18); BUN/Creat Ratio 116.8 RATIO (10-20); Calcium,Total 9.4 mg/dL (8.5-10.1); Chloride 102 mmol/L (98-107); EST Glomerular Filtration Rate 448 mL/min (>60); Est Glom Filt Rate - Afr Amer 542 mL/min (>60); Glucose 90 mg/dL (74-106); Sodium Level 139 mmol/L (136-145); Thyroid Stim Hormone (TSH) 0.98 uIU/mL (0.358-3.74)
== END | disposition home or self-care (01) ==
LOC: LAB 04:35
DX: R63.5 Abnormal weight gain (principal); E87.70 Fluid overload, unspecified; E87.6 Hypokalemia; R19.5 Other fecal abnormalities
CPT/HCPCS: 36415; 80048; 84443; 87493; 87506

== ENCOUNTER → 2023-09-28 | Outpatient (CLI) | payer MEDICAID, SELFPAY ==
[2023-09-28 08:30] LABS: Absolute Lymphocyte Count 2.05 X10^3/uL (0.83-4.51); Absolute Neutrophil Count 3.4 X10^3/uL (2.0-7.7); Basophil# 0.03 X10^3/uL; Basophil% 0.5 % (0-1); Eosinophil# 0.32 X10^3/uL; Eosinophils% 4.9 % (0-5); Hematocrit 41.5 % (37-47); Hemoglobin 13.5 g/dL (12.0-15.0); Lymphocyte # 2.05 X10^3/ul (0.83-4.51); Lymphocyte % 31.5 % (19-41); Mean Corp Hgb Conc 32.5 g/dL (32-36); Mean Corpuscular Hgb 30.6 pg (27.0-32.0); Mean Corpuscular Volume 94.1 fL (81-99); Monocyte# 0.72 X10^3/uL; Monocyte% 11.1 % (0-10); NRBC Flagged by Analyzer 0 % (0-5); Neutrophil # 3.36 X10^3/uL (2.7-7.7); Neutrophil % 51.5 % (47-70); Platelet Count 241 K/mm3 (150-450); RBC Distribution Width CV 12.1 % (11.6-14.6); RBC Distribution Width SD 41.7 fl (35.1-43.9); Red Blood Count 4.41 M/mm3 (4.2-5.4); White Blood Count 6.5 K/mm3 (4.4-11.0)
[2023-09-28 08:49] LABS: Vitamin B12 1058 pg/mL (211-911); Vitamin D,25 Hydroxy 78.4 ng/mL
[2023-09-28 09:24] LABS: Ferritin 34 ng/mL (8-252); Iron 98 ug/dL (50-170); Iron Binding Capacity,Total 348 ug/dL (250-450); Lipase 48 U/L (13-75); Magnesium 1.9 mg/dL (1.6-2.6); PERCENT IRON SATURATION 28.2 % (15.0-55.0); Phosphorus 3.7 mg/dL (2.5-4.9); Prealbumin 34.7 mg/dL (20.0-40.0); Thyroid Stim Hormone (TSH) 0.99 uIU/mL (0.358-3.74)
[2023-10-02 18:08] LABS: Vitamin B1, Thiamine 188.1 nmol/L (66.5-200.0); Zinc, Plasma or Serum 82 ug/dL (44-115)
== END | disposition home or self-care (01) ==
DX: K90.9 Intestinal malabsorption, unspecified (principal); R63.5 Abnormal weight gain
CPT/HCPCS: 36415; 82306; 82607; 82728; 82746; 83540; 83550; 83690; 83735; 84100; 84134; 84425; 84443; 84630; 85025

== ENCOUNTER → 2023-11-23 | Outpatient (CLI) | payer MEDICAID, SELFPAY ==
[2023-11-23 09:08] LABS: ALB/GLOB Ratio 0.7 RATIO (0.9-2.4); AST(SGOT) 16 U/L (15-37); Alanine Aminotransfer ALT/SGPT 21 U/L (13-56); Albumin, Serum 2.8 g/dL (3.2-5.0); Alkaline Phosphatase 51 U/L (45-117); Anion Gap 5 (5-15); BUN 29 mg/dL (7-18); BUN/Creat Ratio 118.9 RATIO (10-20); Calcium,Total 9.1 mg/dL (8.5-10.1); Chloride 109 mmol/L (98-107); Creatinine, Serum 0.24 mg/dL (0.55-1.02); EST Glomerular Filtration Rate 349 mL/min (>60); Est Glom Filt Rate - Afr Amer 422 mL/min (>60); Glucose 90 mg/dL (74-106); Potassium 3.5 mmol/L (3.5-5.1); Protein, Total 6.8 g/dL (6.4-8.2); Sodium Level 138 mmol/L (136-145)
== END | disposition home or self-care (01) ==
LOC: LAB 04:28
DX: E87.5 Hyperkalemia (principal); R74.01 Elevation of levels of liver transaminase levels
CPT/HCPCS: 36415; 80053; 80177; 82542